=== PATIENT | male | born 1955 | race American Indian/Alaskan Native ===

== ENCOUNTER 2016-10-31 11:22 | Day surgery (SDC) | payer OTHER ==
[2016-10-31] MEDS ORDERED: NACL 0.9% 1000 ML 1,000 ML IV SCH (13:00)
[2016-10-31] MEDS ORDERED: WATER FOR IRRIG STERILE IR ONE (13:13)
[2016-10-31] MEDS ORDERED: DIPRIVAN 10 MG/ML IV ONE ×2 (13:32)
--- NOTE | 2016-10-31 13:47 | Anesthesia Consultation ---
Anesthesia Consult and Med Hx Date of service: 10/31/16 - Airway Anesthetic Teeth Evaluation: Good ROM Head & Neck: Adequate Mental/Hyoid Distance: Adequate Mallampati Class: Class II Intubation Access Assessment: Good - Pulmonary Exam CTA: Yes - Cardiac Exam Cardiac Exam: No Murmur - Pre-Operative Health Status ASA Pre-Surgery Classification: ASA2 Proposed Anesthetic Plan: MAC - Pulmonary Hx Smoking: Yes SOB: Yes Hx Sleep Apnea: No - Cardiovascular System Hx Hypertension: Yes - Central Nervous System Hx Psychiatric Problems: No - Other Systems Hx Cancer: No
[2016-10-31] MEDS ORDERED: GI SPOT IJ ONE (15:15)
--- NOTE | 2016-10-31 15:18 | Post Anesthesia Evaluation ---
- Post Anesthesia Evaluation Patient Participated: Yes Airway Patent: Yes Stable Respiratory Function: Yes Nausea/Vomiting: No Temp > 96.8F: Yes Pain Manageable: Yes Adequeate Hydration: Yes Anesthesia Complications: No
--- NOTE | 2016-10-31 15:40 | History and Physical Report ---
History of Present Illness Date of examination: 10/31/16 Date of admission: 10/31/2016 Chief complaint: Colorectal cancer screening History of present illness: 60 year old male referred for colorectal cancer screening Past History Past Medical History: GERD, hypertension Social history: denies: smoking, alcohol abuse Family history: hypertension Medications and Allergies Allergies Allergy/AdvReac Type Severity Reaction Status Date / Time No Known Allergies Allergy Verified 04/25/15 06:08 Home Medications Medication Instructions Recorded Confirmed Last Taken Type Amlodipine Besylate/Benazepril 1 cap PO DAILY 04/25/15 10/31/16 10/31/16 08:00 History [amLODIPine-Benazepril 10/40 mg] predniSONE [Deltasone] 20 mg PO QDAY 04/25/15 10/31/16 10/30/16 History Losartan [Cozaar] 100 mg PO QDAY 10/31/16 10/31/16 10/31/16 08:00 History Active Meds: Active Medications Sodium Chloride (Nacl 0.9% 1000 Ml) 1,000 mls @ 75 mls/hr IV DIRECT CRISTINA Last Admin: 10/31/16 12:35 Dose: 75 mls/hr Review of Systems All systems: negative Exam - Constitutional Vitals: Temp Pulse Resp BP Pulse Ox 97.2 F L 65 18 158/90 97 10/31/16 12:20 10/31/16 12:20 10/31/16 12:20 10/31/16 12:20 10/31/16 12:20 General appearance: Present: no acute distress, well-nourished - EENT Eyes: Present: PERRL ENT: hearing intact, clear oral mucosa - Neck Neck: Present: supple, normal ROM - Respiratory Respiratory effort: normal Respiratory: bilateral: CTA - Cardiovascular Heart Sounds: Present: S1 & S2. Absent: rub, click - Extremities Extremities: pulses symmetrical, No edema Peripheral Pulses: within normal limits - Abdominal General gastrointestinal: Present: soft, non-tender, non-distended, normal bowel sounds Male genitourinary: Present: normal - Integumentary Integumentary: Present: clear, warm, dry - Musculoskeletal Musculoskeletal: gait normal, strength equal bilaterally - Psychiatric Psychiatric: appropriate mood/affect, intact judgment & insight - Neurologic Neurologic: CNII-XII intact, moves all extremities Assessment and Plan Colorectal cancer screening Plan: Proceed with full colonoscopy
--- NOTE | 2016-10-31 16:04 | Operative Report ---
Operative Report Operative Report: Date of procedure: 10/31/2016 Procedure: Colonoscopy with multiple cold Biopsies of a distal ascending colon mass, also a submucosal injection with tattoo of the proximal and distal margins of the mass. Attending physician: Wagner Munguia MD Stripper Cutter Machine: Wagner Munguia MD Indication: 60 year old male referred for colorectal cancer screening. Consent: Informed consent was obtained after advising the patient and family regarding nature of this procedure, its indications, potential benefits as well as possible complications including but not limited to bleeding perforation and adverse reaction to medication, infection as well as other cardiopulmonary complications. An informed written and verbal consent was then obtained after due opportunity was provided for questions and answers. Monitoring: Patient was monitored continuously with pulse oximetry and electrocardiographic recordings as well as blood pressure recordings. Vital signs remained stable throughout this procedure with no untoward events. Preoperative assessment: Patient was assessed immediately prior to this procedure for capacity to tolerate monitored anesthesia care and moderate sedation as well as general anesthesia. Patient's ASA classification is 2, Mallampati class is 2, Hyomental distance is 3. Instrument: [employer] video colonoscope Medications: Propofol given intravenously in divided doses. For details please refer to anesthesia records. Description of procedure: Patient was placed in the left lateral decubitus position after achieving sedation, a digital rectal examination was performed following which the colonoscope was introduced into the anal verge and advanced to the cecum which was identified by the cecal valve, the appendiceal orifice, as well as by the cecal strap and direct transillumination. The colonoscope was subsequently withdrawn with careful inspection of all mucosal surfaces. Patient tolerated this procedure well and was subsequently taken to the recovery room. The following findings were noted. Findings: The cecum was normal. In the proximal ascending colon patient had a few scattered diverticula. In the distal ascending colon, patient had a semicircumferential polypoid mass. It had a typical endoscopic appearance of a large polyp or colon cancer and was broad-based. The distal and proximal margins of this lesion were injected submucosally with spot for endoscopic tattoo and photo identification. It was ulcerated. Several biopsies were obtained for histopathology. The rest of the colon was normal except for areas of scattered retained stool which was irrigated. On the retroflex view at the anal verge, patient had internal hemorrhoids. Impression: Ulcerated semicircumferential polypoid mass in the distal ascending colon, status post submucosal injection with tattoo of the mass and also multiple cold biopsies. Internal hemorrhoids. Plan: Follow pathology report. High-fiber diet. Patient will need resection of this mass. He is scheduled for outpatient follow -up in one week and a CT scan of the abdomen will be obtained subject to the pathology report . Additional recommendations will be made in follow-up.
[2016-10-31 16:07] VITALS: BP 142/89
--- NOTE | 2016-10-31 16:10 | Discharge Summary ---
Short Stay Discharge Plan Activity: advance as tolerated Weight Bearing Status: Weight Bear as Tolerated Diet: regular Additional Instructions: Post Sedation D/C Instructions When you return home you may resume your regular diet unless otherwise directed. Go directly home from the hospital and rest quietly. You may resume normal activities tomorrow. Do NOT drive, return to work, operate any machinery or make any important personal or business decisions today. - Do NOT drink any alcohol or take nerve or sleeping drugs. They add to the effects of the medicine still present in your body. Follow up with: SABRINA ROWE MD [Primary Care Provider] - 7 Days
== END 2016-10-31 11:23 | disposition home or self-care (01) ==
LOC: GIO 11:22
PROVIDERS: ATTEND Internal Medicine Gastroenterology
DX: Z12.11 Encounter for screening for malignant neoplasm of colon (principal); D12.2 Benign neoplasm of ascending colon; K57.30 Diverticulosis of large intestine without perforation or abscess without bleeding; K63.3 Ulcer of intestine; K21.9 Gastro-esophageal reflux disease without esophagitis; E78.00 Pure hypercholesterolemia, unspecified; I10 Essential (primary) hypertension; M19.90 Unspecified osteoarthritis, unspecified site; Z82.49 Family history of ischemic heart disease and other diseases of the circulatory system; Z87.891 Personal history of nicotine dependence
CPT/HCPCS: 45380; 45381; 88305; J2704; J7030

== ENCOUNTER 2018-11-01 04:55 | Inpatient (IN) | payer OTHER ==
[2018-11-01] MEDS ORDERED: TYLENOL PO ONE ×2 (06:18→06:20)
[2018-11-01] MEDS ORDERED: TYLENOL ONE (06:23)
--- NOTE | 2018-11-01 07:16 | Emergency Department Report ---
Addendum entered and electronically signed by AGUSTO GRIFFITHS MD 11/01/18 13:44: Laboratory Results - last 24 hr 11/01/18 11/01/18 11/01/18 12:22 12:22 12:22 WBC 13.7 H RBC 4.86 Hgb 14.4 Hct 43.9 MCV 90 MCH 30 MCHC 33 RDW 15.4 H Plt Count 192 Lymph % (Auto) 6.2 L Mccormick % (Auto) 8.4 H Eos % (Auto) 0.7 Baso % (Auto) 0.4 Lymph # 0.8 L Mccormick # 1.2 H Eos # 0.1 Baso # 0.1 Seg Neutrophils % 84.3 H Seg Neutrophils # 11.6 H PT 14.5 INR 1.09 APTT 24.8 Sodium 134 L Potassium 4.0 Chloride 96.2 L Carbon Dioxide 23 Anion Gap 19 BUN 9 Creatinine 1.0 Estimated GFR > 60 BUN/Creatinine Ratio 9 Glucose 115 H Lactic Acid Calcium 8.8 Magnesium 2.00 Total Bilirubin 0.80 Direct Bilirubin 0.2 Indirect Bilirubin 0.6 AST 18 ALT 36 Alkaline Phosphatase 62 NT-Pro-B Natriuret Pep 2203 H Total Protein 7.5 Albumin 4.2 Albumin/Globulin Ratio 1.3 Urine Color Urine Turbidity Urine pH Ur Specific Brand[place]ore Urine Protein Urine Glucose (UA) Urine Ketones Urine Blood Urine Nitrite Urine Bilirubin Urine Urobilinogen Ur Leukocyte Esterase Urine WBC (Auto) Urine RBC (Auto) Blood Type 11/01/18 11/01/18 11/01/18 12:22 12:22 12:46 WBC RBC Hgb Hct MCV MCH MCHC RDW Plt Count Lymph % (Auto) Mccormick % (Auto) Eos % (Auto) Baso % (Auto) Lymph # Mccormick # Eos # Baso # Seg Neutrophils % Seg Neutrophils # PT INR APTT Sodium Potassium Chloride Carbon Dioxide Anion Gap BUN Creatinine Estimated GFR BUN/Creatinine Ratio Glucose Lactic Acid 1.90 Calcium Magnesium Total Bilirubin Direct Bilirubin Indirect Bilirubin AST ALT Alkaline Phosphatase NT-Pro-B Natriuret Pep Total Protein Albumin Albumin/Globulin Ratio Urine Color Yellow Urine Turbidity Clear Urine pH 5.0 Ur Specific Brand[place]ore 1.060 H Urine Protein 100 mg/dl Urine Glucose (UA) Neg Urine Ketones Tr Urine Blood Neg Urine Nitrite Neg Urine Bilirubin Neg Urine Urobilinogen < 2.0 Ur Leukocyte Esterase Neg Urine WBC (Auto) < 1.0 Urine RBC (Auto) 3.0 Blood Type O POSITIVE Original Note: <LAXMI ACEVEDO - Last Filed: 11/01/18 12:27> ED ENT HPI - General Chief complaint: Dental/Oral Stated complaint: TOOTHACHE Source: patient Mode of arrival: Ambulatory Limitations: No Limitations - History of Present Illness Initial comments: This is a 62-year-old -Citizen Of [place] male presents with left lower side toothache, left earache, and swollen left lower for 2 days. Patient states he ate some fish during lunch on Friday about 5 hours after returning to work he started having left sided dental pain on lower side with pain radiating to the left ear. Patient states when he woke up yesterday evening he noticed swelling to left anterior cervical region and painful to touch. He reports increasing hoarseness. He is currently reporting pain as 9 out of 10 on pain scale and worse with swallowing. Patient denies prior history of allergy to fish. He denies drooling, fever, rhinorrhea, and myalgia. MD complaint: tooth pain (left lower side), sore throat, ear pain (left), difficulty swallowing Onset/Timin -: days(s) Location: L ear, tooth # (20) Severity: severe Severity scale (0 -10): 9 Quality: other (throbbing) Consistency: constant Improves with: none Worsens with: swallowing Associated Symptoms: pain with swallowing. denies: fever, cough, gum swelling, toothache, sore throat, tinnitus, hearing loss, discharge from ear, rhinorrhea - Related Data Home Medications Medication Instructions Recorded Confirmed Last Taken Amlodipine Besylate/Benazepril 1 cap PO DAILY 04/25/15 10/31/16 10/31/16 08:00 [amLODIPine-Benazepril 10/40 mg] predniSONE [Deltasone] 20 mg PO QDAY 04/25/15 10/31/16 10/30/16 Losartan [Cozaar] 100 mg PO QDAY 10/31/16 10/31/16 10/31/16 08:00 Allergies Allergy/AdvReac Type Severity Reaction Status Date / Time No Known Allergies Allergy Verified 04/25/15 06:08 ED Dental HPI - General Chief complaint: Dental/Oral Stated complaint: TOOTHACHE Source: patient Mode of arrival: Ambulatory Limitations: No Limitations - Related Data Home Medications Medication Instructions Recorded Confirmed Last Taken Amlodipine Besylate/Benazepril 1 cap PO DAILY 04/25/15 10/31/16 10/31/16 08:00 [amLODIPine-Benazepril 10/40 mg] predniSONE [Deltasone] 20 mg PO QDAY 04/25/15 10/31/16 10/30/16 Losartan [Cozaar] 100 mg PO QDAY 10/31/16 10/31/16 10/31/16 08:00 Allergies Allergy/AdvReac Type Severity Reaction Status Date / Time No Known Allergies Allergy Verified 04/25/15 06:08 ED Review of Systems Constitutional: denies: chills, fever ENT: ear pain (left), throat pain, dental pain (left lower side #20). denies: hearing loss, epistaxis, congestion Respiratory: denies: cough, shortness of breath, wheezing Cardiovascular: denies: chest pain, palpitations Gastrointestinal: denies: abdominal pain, nausea, diarrhea Neurological: denies: headache, weakness, paresthesias Psychiatric: denies: anxiety, depression ED Past Medical Hx - Past Medical History Previous Medical History?: Yes Hx Hypertension: Yes Hx Congestive Heart Failure: Yes Hx GERD: Yes Hx Arthritis: No Additional medical history: sleep apnea - Surgical History Past Surgical History?: Yes Additional Surgical History: Small intestines (parial) 2016 - Social History Smoking Status: Former Smoker Substance Use Type: None - Medications Home Medications: Home Medications Medication Instructions Recorded Confirmed Last Taken Type Amlodipine Besylate/Benazepril 1 cap PO DAILY 04/25/15 10/31/16 10/31/16 08:00 History [amLODIPine-Benazepril 10/40 mg] predniSONE [Deltasone] 20 mg PO QDAY 04/25/15 10/31/16 10/30/16 History Losartan [Cozaar] 100 mg PO QDAY 10/31/16 10/31/16 10/31/16 08:00 History ED Physical Exam - General Limitations: No Limitations General appearance: alert, in no apparent distress - ENT ENT exam: Present: normal orophraynx (uvula midline), mucous membranes moist - Neck Neck exam: Present: full ROM, lymphadenopathy (3 cm left anterior cervical lymphadenopathy, tenderness, mobile). Absent: meningismus, thyromegaly - Respiratory Respiratory exam: Present: normal lung sounds bilaterally. Absent: respiratory distress - Cardiovascular Cardiovascular Exam: Present: regular rate, normal rhythm. Absent: systolic murmur, diastolic murmur, rubs, gallop - Neurological Exam Neurological exam: Present: alert, oriented X3 - Psychiatric Psychiatric exam: Present: normal affect, normal mood - Skin Skin exam: Present: warm, dry, intact, normal color. Absent: rash ED Medical Decision Making - Radiology Data Radiology results: report reviewed FINAL REPORT EXAM: US SOFT TISSUE HEAD AND NECK HISTORY: 3 cm mass to left anterior cervical TECHNIQUE: Soft tissue ultrasound. PRIORS: None currently available. FINDINGS: Focus ultrasound the left anterior cervical region demonstrates an enlarged heterogeneous lesion with internal calcification. The lesion measures 5.5 x 3.2 x 5.3 cm. Calcification measures 0.7 x 1 3 x 1.7 cm. IMPRESSION: Large heterogeneous lesion with internal calcification. Differential diagnosis includes pathological lymph node and mass. Further imaging with a CT neck contrast may be helpful for better evaluation if clinically indicated. FINAL REPORT EXAM: CT NECK W CON HISTORY: r/o mass vs lymph node, per radiologist TECHNIQUE: CT of the neck with IV contrast. Coronal and sagittal reconstructed imaging provided. PRIORS: Soft tissue ultrasound November 01, 2018. FINDINGS: Nasopharynx: No nasal cavity lesions. Nasopharyngeal tonsils are not enlarged. Mild swelling of the left nasopharyngeal region noted. Oropharynx: Ayr and lingual tonsils are not enlarged. No distinct lesion. Floor of the mouth is unremarkable. Mild swelling of the left oral pharyngeal region. Pharynx: Epiglottis and aryepiglottic folds are unremarkable. Mild swelling of the left parapharyngeal region and [id number] swelling of the left retropharyngeal region. Mild airway compromise noted. Larynx: True and false cords are symmetrical. Patent vascular structures demonstrate calcifications. No mass lesions identified. Parotid glands demonstrate normal appearance. Enlarged heterogeneous left submandibular gland measures 3.8 x 4.2 cm. Two large stones within the gland measure 9.9 and 10.0 mm. Nearby punctate stone measures 2 mm. Right submandibular gland is less prominent but also prominent and heterogeneous measuring 2.3 x 3.0 cm. Right submandibular stones at the superior aspect of the gland measure 7 and 3 mm and at the inferior aspect of the gland measure 7 x 6 mm. Areas of low attenuation within both gland suggests dilated ducts. Stranding around both glands identified. Subcutaneous soft tissue stranding and swelling noted. Slight thickening of the adjacent platysmas muscle identified. Adjacent upper cervical and submandibular lymph nodes are enlarged. One of the larger left level 2A lymph nodes measure 16 x 7.3 mm. A prominent left submandibular lymph node measures 14 x 5 mm. Right level 2A lymph node measures 18 x 8 mm and a right submandibular lymph node measures 12 x 5 mm. No stone is present within the submandibular ducts. Stranding swelling extends into the submandibular soft tissues and upper cervical spine up to the level of the thyroid cartilage. No subcutaneous abscess identified. The thyroid gland is unremarkable. Opacified right sphenoid sinus with osseous wall thickening. Air-fluid level in the left sphenoid sinus. Large polyp or retention cysts in the left maxillary sinus measures 3.0 cm. Soft tissue density and opacification of nasal cavities and ethmoid air cells identified. Polyp or retention cysts in the right maxillary sinus measure 6, 8, and 5 mm. Partially visualized both frontal sinuses are opacified. No destructive features. No obvious expansile component. Mild mucosal thickening at the alveolar recess of the right maxillary sinus. Partially imaged temporal bones are unremarkable. Cervical degenerative disc and arthropathy. Grade 1 anterior subluxation C5-C6. Partial images of the lungs are unremarkable. IMPRESSION: Suspect bilateral sialoadenitis of both submandibular glands. Worse on the left. Bilateral submandibular stones identified. No distinct stone noted within the submandibular ducts. No distinct abscess identified. Left pharyngeal swelling down to the level of the epiglottis as well as retropharyngeal swelling causes mild narrowing of the airway. Soft tissue swelling around both glands extending into cervical soft tissues down to the thyroid cartilage. Upper cervical and submandibular reactive adenopathy. Significant sinus disease. Suspect polyposis syndrome versus chronic sinusitis. Polyps or other soft tissue lesions within both nasal cavities. - Medical Decision Making Patient was examined by me. Vitals are normal and patient is in slight acute distress. Obtained US of soft tissues of the neck. Radiogragh dictated by radiologist. Large heterogeneous lesion with internal calcification. Differential diagnosis includes pathological lymph node and mass. Further imaging with a CT neck cont rast may be helpful for better evaluation if clinically indicated. Obtained CT of neck. Large heterogeneous lesion with internal calcification. Differential diagnosis includes pathological lymph node and mass. Further imaging with a CT neck contrast may be helpful for better evaluation if clinically indicated. Given Dexamethasone 8 mg IV once while ER. Consulted Dr. Griffiths. Decision to admit. ED Disposition Clinical Impression: Acute sialoadenitis, Cardiomyopathy Difficulty swallowing Qualifiers: Dysphagia type: oropharyngeal phase Qualified Code(s): R13.12 - Dysphagia, oropharyngeal phase Disposition: 09 OP ADMIT IP TO THIS HOSP Is pt being admited?: Yes Condition: Stable Referrals: PRIMARY CARE, [Primary Care Provider] - 3-5 Days <AGUSTO GRIFFITHS - Last Filed: 11/01/18 13:43> ED Review of Systems ROS: Stated complaint: TOOTHACHE Other details as noted in HPI ED Course Vital Signs 11/01/18 11/01/18 11/01/18 04:59 06:11 07:33 Temperature 97.8 F 97.8 F Pulse Rate 91 H 92 H Respiratory 20 20 18 Rate Blood Pressure 166/98 166/98 Blood Pressure [Right] O2 Sat by Pulse 98 98 Oximetry 11/01/18 08:15 Temperature 99.8 F H Pulse Rate 87 Respiratory 18 Rate Blood Pressure Blood Pressure 189/105 [Right] O2 Sat by Pulse 98 Oximetry - Reevaluation(s) Reevaluation #1: Patient seen and examined. He does have a slightly hoarse voice. He does have substantial brawny sialadenitis specifically on the left. He has good mouth opening to almost 2 fingers. He has no signs of airway compromise. I reviewed this CT finding with the radiologist mentions some swelling not far from the epiglottis. The epiglottis itself is normal. There is no significant airway constriction. I believe the patient is appropriate for admission to this facility. He is given antibiotic coverage with ceftriaxone and clindamycin. He is already been given Decadron. He should be observed for any signs of airway compromise which she certainly does not have at this point. He is admitted to the hospitalist service by Dr. Disla. 11/01/18 13:41 ED Medical Decision Making - Lab Data Result diagrams: 11/01/18 12:22 11/01/18 12:22 Critical care attestation.: If time is entered above; I have spent that time in minutes in the direct care of this critically ill patient, excluding procedure time. ED Disposition Is pt being admited?: Yes Does the pt Need Aspirin: Yes Time of Disposition: 13:43
[2018-11-01] MEDS ORDERED: NORCO 5/325 PO ONE (07:20)
--- NOTE | 2018-11-01 09:04 | Ultrasound Report ---
FINAL REPORT EXAM: US SOFT TISSUE HEAD AND NECK HISTORY: 3 cm mass to left anterior cervical TECHNIQUE: Soft tissue ultrasound. PRIORS: None currently available. FINDINGS: Focus ultrasound the left anterior cervical region demonstrates an enlarged heterogeneous lesion with internal calcification. The lesion measures 5.5 x 3.2 x 5.3 cm. Calcification measures 0.7 x 1 3 x 1 .7 cm. IMPRESSION: Large heterogeneous lesion with internal calcification. Differential diagnosis includes pathological lymph node and mass. Further imaging with a CT neck contrast may be helpful for better evaluation if clinically indicated.
--- NOTE | 2018-11-01 11:48 | Cat Scan Report ---
FINAL REPORT EXAM: CT NECK W CON HISTORY: r/o mass vs lymph node, per radiologist TECHNIQUE: CT of the neck with IV contrast. Coronal and sagittal reconstructed imaging provided. PRIORS: Soft tissue ultrasound November 01, 2018. FINDINGS: Nasopharynx: No nasal cavity lesions. Nasopharyngeal tonsils are not enlarged. Mild swelling of the l eft nasopharyngeal region noted. Oropharynx: [place] and lingual tonsils are not enlarged. No distinct lesion. Floor of the mouth is unremarkable. Mild swelling of the left oral pharyngeal region. Pharynx: Epiglottis and aryepiglottic folds are unremarkable. Mild swelling of the left parapharyngea l region and [id number] swelling of the left retropharyngeal region. Mild airway compromise not ed. Larynx: True and false cords are symmetrical. Patent vascular structures demonstrate calcifications. No mass lesions identified. Parotid glands demonstrate normal appearance. Enlarged heterogeneous left submandibular gland measures 3.8 x 4.2 cm. Two large stones within the gl and measure 9.9 and 10.0 mm. Nearby punctate stone measures 2 mm. Right submandibular gland is less p rominent but also prominent and heterogeneous measuring 2.3 x 3.0 cm. Right submandibular stones at t he superior aspect of the gland measure 7 and 3 mm and at the inferior aspect of the gland measure 7 x 6 mm. Areas of low attenuation within both gland suggests dilated ducts. Stranding around both glan ds identified. Subcutaneous soft tissue stranding and swelling noted. Slight thickening of the adjace nt platysmas muscle identified. Adjacent upper cervical and submandibular lymph nodes are enlarged. One of the larger left level 2A l ymph nodes measure 16 x 7.3 mm. A prominent left submandibular lymph node measures 14 x 5 mm. Right l evel 2A lymph node measures 18 x 8 mm and a right submandibular lymph node measures 12 x 5 mm. No sto ne is present within the submandibular ducts. Stranding swelling extends into the submandibular soft tissues and upper cervical spine up to the level of the thyroid cartilage. No subcutaneous abscess id entified. The thyroid gland is unremarkable. Opacified right sphenoid sinus with osseous wall thickening. Air-fluid level in the left sphenoid sin us. Large polyp or retention cysts in the left maxillary sinus measures 3.0 cm. Soft tissue density a nd opacification of nasal cavities and ethmoid air cells identified. Polyp or retention cysts in the right maxillary sinus measure 6, 8, and 5 mm. Partially visualized both frontal sinuses are opacified . No destructive features. No obvious expansile component. Mild mucosal thickening at the alveolar re cess of the right maxillary sinus. Partially imaged temporal bones are unremarkable. Cervical degenerative disc and arthropathy. Grade 1 anterior subluxation C5-C6. Partial images of the lungs are unremarkable. IMPRESSION: Suspect bilateral sialoadenitis of both submandibular glands. Worse on the left. Bilateral submandibu lar stones identified. No distinct stone noted within the submandibular ducts. No distinct abscess id entified. Left pharyngeal swelling down to the level of the epiglottis as well as retropharyngeal swelling caus es mild narrowing of the airway. Soft tissue swelling around both glands extending into cervical soft tissues down to the thyroid cart ilage. Upper cervical and submandibular reactive adenopathy. Significant sinus disease. Suspect polyposis syndrome versus chronic sinusitis. Polyps or other soft tissue lesions within both nasal cavities.
[2018-11-01] MEDS ORDERED: DECADRON IM ONE (12:00)
[2018-11-01] MEDS ORDERED: CLEOCIN 600 MG/50 mL 600 MG/50 ML BAG IV ONE (12:07)
[2018-11-01] MEDS ORDERED: NACL 0.9% 1000 ML 1,000 ML IV ONE (12:09)
[2018-11-01] MEDS ORDERED: DECADRON IV ONE (12:10)
[2018-11-01 12:44] LABS: Basophils # (Auto) 0.1 K/mm3 (0.0-0.1); Basophils % (Auto) 0.4 % (0.0-1.8); Eosinophils # (Auto) 0.1 K/mm3 (0.0-0.4); Eosinophils % (Auto) 0.7 % (0.0-4.3); Hematocrit 43.9 % (35.5-45.6); Hemoglobin 14.4 gm/dl (11.8-15.2); Lymphocytes # (Auto) 0.8 K/mm3 (1.2-5.4); Lymphocytes % (Auto) 6.2 % (13.4-35.0); Mean Corpuscular HGB Conc 33 % (32-34); Mean Corpuscular Volume 90 fl (84-94); Monocytes # (Auto) 1.2 K/mm3 (0.0-0.8); Monocytes % (Auto) 8.4 % (0.0-7.3); Red Blood Count 4.86 M/mm3 (3.65-5.03); Red Cell Distribution Width 15.4 % (13.2-15.2)
[2018-11-01 12:51] LABS: INR 1.09 (0.87-1.13)
[2018-11-01 12:52] LABS: Partial Thromboplastin Time 24.8 Sec. (24.2-36.6)
[2018-11-01] MEDS ORDERED: ROCEPHIN/NS 1 GM/50 ML 1 GM/50 ML BAG IV ONE (13:00)
[2018-11-01 13:01] LABS: Alanine Aminotransferase 36 units/L (7-56); Albumin 4.2 g/dL (3.9-5); BUN/Creatinine Ratio 9; Bilirubin,Direct 0.2 mg/dL (0-0.2); Blood Urea Nitrogen 9 mg/dL (9-20); Calcium 8.8 mg/dL (8.4-10.2); Hemolysis Index 10
[2018-11-01 13:24] LABS: Platelet Count 192 K/mm3 (140-440)
[2018-11-01 13:25] LABS: Bilirubin,Urine NEG (Negative); Blood,Urine NEG (Negative); Color,Urine Yellow (Yellow); Urobilinogen,Urine < 2.0 mg/dL (<2.0); WBC,Urine < 1.0 /HPF (0.0-6.0)
--- NOTE | 2018-11-01 13:48 | XRay Report ---
FINAL REPORT EXAM: XR CHEST 1V AP HISTORY: hypertension TECHNIQUE: Frontal chest x-ray. PRIORS: None currently available. FINDINGS: [id number] cardiomegaly. Prominent bilateral pulmonary markings with subtle patchy airspace opacities. No pneumothorax. No eff usion. Elevated right hemidiaphragm. There are no suspicious osseous lesions. IMPRESSION: Suspect pulmonary vascular congestion with developing edema. Differential diagnosis includes pneumoni tis and pneumonia. Cardiomegaly. Please correlate for possible CHF.
[2018-11-01] MEDS: BABY ASPIRIN PO ONE ×2 (15:22→18:01)
[2018-11-01] MEDS ORDERED: ASPIRIN ONE (15:26)
[2018-11-01] MEDS ORDERED: APRESOLINE IV ONE (15:26)
[2018-11-01] MEDS ORDERED: APRESOLINE ONE (15:31)
[2018-11-01] MEDS ORDERED: TYLENOL PO PRN (17:40)
[2018-11-01] MEDS ORDERED: DILAUDID IM PRN (18:49)
[2018-11-01] MEDS ORDERED: PERCOCET 5/325 PO PRN (18:50)
[2018-11-02] MEDS ORDERED: ZOFRAN IV PRN (00:09)
[2018-11-02] MEDS ORDERED: TYLENOL PO PRN (00:09)
[2018-11-02] MEDS ORDERED: SODIUM CHLORIDE FLUSH SYRINGE 10 ML IV PRN (00:09)
--- NOTE | 2018-11-02 00:16 | History and Physical Report ---
History of Present Illness Date of examination: 11/01/18 Date of admission: 11/01/18 13:45 Chief complaint: L chin swelling History of present illness: 62 year old AAM presents with swelling of L chin for 2 days.Patient feels that it was precipitated by eating fish on Friday (10/30/18).Also developed L lower tooth pain.No fever or chills.Patient has pain while swallowing but no difficulty in swelling. Past Medical History Previous Medical History?: Yes Hx Hypertension: Yes Hx Congestive Heart Failure: Yes Hx GERD: Yes Additional medical history: sleep apnea Surgical History Past Surgical History?: Yes Additional Surgical History: Small intestines (parial) 2017 Social History Smoking Status: Former Smoker Substance Use Type: None Medications Home Medications: Home Medications Medication Instructions Recorded Confirmed Last Taken Type Amlodipine Besylate/Benazepril 1 cap PO DAILY 04/25/15 10/31/16 10/31/16 08:00 History [amLODIPine-Benazepril 10/40 mg] predniSONE [Deltasone] 20 mg PO QDAY 04/25/15 10/31/16 10/30/16 History Losartan [Cozaar] 100 mg PO QDAY 10/31/16 10/31/16 10/31/16 08:00 History Review of Systems Constitutional: denies: chills, fever ENT: ear pain (left), throat pain, dental pain (left lower side #20). denies: hearing loss, epistaxis, congestion Respiratory: denies: cough, shortness of breath, wheezing Cardiovascular: denies: chest pain, palpitations Gastrointestinal: denies: abdominal pain, nausea, diarrhea Neurological: denies: headache, weakness, paresthesias Psychiatric: denies: anxiety, depression Medications and Allergies Allergies Allergy/AdvReac Type Severity Reaction Status Date / Time No Known Allergies Allergy Verified 04/25/15 06:08 Home Medications Medication Instructions Recorded Confirmed Last Taken Type Losartan [Cozaar] 100 mg PO QDAY 10/31/16 11/01/18 10/31/18 09:00 History Furosemide [Lasix] 20 mg PO DAILY 11/01/18 11/01/18 10/31/18 09:00 History Metoprolol [Lopressor TAB] 50 mg PO BID 11/01/18 11/01/18 10/31/18 22:00 History Montelukast [Singulair] 10 units PO QHS 11/01/18 11/01/18 10/31/18 22:00 History Potassium Chloride [K-Dur] 10 meq PO QDAY 11/01/18 11/01/18 10/31/18 09:00 History hydrALAZINE [Apresoline TAB] 100 mg PO BID 11/01/18 11/01/18 10/31/18 22:00 History Active Meds: Active Medications Acetaminophen (Tylenol) 650 mg PO Q6H PRN PRN Reason: Pain, Mild (1-3) Acetaminophen (Tylenol) 650 mg PO Q4H PRN PRN Reason: Pain MILD(1-3)/Fever >100.5/HUMPHREY Famotidine (Pepcid) 20 mg IV BID CRISTINA Hydromorphone HCl (Dilaudid) 0.5 mg IM Q4H PRN PRN Reason: Pain , Severe (7-10) Last Admin: 11/01/18 19:02 Dose: 0.5 mg Documented by: Ceftriaxone Sodium (Rocephin/Ns 2 Gm/100 Ml) 2 gm in 100 mls @ 200 mls/hr IV Q24HR CRISTINA; Protocol Sodium Chloride (Nacl 0.9% 1000 Ml) 1,000 mls @ 75 mls/hr IV DIRECT CRISTINA Losartan Potassium (Cozaar) 100 mg PO QDAY CRISTINA Methylprednisolone Sodium Succinate (Solu-Medrol) 60 mg IV Q8HR CRISTINA Ondansetron HCl (Zofran) 4 mg IV Q8H PRN PRN Reason: Nausea And Vomiting Oxycodone/Acetaminophen (Percocet 5/325) 1 tab PO Q6H PRN PRN Reason: Pain, Moderate (4-6) Sodium Chloride (Sodium Chloride Flush Syringe 10 Ml) 10 ml IV BID [facility] Sodium Chloride (Sodium Chloride Flush Syringe 10 Ml) 10 ml IV PRN PRN PRN Reason: LINE FLUSH Exam - Constitutional Vitals: Temp Pulse Resp BP Pulse Ox 98.0 F 103 H 20 167/107 95 11/01/18 17:10 11/01/18 17:10 11/01/18 17:10 11/01/18 17:10 11/01/18 17:10 General appearance: Present: no acute distress, well-nourished - EENT Eyes: Present: PERRL ENT: hearing intact, clear oral mucosa, other (L submandibular swelling 3cmx 3cmFirm ,in consistency ) - Neck Neck: Present: supple, normal ROM - Respiratory Respiratory effort: normal Respiratory: bilateral: CTA - Cardiovascular Heart rate: 78 Rhythm: regular Heart Sounds: Present: S1 & S2. Absent: rub, click - Extremities Extremities: pulses symmetrical, No edema Peripheral Pulses: within normal limits - Abdominal General gastrointestinal: Present: soft, non-tender, non-distended, normal bowel sounds Male genitourinary: Present: normal - Integumentary Integumentary: Present: clear, warm, dry - Musculoskeletal Musculoskeletal: gait normal, strength equal bilaterally - Psychiatric Psychiatric: appropriate mood/affect, intact judgment & insight - Neurologic Neurologic: CNII-XII intact, moves all extremities - Allied Health Allied health notes reviewed: nursing, case management Results - Labs CBC & Chem 7: 11/01/18 12:22 11/01/18 12:22 Labs: Laboratory Last Values WBC 13.7 K/mm3 (4.5-11.0) H 11/01/18 12:22 RBC 4.86 M/mm3 (3.65-5.03) 11/01/18 12:22 Hgb 14.4 gm/dl (11.8-15.2) 11/01/18 12:22 Hct 43.9 % (35.5-45.6) 11/01/18 12:22 MCV 90 fl (84-94) 11/01/18 12:22 MCH 30 pg (28-32) 11/01/18 12:22 MCHC 33 % (32-34) 11/01/18 12:22 RDW 15.4 % (13.2-15.2) H 11/01/18 12:22 Plt Count 192 K/mm3 (140-440) 11/01/18 12:22 Lymph % (Auto) 6.2 % (13.4-35.0) L 11/01/18 12:22 [place] % (Auto) 8.4 % (0.0-7.3) H 11/01/18 12:22 Eos % (Auto) 0.7 % (0.0-4.3) 11/01/18 12:22 Baso % (Auto) 0.4 % (0.0-1.8) 11/01/18 12:22 Lymph # 0.8 K/mm3 (1.2-5.4) L 11/01/18 12:22 [place] # 1.2 K/mm3 (0.0-0.8) H 11/01/18 12:22 Eos # 0.1 K/mm3 (0.0-0.4) 11/01/18 12:22 Baso # 0.1 K/mm3 (0.0-0.1) 11/01/18 12:22 Seg Neutrophils % 84.3 % (40.0-70.0) H 11/01/18 12:22 Seg Neutrophils # 11.6 K/mm3 (1.8-7.7) H 11/01/18 12:22 PT 14.5 Sec. (12.2-14.9) 11/01/18 12:22 INR 1.09 (0.87-1.13) 11/01/18 12:22 APTT 24.8 Sec. (24.2-36.6) 11/01/18 12:22 Sodium 134 mmol/L (137-145) L 11/01/18 12:22 Potassium 4.0 mmol/L (3.6-5.0) 11/01/18 12:22 Chloride 96.2 mmol/L (98-107) L 11/01/18 12:22 Carbon Dioxide 23 mmol/L (22-30) 11/01/18 12:22 Anion Gap 19 mmol/L 11/01/18 12:22 BUN 9 mg/dL (9-20) 11/01/18 12:22 Creatinine 1.0 mg/dL (0.8-1.5) 11/01/18 12:22 Estimated GFR > 60 ml/min 11/01/18 12:22 BUN/Creatinine Ratio 9 % 11/01/18 12:22 Glucose 115 mg/dL (75-100) H 11/01/18 12:22 Lactic Acid 1.90 mmol/L (0.7-2.0) 11/01/18 12:22 Calcium 8.8 mg/dL (8.4-10.2) 11/01/18 12:22 Magnesium 2.00 mg/dL (1.7-2.3) 11/01/18 12:22 Total Bilirubin 0.80 mg/dL (0.1-1.2) 11/01/18 12:22 Direct Bilirubin 0.2 mg/dL (0-0.2) 11/01/18 12:22 Indirect Bilirubin 0.6 mg/dL 11/01/18 12:22 AST 18 units/L (5-40) 11/01/18 12:22 ALT 36 units/L (7-56) 11/01/18 12:22 Alkaline Phosphatase 62 units/L (35-129) 11/01/18 12:22 NT-Pro-B Natriuret Pep 2203 pg/mL (0-900) H 11/01/18 12:22 Total Protein 7.5 g/dL (6.3-8.2) 11/01/18 12:22 Albumin 4.2 g/dL (3.9-5) 11/01/18 12:22 Albumin/Globulin Ratio 1.3 % 11/01/18 12:22 Urine Color Yellow (Yellow) 11/01/18 12:46 Urine Turbidity Clear (Clear) 11/01/18 12:46 Urine pH 5.0 (5.0-7.0) 11/01/18 12:46 Ur Specific [place] 1.060 (1.003-1.030) H 11/01/18 12:46 Urine Protein 100 mg/dl mg/dL (Negative) 11/01/18 12:46 Urine Glucose (UA) Neg mg/dL (Negative) 11/01/18 12:46 Urine Ketones Tr mg/dL (Negative) 11/01/18 12:46 Urine Blood Neg (Negative) 11/01/18 12:46 Urine Nitrite Neg (Negative) 11/01/18 12:46 Urine Bilirubin Neg (Negative) 11/01/18 12:46 Urine Urobilinogen < 2.0 mg/dL (<2.0) 11/01/18 12:46 Ur Leukocyte Esterase Neg (Negative) 11/01/18 12:46 Urine WBC (Auto) < 1.0 /HPF (0.0-6.0) 11/01/18 12:46 Urine RBC (Auto) 3.0 /HPF (0.0-6.0) 11/01/18 12:46 Blood Type O POSITIVE 11/01/18 12:22 Antibody Screen Negative 11/01/18 12:22 - Imaging and Cardiology Imaging and Cardiology: Neck CT IMPRESSION: Suspect bilateral sialoadenitis of both submandibular glands. Worse on the left. Bilateral submandibular stones identified. No distinct stone noted within the submandibular ducts. No distinct abscess identified. Left pharyngeal swelling down to the level of the epiglottis as well as retropharyngeal swelling causes mild narrowing of the airway. Soft tissue swelling around both glands extending into cervical soft tissues down to the thyroid cartilage. Upper cervical and submandibular reactive adenopathy. Significant sinus disease. Suspect polyposis syndrome versus chronic sinusitis. Polyps or other soft tissue lesions within both nasal cavities. Cervical xray IMPRESSION: Large heterogeneous lesion with internal calcification. Differential diagnosis includes pathological lymph node and mass. Further imaging with a CT neck contrast may be helpful for better evaluation if clinically indicated. CXR IMPRESSION: Suspect pulmonary vascular congestion with developing edema. Differential diagnosis includes pneumonitis and pneumonia. Cardiomegaly. Please correlate for possible CHF. Assessment and Plan Advance Directives: Yes (Full code) VTE prophylaxis?: Chemical - Patient Problems (1) Acute sialoadenitis Current Visit: Yes Status: Acute Plan to address problem: Patient initiated on IV Ceftriaxone and Vancomycin Also IV Steroids ENT consult requested by Dr Fletcher (2) HTN (hypertension) Current Visit: Yes Status: Chronic Qualifiers: Hypertension type: essential hypertension Qualified Code(s): I10 - Essential (primary) hypertension Plan to address problem: COnt antihypertensives (3) CHF (congestive heart failure) Current Visit: Yes Status: Chronic Qualifiers: Heart failure type: combined systolic and diastolic Plan to address problem: Not on any diuretics (4) Hyponatremia Current Visit: Yes Status: Acute Plan to address problem: Mild IV NS for 12 hrs (5) DVT prophylaxis Current Visit: Yes Status: Acute Plan to address problem: On Lovenox and GI prophylaxis
[2018-11-02] MEDS ORDERED: VANCOMYCIN 2,000 MG in NACL 0.9% 500 ML 500 ML IV ONE (01:00)
[2018-11-02] MEDS ORDERED: VANCOMYCIN PHARMACY TO DOSE IV SCH (01:00)
[2018-11-02] MEDS: NACL 0.9% 1000 ML 1,000 ML IV SCH (01:01)
[2018-11-02] MEDS: SOLU-Medrol IV SCH ×3 (01:03→18:38)
[2018-11-02] MEDS: PEPCID IV SCH ×3 (01:07→23:04)
[2018-11-02] MEDS: COZAAR PO SCH (10:40)
[2018-11-02] MEDS: SODIUM CHLORIDE FLUSH SYRINGE 10 ML IV SCH ×2 (10:42→23:04)
[2018-11-02] MEDS: ROCEPHIN/NS 2 GM/100 ML 2 GM/100 ML BAG IV SCH (11:06)
[2018-11-02] MEDS ORDERED: VANCOMYCIN 1,750 MG in NACL 0.9% 500 ML 500 ML IV SCH (13:00)
[2018-11-02] MEDS ORDERED: D50W (25GM) Syringe IV PRN (16:53)
--- NOTE | 2018-11-02 17:01 | Progress Note ---
Assessment and Plan Assessment and plan: 62 year old AAM presents with swelling of Left chin swelling for 2 days. Patient feels that it was precipitated by eating fish on [place] (10/30/18). Also developed L lower tooth pain. No fever or chills. Patient has pain while swallowing but no difficulty in swelling. Acute sialoadenitis - Patient is on IV antibiotics, IV steroids - No respiratory compromise, no problems swallowing - Dr. Disla discussed with Dr Karlo Orr, ENT and said treat with IV antibiotics for 48 hrs and discharge with clinidamycin, O/P f/U with her Hypertension - Continue medications DVT prophylaxis - on heparin Disposition - Continue inpatient care. History Interval history: Patient was seen and evaluated this morning, patient didn't have any problem swallowing, no problems in breathing. Hospitalist Physical - Physical exam Narrative exam: Not in cardiopulmonary distress. The patient is obese. Submandibular swelling, nontender Vital signs as documented. Head exam is unremarkable. No scleral icterus . Neck is without jugular venous distension, thyromegaly, or carotid bruits. Lungs are clear to auscultation. Cardiac exam reveals regular rate and Rhythm. First and second heart sounds normal. No murmurs, rubs or gallops. Abdominal exam reveals normal bowel sounds, no masses, no organomegaly and no aortic enlargement. Extremities are nonedematous and both femoral and pedal pulses are normal. BOBBIN SORTER: Alert and oriented 3. No focal weakness. - Constitutional Vitals: Temp Pulse Resp BP Pulse Ox 97.9 F 85 24 151/103 97 11/02/18 05:16 11/02/18 05:16 11/02/18 05:16 11/02/18 10:40 11/02/18 05:16 General appearance: Present: no acute distress, well-nourished Results - Labs CBC & Chem 7: 11/01/18 12:22 11/01/18 12:22 Labs: Laboratory Last Values WBC 13.7 K/mm3 (4.5-11.0) H 11/01/18 12:22 RBC 4.86 M/mm3 (3.65-5.03) 11/01/18 12:22 Hgb 14.4 gm/dl (11.8-15.2) 11/01/18 12:22 Hct 43.9 % (35.5-45.6) 11/01/18 12:22 MCV 90 fl (84-94) 11/01/18 12:22 MCH 30 pg (28-32) 11/01/18 12:22 MCHC 33 % (32-34) 11/01/18 12:22 RDW 15.4 % (13.2-15.2) H 11/01/18 12:22 Plt Count 192 K/mm3 (140-440) 11/01/18 12:22 Lymph % (Auto) 6.2 % (13.4-35.0) L 11/01/18 12:22 [place] % (Auto) 8.4 % (0.0-7.3) H 11/01/18 12:22 Eos % (Auto) 0.7 % (0.0-4.3) 11/01/18 12:22 Baso % (Auto) 0.4 % (0.0-1.8) 11/01/18 12:22 Lymph # 0.8 K/mm3 (1.2-5.4) L 11/01/18 12:22 [place] # 1.2 K/mm3 (0.0-0.8) H 11/01/18 12:22 Eos # 0.1 K/mm3 (0.0-0.4) 11/01/18 12:22 Baso # 0.1 K/mm3 (0.0-0.1) 11/01/18 12:22 Seg Neutrophils % 84.3 % (40.0-70.0) H 11/01/18 12:22 Seg Neutrophils # 11.6 K/mm3 (1.8-7.7) H 11/01/18 12:22 PT 14.5 Sec. (12.2-14.9) 11/01/18 12:22 INR 1.09 (0.87-1.13) 11/01/18 12:22 APTT 24.8 Sec. (24.2-36.6) 11/01/18 12:22 Sodium 134 mmol/L (137-145) L 11/01/18 12:22 Potassium 4.0 mmol/L (3.6-5.0) 11/01/18 12:22 Chloride 96.2 mmol/L (98-107) L 11/01/18 12:22 Carbon Dioxide 23 mmol/L (22-30) 11/01/18 12:22 Anion Gap 19 mmol/L 11/01/18 12:22 BUN 9 mg/dL (9-20) 11/01/18 12:22 Creatinine 1.0 mg/dL (0.8-1.5) 11/01/18 12:22 Estimated GFR > 60 ml/min 11/01/18 12:22 BUN/Creatinine Ratio 9 % 11/01/18 12:22 Glucose 115 mg/dL (75-100) H 11/01/18 12:22 Hemoglobin A1c 7.4 % (4-6) H 11/02/18 00:38 Lactic Acid 1.90 mmol/L (0.7-2.0) 11/01/18 12:22 Calcium 8.8 mg/dL (8.4-10.2) 11/01/18 12:22 Magnesium 2.00 mg/dL (1.7-2.3) 11/01/18 12:22 Total Bilirubin 0.80 mg/dL (0.1-1.2) 11/01/18 12:22 Direct Bilirubin 0.2 mg/dL (0-0.2) 11/01/18 12:22 Indirect Bilirubin 0.6 mg/dL 11/01/18 12:22 AST 18 units/L (5-40) 11/01/18 12:22 ALT 36 units/L (7-56) 11/01/18 12:22 Alkaline Phosphatase 62 units/L (35-129) 11/01/18 12:22 NT-Pro-B Natriuret Pep 2203 pg/mL (0-900) H 11/01/18 12:22 Total Protein 7.5 g/dL (6.3-8.2) 11/01/18 12:22 Albumin 4.2 g/dL (3.9-5) 11/01/18 12:22 Albumin/Globulin Ratio 1.3 % 11/01/18 12:22 Urine Color Yellow (Yellow) 11/01/18 12:46 Urine Turbidity Clear (Clear) 11/01/18 12:46 Urine pH 5.0 (5.0-7.0) 11/01/18 12:46 Ur Specific [place] 1.060 (1.003-1.030) H 11/01/18 12:46 Urine Protein 100 mg/dl mg/dL (Negative) 11/01/18 12:46 Urine Glucose (UA) Neg mg/dL (Negative) 11/01/18 12:46 Urine Ketones Tr mg/dL (Negative) 11/01/18 12:46 Urine Blood Neg (Negative) 11/01/18 12:46 Urine Nitrite Neg (Negative) 11/01/18 12:46 Urine Bilirubin Neg (Negative) 11/01/18 12:46 Urine Urobilinogen < 2.0 mg/dL (<2.0) 11/01/18 12:46 Ur Leukocyte Esterase Neg (Negative) 11/01/18 12:46 Urine WBC (Auto) < 1.0 /HPF (0.0-6.0) 11/01/18 12:46 Urine RBC (Auto) 3.0 /HPF (0.0-6.0) 11/01/18 12:46 Blood Type O POSITIVE 11/01/18 12:22 Antibody Screen Negative 11/01/18 12:22
[2018-11-02] MEDS: VANCOMYCIN 1,500 MG in NACL 0.9% 500 ML 500 ML IV SCH (18:39)
[2018-11-02] MEDS: HEPARIN SUB-Q SCH (23:03)
[2018-11-02] MEDS: APRESOLINE PO SCH (23:03)
[2018-11-02] MEDS: HumaLOG SUB-Q SCH (23:03)
[2018-11-02] MEDS: SINGULAIR PO SCH (23:04)
[2018-11-02] MEDS: LOPRESSOR PO SCH (23:04)
[2018-11-03] MEDS: SOLU-Medrol IV SCH ×3 (01:29→17:13)
[2018-11-03 05:57] LABS: Hematocrit 38.7 % (35.5-45.6); Hemoglobin 12.6 gm/dl (11.8-15.2); Mean Corpuscular HGB Conc 33 % (32-34); Mean Corpuscular Volume 91 fl (84-94); Platelet Count 219 K/mm3 (140-440); Red Blood Count 4.24 M/mm3 (3.65-5.03); Red Cell Distribution Width 15.5 % (13.2-15.2)
[2018-11-03] MEDS: VANCOMYCIN 1,500 MG in NACL 0.9% 500 ML 500 ML IV SCH ×2 (06:06→17:18)
[2018-11-03] MEDS: LASIX PO SCH (06:07)
[2018-11-03 06:24] LABS: Alanine Aminotransferase 27 units/L (7-56); Albumin 3.6 g/dL (3.9-5); BUN/Creatinine Ratio 20; Blood Urea Nitrogen 18 mg/dL (9-20); Calcium 8.3 mg/dL (8.4-10.2); Hemolysis Index 10
[2018-11-03 07:03] LABS: Creatine Kinase MB 6.6 ng/mL (0.0-4.0)
[2018-11-03] MEDS: HumaLOG SUB-Q SCH ×4 (09:46→21:56)
[2018-11-03] MEDS ORDERED: NON-FORMULARY (Losartan [Cozaar] 100 MG) PO SCH (10:00)
[2018-11-03] MEDS: LOPRESSOR PO SCH ×2 (10:04→21:42)
[2018-11-03] MEDS: COZAAR PO SCH ×2 (10:05→12:44)
[2018-11-03] MEDS: APRESOLINE PO SCH ×2 (10:06→21:42)
[2018-11-03] MEDS: PEPCID IV SCH ×2 (10:06→21:41)
[2018-11-03] MEDS: HEPARIN SUB-Q SCH ×2 (10:06→21:41)
[2018-11-03] MEDS: K-DUR PO SCH (10:06)
[2018-11-03] MEDS: ROCEPHIN/NS 2 GM/100 ML 2 GM/100 ML BAG IV SCH (10:07)
[2018-11-03] MEDS: SODIUM CHLORIDE FLUSH SYRINGE 10 ML IV SCH ×2 (10:08→21:43)
--- NOTE | 2018-11-03 11:23 | Progress Note ---
Assessment and Plan Assessment and plan: Acute sialoadenitis - Patient is on IV antibiotics, IV steroids - No respiratory compromise, no problems swallowing - Dr. Disla discussed with Dr Karlo Orr, ENT and said treat with IV antibiotics for 48 hrs and discharge with clinidamycin, O/P f/U with her NSVT -Cardiology consultation Hypertension - Continue medications DVT prophylaxis - on heparin Disposition - Continue inpatient care. History Interval history: No new issues overnight. Nurse reports 7 beat run of V. tach this morning. Hospitalist Physical - Constitutional Vitals: Temp Pulse Resp BP Pulse Ox 97.6 F 89 20 130/88 96 11/03/18 06:18 11/03/18 06:18 11/03/18 06:18 11/03/18 10:05 11/03/18 06:18 General appearance: Present: no acute distress, well-nourished - EENT Eyes: Present: PERRL, EOM intact ENT: hearing intact, clear oral mucosa, dentition normal - Neck Neck: Present: supple, normal ROM - Respiratory Respiratory effort: normal Respiratory: bilateral: CTA - Cardiovascular Rhythm: regular Heart Sounds: Present: S1 & S2. Absent: gallop, rub - Extremities Extremities: no ischemia, No edema, Full ROM - Abdominal General gastrointestinal: soft, non-tender, non-distended, normal bowel sounds - Integumentary Integumentary: Present: clear, warm, dry - Neurologic Neurologic: CNII-XII intact, moves all extremities Results - Labs CBC & Chem 7: 11/03/18 05:31 11/03/18 05:31 Labs: Laboratory Last Values WBC 17.1 K/mm3 (4.5-11.0) H 11/03/18 05:31 RBC 4.24 M/mm3 (3.65-5.03) 11/03/18 05:31 Hgb 12.6 gm/dl (11.8-15.2) 11/03/18 05:31 Hct 38.7 % (35.5-45.6) 11/03/18 05:31 MCV 91 fl (84-94) 11/03/18 05:31 MCH 30 pg (28-32) 11/03/18 05:31 MCHC 33 % (32-34) 11/03/18 05:31 RDW 15.5 % (13.2-15.2) H 11/03/18 05:31 Plt Count 219 K/mm3 (140-440) 11/03/18 05:31 Lymph % (Auto) 6.2 % (13.4-35.0) L 11/01/18 12:22 [place] % (Auto) 8.4 % (0.0-7.3) H 11/01/18 12:22 Eos % (Auto) 0.7 % (0.0-4.3) 11/01/18 12:22 Baso % (Auto) 0.4 % (0.0-1.8) 11/01/18 12:22 Lymph # 0.8 K/mm3 (1.2-5.4) L 11/01/18 12:22 [place] # 1.2 K/mm3 (0.0-0.8) H 11/01/18 12:22 Eos # 0.1 K/mm3 (0.0-0.4) 11/01/18 12:22 Baso # 0.1 K/mm3 (0.0-0.1) 11/01/18 12:22 Seg Neutrophils % [place] 11/03/18 05:31 Seg Neutrophils # 11.6 K/mm3 (1.8-7.7) H 11/01/18 12:22 PT 14.5 Sec. (12.2-14.9) 11/01/18 12:22 INR 1.09 (0.87-1.13) 11/01/18 12:22 APTT 24.8 Sec. (24.2-36.6) 11/01/18 12:22 Sodium 137 mmol/L (137-145) 11/03/18 05:31 Potassium 4.8 mmol/L (3.6-5.0) 11/03/18 05:31 Chloride 102.5 mmol/L (98-107) 11/03/18 05:31 Carbon Dioxide 23 mmol/L (22-30) 11/03/18 05:31 Anion Gap 16 mmol/L 11/03/18 05:31 BUN 18 mg/dL (9-20) 11/03/18 05:31 Creatinine 0.9 mg/dL (0.8-1.5) 11/03/18 05:31 Estimated GFR > 60 ml/min 11/03/18 05:31 BUN/Creatinine Ratio 20 % 11/03/18 05:31 Glucose 174 mg/dL (75-100) H 11/03/18 05:31 POC Glucose 132 (70-105) H 11/03/18 08:10 Hemoglobin A1c 7.4 % (4-6) H 11/02/18 00:38 Lactic Acid 1.90 mmol/L (0.7-2.0) 11/01/18 12:22 Calcium 8.3 mg/dL (8.4-10.2) L 11/03/18 05:31 Magnesium 2.40 mg/dL (1.7-2.3) H 11/03/18 05:31 Total Bilirubin < 0.20 mg/dL (0.1-1.2) 11/03/18 05:31 Direct Bilirubin 0.2 mg/dL (0-0.2) 11/01/18 12:22 Indirect Bilirubin 0.6 mg/dL 11/01/18 12:22 AST 16 units/L (5-40) 11/03/18 05:31 ALT 27 units/L (7-56) 11/03/18 05:31 Alkaline Phosphatase 63 units/L (35-129) 11/03/18 05:31 Total Creatine Kinase 468 units/L (55-170) H 11/03/18 05:31 CK-MB (CK-2) 6.6 ng/mL (0.0-4.0) H 11/03/18 05:31 CK-MB (CK-2) Rel Index 1.4 (0-4) 11/03/18 05:31 Troponin T < 0.010 ng/mL (0.00-0.029) 11/03/18 05:31 NT-Pro-B Natriuret Pep 2203 pg/mL (0-900) H 11/01/18 12:22 Total Protein 6.0 g/dL (6.3-8.2) L 11/03/18 05:31 Albumin 3.6 g/dL (3.9-5) L 11/03/18 05:31 Albumin/Globulin Ratio 1.5 % 11/03/18 05:31 Urine Color Yellow (Yellow) 11/01/18 12:46 Urine Turbidity Clear (Clear) 11/01/18 12:46 Urine pH 5.0 (5.0-7.0) 11/01/18 12:46 Ur Specific [place] 1.060 (1.003-1.030) H 11/01/18 12:46 Urine Protein 100 mg/dl mg/dL (Negative) 11/01/18 12:46 Urine Glucose (UA) Neg mg/dL (Negative) 11/01/18 12:46 Urine Ketones Tr mg/dL (Negative) 11/01/18 12:46 Urine Blood Neg (Negative) 11/01/18 12:46 Urine Nitrite Neg (Negative) 11/01/18 12:46 Urine Bilirubin Neg (Negative) 11/01/18 12:46 Urine Urobilinogen < 2.0 mg/dL (<2.0) 11/01/18 12:46 Ur Leukocyte Esterase Neg (Negative) 11/01/18 12:46 Urine WBC (Auto) < 1.0 /HPF (0.0-6.0) 11/01/18 12:46 Urine RBC (Auto) 3.0 /HPF (0.0-6.0) 11/01/18 12:46 Blood Type O POSITIVE 11/01/18 12:22 Antibody Screen Negative 11/01/18 12:22
[2018-11-03 11:38] LABS: Total Cells Counted 100
[2018-11-03 11:39] LABS: Basophils % (Manual) 0 % (0.0-1.8); Eosinophils % (Manual) 0 % (0.0-4.3); Platelet Estimate Consistent w Auto; RBC Morphology Normal
--- NOTE | 2018-11-03 12:35 | Query-Infection ---
"Milady Garrett___Robin Date:__11/03/2018 Labor And Employment Paralegal/CDS:___Ute Phone#:__[phone] Exercise your independent professional judgment when responding to this query. Questions asked do not imply a particular answer is desired or expected. We greatly appreciate your clarification on this issue. Clinical Documentation States: 62 year old AAM presents with swelling of Left chin swelling for 2 days. Patient feels that it was precipitated by eating fish on Friday (10/30/18). Also developed L lower tooth pain. Acute sialoadenitis - Patient is on IV antibiotics, IV steroids Clinical findings show: (please check applicable parameters) AK (11/01): 107 RR (11/01): 24 WBC (11/01): 13.7 Infection, known /suspected, with some of the following indicators; Specify the infection: General parameters [ ] Fever (core temp >38.30C or 100.40F) [ ] Hypothermia (core temp <36C) [X ] Heart rate >90 bpm [X ] Tachypnea: >20 bpm or pCO2 < 32 mmHg [ ] Altered mental status [ ] Significant edema / +ve fluid balance (>20 ml/kg 24 h) [ ] Hyperglycemia (Bl. glucose >110 mg/dl) w/o diabetes Inflammatory parameters [X ] Leukocytosis (white blood cell count >12,000/l) [ ] Leukopenia (white blood cell count <4,000/l) [ ] Bandemia (immature WBC > 10%) [ ] Leucocyte Left Shift [ ] Plasma procalcitonin>2 SD above the normal value Hemodynamic and tissue perfusion parameters [ ] Arterial hypotension(SBP <90 mmHg, MAP <70 mmHg,or a SBP drop >40 mmHg in adults) [ ] Hyperlactatemia (>3 mmol/l) [ ] Anion Gap (> 11mEG/l) [ ] Decreased capillary refill or mottling Organ dysfunction parameters [ ] Arterial hypoxemia (PaO2/FIO2 <300) [ ] Creatinine increase =0.5 mg/dl [ ] Acute oliguria (urine output <0.5 ml | kg |h or 45 mM/l for at least 2 hrs) [ ] Coagulation abnormalities (INR >1.5 or activated partial thromboplastin time >60 s) [ ] Ileus (absent unruly wel sounds) [ ] Thrombocytopenia (platelet count <100,000/l) [ ] Hyperbilirubinemia (plasma total bilirubin >4 mg/dl) According to the clinical indications above, can Bacteremia be further specified? If so, please indicate below and in your Progress Notes and/ or Discharge Summary. Indicate if the condition was present on admission. PHYSICIAN RESPONSE: [x ] Sepsis [ ] Severe Sepsis [ ] Septic Shock [ ] Septicemia [ ] Sepsis now resolved [ ] SIRS due to non-infectious cause with organ dysfunction [ ] SIRS due to non-infectious cause without organ dysfunction [ ] Other: [ ] Comment/Explanation: Present on Admission: [x ] Yes (Y) [ ] Clinically undeterminable (W) [ ] No (N) [ ] Ruled Out Please also document response in your Progress Notes and/or Discharge Summary and indicate if the condition was present on admission Notes: SIRS/ SIRS WITH ORGAN DYSFUNCTION Systemic inflammatory response syndrome (SIRS) generally refers to the systemic response to trauma/drake or other insult such as Acute Myocardial Infarction, Acute Pancreatitis, and Major Surgery with symptoms including fever, tachycardia, tachypnea, and leukocytosis (1). BACTEREMIA Presence of viable bacteria in the circulating blood (2). This term is reserved for patients that do not manifest above SIRS response. SEPTICEMIA Generally refers to a systemic disease associated with the presence of pathological microorganisms or toxins in the blood, which can include bacteria, viruses, fungi or other organisms (1). SEPSIS Generally refers to SIRS due infection (1). SEVERE SEPSIS Generally refers to sepsis associated with acute organ dysfunction (1). SEPTIC SHOCK Generally refers to circulatory failure associated with severe sepsis (2), and defined as hypotension or hypoperfusion despite adequate fluid resuscitation (1 hour) (3). REFERENCES: 1. [place] [employer]/Society of Critical Care Medicine Consensus Conference. Definitions for sepsis and organ failure and guidelines for the use of innovative therapies in sepsis. Critical Care Med 1992;20:864 - 74. 2. Antelmo bonilla MM, Candido MP, Zac AGUILAR, Fernando E, Antwan D, Bartolome D, Aguilar J, Juliana SM, Robbin JL, Glenn G; International Sepsis Definitions Conference. 2001 SCCM/ESICM/ACCP/ATS/SIS International Sepsis Definitions Conference. Intensive Care Med. 2002;29(4):530-8. Epub 2002Jan 21. Review. PubMed PMID:[id number] 3. ICD-9-CM Official Guidelines for Coding and Reporting 4. Medscape Drugs, Diseases and Procedures references 5. [employer] Textbook of Internal Medicine. 18th Edition MTDD"
--- NOTE | 2018-11-03 13:17 | Consultation ---
History of Present Illness Consult date: 11/03/18 Requesting physician: DIXIE CHOPRA Consult reason: other (nsvt) History of present illness: The pt is a 62 YO male with a past medical history of nonobstructive CAD, HTN, HLP, mild LV dysfunction, PATRICE (newly diagnosed). He is followed in our office by Dr. Stuart. He presented with c/o swelling of left chin and tooth pain since Friday. He has been subsequently diagnosed with acute sialoadenitis. He was noted to have a 7 beat run NSVT on telemetry this AM and thus cardiology has been consulted. Pt denies any cardiac complaints. Echo done 11/2017 showed mod LVH, EF 45-50%, grade 2 diastolic dysfunction, LA se verely enlarged, RVSP 32mmHg. LHC done 03/2015 showed mild diffuse nonobstructive luminal irregularities, EF 40-45%. Lexiscan MPI stress test done 11/2017 was negative for scar or ischemia, EF 43%. Past History Past Medical History: CAD (nonobstructive ), hypertension, hyperlipidemia, other (PATRICE) Medications and Allergies Allergies Allergy/AdvReac Type Severity Reaction Status Date / Time No Known Allergies Allergy Verified 04/25/15 06:08 Home Medications Medication Instructions Recorded Confirmed Last Taken Type Losartan [Cozaar] 100 mg PO QDAY 10/31/16 11/01/18 10/31/18 09:00 History Furosemide [Lasix] 20 mg PO DAILY 11/01/18 11/01/18 10/31/18 09:00 History Metoprolol [Lopressor TAB] 50 mg PO BID 11/01/18 11/01/18 10/31/18 22:00 History Montelukast [Singulair] 10 units PO QHS 11/01/18 11/01/18 10/31/18 22:00 History Potassium Chloride [K-Dur] 10 meq PO QDAY 11/01/18 11/01/18 10/31/18 09:00 History hydrALAZINE [Apresoline TAB] 100 mg PO BID 11/01/18 11/01/18 10/31/18 22:00 History Active Meds: Active Medications Acetaminophen (Tylenol) 650 mg PO Q4H PRN PRN Reason: Pain MILD(1-3)/Fever >100.5/HUMPHREY Dextrose (D50w (25gm) Syringe) 50 ml IV PRN PRN PRN Reason: Hypoglycemia Famotidine (Pepcid) 20 mg IV BID [facility] Last Admin: 11/03/18 10:06 Dose: 20 mg Documented by: Furosemide (Lasix) 20 mg PO DAILY@0600 [facility] Last Admin: 11/03/18 06:07 Dose: 20 mg Documented by: Heparin Sodium (Porcine) (Heparin) 5,000 unit SUB-Q Q12HR [facility] Last Admin: 11/03/18 10:06 Dose: 5,000 unit Documented by: Hydralazine HCl (Apresoline) 100 mg PO BID [facility] Last Admin: 11/03/18 10:06 Dose: 100 mg Documented by: Hydromorphone HCl (Dilaudid) 0.5 mg IM Q4H PRN PRN Reason: Pain , Severe (7-10) Last Admin: 11/01/18 19:02 Dose: 0.5 mg Documented by: Ceftriaxone Sodium (Rocephin/Ns 2 Gm/100 Ml) 2 gm in 100 mls @ 200 mls/hr IV Q24HR [facility]; Protocol Last Admin: 11/03/18 10:07 Dose: 200 mls/hr Documented by: Sodium Chloride (Nacl 0.9% 1000 Ml) 1,000 mls @ 75 mls/hr IV DIRECT [facility] Last Admin: 11/02/18 01:01 Dose: 75 mls/hr Documented by: Vancomycin HCl 1,500 mg/ (Sodium Chloride) 530 mls @ 333.333 mls/hr IV Q12H [facility] Last Admin: 11/03/18 06:06 Dose: 333.333 mls/hr Documented by: Insulin Human Lispro (Humalog) 0 unit SUB-Q ACHS [facility]; Protocol Last Admin: 11/03/18 12:43 Dose: Not Given Documented by: Losartan Potassium (Cozaar) 100 mg PO QDAY [facility] Last Admin: 11/03/18 12:44 Dose: Not Given Documented by: Methylprednisolone Sodium Succinate (Solu-Medrol) 60 mg IV Q8H [facility] Last Admin: 11/03/18 10:20 Dose: 60 mg Documented by: Metoprolol Tartrate (Lopressor) 50 mg PO BID [facility] Last Admin: 11/03/18 10:04 Dose: 50 mg Documented by: Montelukast Sodium (Singulair) 10 mg PO QHS [facility] Last Admin: 11/02/18 23:04 Dose: 10 mg Documented by: Ondansetron HCl (Zofran) 4 mg IV Q8H PRN PRN Reason: Nausea And Vomiting Oxycodone/Acetaminophen (Percocet 5/325) 1 tab PO Q6H PRN PRN Reason: Pain, Moderate (4-6) Potassium Chloride (K-Dur) 10 meq PO QDAY [facility] Last Admin: 11/03/18 10:06 Dose: 10 meq Documented by: Sodium Chloride (Sodium Chloride Flush Syringe 10 Ml) 10 ml IV BID [facility] Last Admin: 11/03/18 10:08 Dose: 10 ml Documented by: Sodium Chloride (Sodium Chloride Flush Syringe 10 Ml) 10 ml IV PRN PRN PRN Reason: LINE FLUSH Review of Systems Constitutional: no weight loss, no weight gain, no fever, no chills, no sweats Ears, nose, mouth and throat: dental pain, swelling in mouth, pain front of ne ck, neck lump, no ear pain, no nose pain, no sinus pressure, no sinus pain Cardiovascular: high blood pressure, no chest pain, no orthopnea, no palpitations, no rapid/irregular heart beat, no edema, no syncope, no lightheadedness, no shortness of breath, no paroxysmal nocturnal dyspnea, no leg edema, no decreased exercise tolerance Respiratory: no cough, no shortness of breath, no congestion, no wheezing, no pain on inspiration Gastrointestinal: no abdominal pain, no nausea, no vomiting, no diarrhea, no constipation, no change in bowel habits Genitourinary Male: no dysuria, no hematuria, no flank pain, no discharge, no urinary frequency, no urinary hesitancy Musculoskeletal: neck pain (left chin swelling), no shooting arm pain, no arm numbness/tingling, no low back pain, no shooting leg pain, no leg numbness/tingling Integumentary: no rash, no pruritis, no redness, no sores, no wounds Neurological: no head injury, no paralysis, no weakness, no parathesias, no numbness, no tingling, no seizures, no syncope Psychiatric: no anxiety Endocrine: no cold intolerance, no heat intolerance Hematologic/Lymphatic: no easy bruising, no easy bleeding Allergic/Immunologic: no urticaria, no wheezing Physical Examination Vital Signs Temp Pulse Resp BP Pulse Ox 97.8 F 91 H 20 166/98 98 11/01/18 04:59 11/01/18 04:59 11/01/18 04:59 11/01/18 04:59 11/01/18 04:59 General appearance: no acute distress HEENT: Positive: PERRL, Normocephaly, Mucus Membranes Moist, Other (left neck swelling) Neck: Positive: neck supple, trachea midline Cardiac: Positive: Reg Rate and Rhythm, S1/S2 Lungs: Positive: clear to auscultation Neuro: Positive: Grossly Intact Abdomen: Positive: Soft. Negative: Tender Skin: Negative: Rash, Wound Musculoskeletal: No Pain Extremities: Absent: edema Results 11/03/18 05:31 11/03/18 05:31 Cardiac Enzymes 11/03/18 11/03/18 Range/Units 05:31 05:31 AST 16 (5-40) units/L CK-MB (CK-2) 6.6 H (0.0-4.0) ng/mL CBC 11/03/18 Range/Units 05:31 WBC 17.1 H (4.5-11.0) K/mm3 RBC 4.24 (3.65-5.03) M/mm3 Hgb 12.6 (11.8-15.2) gm/dl Hct 38.7 (35.5-45.6) % Plt Count 219 (140-440) K/mm3 Comprehensive Metabolic Panel 11/03/18 Range/Units 05:31 Sodium 137 (137-145) mmol/L Potassium 4.8 (3.6-5.0) mmol/L Chloride 102.5 (98-107) mmol/L Carbon Dioxide 23 (22-30) mmol/L BUN 18 (9-20) mg/dL Creatinine 0.9 (0.8-1.5) mg/dL Glucose 174 H (75-100) mg/dL Calcium 8.3 L (8.4-10.2) mg/dL AST 16 (5-40) units/L ALT 27 (7-56) units/L Alkaline Phosphatase 63 (35-129) units/L Total Protein 6.0 L (6.3-8.2) g/dL Albumin 3.6 L (3.9-5) g/dL - Imaging and Cardiology Echo: report reviewed (11/2017 showed mod LVH, EF 45-50%, grade 2 diastolic dysfunction, LA severely enlarged, RVSP 32mmHg. ) Cardiac cath: report reviewed (03/2015 showed mild diffuse nonobstructive luminal irregularities, EF 40-45%. ) EKG: report reviewed, image reviewed EKG interpretations - Telemetry EKG Rhythm: Sinus Rhythm - EKG Sinus rhythms and dysrhythmias: sinus rhythm Chamber hypertrophy or enlargement: left ventricular hypertro Assessment and Plan Pt noted to have 7 beat run NSVT this AM, pt asymptomatic. Serum K+ and Mg WNL. Currently stable cardiac status. No plans for additional cardiac w/u at this time. Cont home cardiac regimen. Pt may discharge home from cardiology standpoint. Recommend pt follow up in our office with Dr. Stuart within 1-2 weeks of hospital discharge ([phone]). The patient has been seen in conjunction with Dr. Paredes who agrees with the assessment and plan of care. - Patient Problems (1) Acute sialoadenitis Current Visit: Yes Status: Acute (2) NSVT (nonsustained ventricular tachycardia) Current Visit: Yes Status: Acute (3) LV dysfunction Current Visit: Yes Status: Chronic (4) Nonobstructive atherosclerosis of coronary artery Current Visit: Yes Status: Chronic (5) HTN (hypertension) Current Visit: Yes Status: Chronic Qualifiers: Hypertension type: essential hypertension Qualified Code(s): I10 - Essential (primary) hypertension (6) Hyperlipidemia Current Visit: Yes Status: Chronic
[2018-11-03] MEDS: NACL 0.9% 1000 ML 1,000 ML IV SCH (17:10)
[2018-11-03] MEDS: SINGULAIR PO SCH (21:42)
[2018-11-04] MEDS: SOLU-Medrol IV SCH ×2 (01:24→09:00)
[2018-11-04 06:10] VITALS: BP 136/95
[2018-11-04] MEDS: VANCOMYCIN 1,500 MG in NACL 0.9% 500 ML 500 ML IV SCH (06:53)
[2018-11-04] MEDS: LASIX PO SCH (06:53)
[2018-11-04] MEDS: NACL 0.9% 1000 ML 1,000 ML IV SCH (07:01)
[2018-11-04] MEDS: HumaLOG SUB-Q SCH ×2 (07:30→11:30)
--- NOTE | 2018-11-04 07:46 | Discharge Summary ---
Providers - Providers Date of Admission: 11/01/18 13:45 Date of discharge: 11/04/18 Attending physician: DIXIE CHOPRA 11/03/18 11:23 Consult to Physician [CONS] Routine Comment: Consulting Provider: MARTINA ROSS Physician Instructions: Reason For Exam: NSVT Primary care physician: INFRASTRUCTURE MANAGER Hospitalization Reason for admission: tooth pain Condition: Stable Hospital course: The pt is a 62 YO male with a past medical history of nonobstructive CAD, HTN, HLP, mild LV dysfunction, PATRICE (newly diagnosed) who presented with c/o swelling of left chin and tooth pain since Friday. He was subsequently diagnosed with acute sialoadenitis. Patient was treated with IV antibiotics and IV steroids. ENT saw the patient in consultation and recommended 48 hours IV antibiotics and discharge with clinidamycin, O/P f/U with EN. He was noted to have a 7 beat run NSVT on telemetry the AM of 11/03/18 and thus cardiology has been consulted. Pt denied any cardiac complaints. Echo done 11/2017 showed mod LVH, EF 45-50%, grade 2 diastolic dysfunction, LA severely enlarged, RVSP 32mmHg. LHC done 03/2015 showed mild diffuse nonobstructive luminal irregularities, EF 40-45%. Lexiscan MPI stress test done 11/2017 was negative for scar or ischemia, EF 43%. Cardiology recommended no further workup or follow-up as an outpatient. Dedicated discharge time 34 minutes. Disposition: - TO HOME OR SELFCARE Time spent for discharge: 34 - Discharge Diagnoses (1) Acute sialoadenitis Status: Acute (2) Cardiomyopathy Status: Acute (3) NSVT (nonsustained ventricular tachycardia) Status: Acute (4) HTN (hypertension) Status: Chronic Qualifiers: Hypertension type: essential hypertension Qualified Code(s): I10 - Essential (primary) hypertension (5) Hyperlipidemia Status: Chronic (6) Nonobstructive atherosclerosis of coronary artery Status: Chronic Core Measure Documentation - Palliative Care Palliative Care/ Comfort Measures: Not Applicable - Core Measures Any of the following diagnoses?: none Exam - Constitutional Vitals: Temp Pulse Resp BP Pulse Ox 97.6 F 80 18 136/95 94 11/04/18 05:05 11/04/18 05:05 11/04/18 05:05 11/04/18 05:05 11/04/18 05:05 General appearance: Present: no acute distress, well-nourished - EENT Eyes: Present: PERRL ENT: hearing intact, clear oral mucosa - Neck Neck: Present: supple, normal ROM - Respiratory Respiratory effort: normal Respiratory: bilateral: CTA - Cardiovascular Heart Sounds: Present: S1 & S2. Absent: rub, click - Extremities Extremities: pulses symmetrical, No edema Peripheral Pulses: within normal limits - Abdominal General gastrointestinal: Present: soft, non-tender, non-distended, normal bowel sounds Male genitourinary: Present: normal - Integumentary Integumentary: Present: clear, warm, dry - Musculoskeletal Musculoskeletal: gait normal, strength equal bilaterally - Psychiatric Psychiatric: appropriate mood/affect, intact judgment & insight - Neurologic Neurologic: CNII-XII intact, moves all extremities Plan Activity: no restrictions Weight Bearing Status: Full Weight Bearing Diet: low fat, low cholesterol, low salt Follow up with: PRIMARY CARE, [Primary Care Provider] - 3-5 Days JADE ROJAS MD [Staff Physician] - 7 Days SAL RED MD [Staff Physician] - 7 Days Prescriptions: Clindamycin [Clindamycin CAP] 600 mg PO Q8H #42 capsule hydrALAZINE [Apresoline TAB] 100 mg PO BID #60 tab Losartan [Cozaar] 100 mg PO QDAY #30 tablet Metoprolol [Lopressor TAB] 50 mg PO BID #60 tablet Montelukast [Singulair] 10 units PO QHS #30 tablet oxyCODONE /ACETAMINOPHEN [Percocet 5/325 mg] 1 tab PO Q6H PRN #12 tablet PRN Reason: Pain, Moderate (4-6)
[2018-11-04] MEDS: SODIUM CHLORIDE FLUSH SYRINGE 10 ML IV SCH (10:00)
[2018-11-04] MEDS: HEPARIN SUB-Q SCH (10:00)
[2018-11-04] MEDS: LOPRESSOR PO SCH (10:00)
[2018-11-04] MEDS: COZAAR PO SCH (10:00)
[2018-11-04] MEDS: ROCEPHIN/NS 2 GM/100 ML 2 GM/100 ML BAG IV SCH (10:00)
[2018-11-04] MEDS: PEPCID IV SCH (10:00)
[2018-11-04] MEDS: APRESOLINE PO SCH (10:00)
[2018-11-04] MEDS: K-DUR PO SCH (10:00)
--- NOTE | 2018-11-11 15:25 | Query- Heart Failure ---
Milady Garrett_Blanche Date:__11/11/2018 Heel Sprayer/CDS:___Ute/Víctor Phone#:__[phone] Exercise your independent professional judgment when responding to query. Questions asked do not imply a particular answer is desired or expected. We greatly appreciate your clarification on this issue. Clinical Documentation States: The pt is a 62 YO male with a past medical history of nonobstructive CAD, HTN, HLP, mild LV dysfunction, PATRICE (newly diagnosed) who presented with c/o swelling of left chin and tooth pain since Friday. Echo done 11/2017 showed mod LVH, EF 45-50%, grade 2 diastolic dysfunction, LA severely enlarged. The H&P note stated "(3) CHF (congestive heart failure) Current Visit: Yes Status: Chronic Qualifiers: Heart failure type: combined systolic and diastolic Plan to address problem: Not on any diuretics." Clinical Findings Show: BNP:__2203 , Treatment (Medications):____PO Lasix If possible, Please Clarify if you mean: Acuity: [ ] Acute [ x] Acute on Chronic [ ] Chronic Type: [ ] Systolic Heart Failure [ ] Diastolic Heart Failure [ x] Combined Heart Failure [ ] Other: Present on Admission: [x ] Yes (Y) [ ] Clinically undeterminable (W) [ ] No (N) Please also document response in your Progress Notes and/or Discharge Summary and indicate if the condition was present on admission. ETHAN
== END 2018-11-04 11:15 | disposition home or self-care (01) | DRG 871 ==
LOC: ED 04:55 → 3A 13:45
PROVIDERS: ADMIT Internal Medicine; ATTEND Hospitalist
DX: A41.9 Sepsis, unspecified organism (principal); I50.43 Acute on chronic combined systolic (congestive) and diastolic (congestive) heart failure; I42.9 Cardiomyopathy, unspecified; I47.1 Supraventricular tachycardia; E87.1 Hypo-osmolality and hyponatremia; I50.42 Chronic combined systolic (congestive) and diastolic (congestive) heart failure; K11.21 Acute sialoadenitis; I25.10 Atherosclerotic heart disease of native coronary artery without angina pectoris; G47.33 Obstructive sleep apnea (adult) (pediatric); E78.5 Hyperlipidemia, unspecified; I11.0 Hypertensive heart disease with heart failure; K21.9 Gastro-esophageal reflux disease without esophagitis; R13.12 Dysphagia, oropharyngeal phase; Z79.899 Other long term (current) drug therapy; I50.9 Heart failure, unspecified
CPT/HCPCS: 36415; 70491; 71045; 76536; 80048; 80053; 80076; 81001; 82140; 82550; 82553; 82962; 83036; 83735; 83880; 84484; 85007; 85025; 85610; 85730; 86850; 86900; 86901; 87040; 93005; 93010; 96365; 96367; 96372; G0378; J0360; J0696; J1100; J1170; J1644; J1815; J2930; J3370; J7030; J7040; Q9967

== ENCOUNTER 2018-12-15 04:14 | Inpatient (IN) | payer OTHER ==
--- NOTE | 2018-12-15 05:05 | XRay Report ---
FINAL REPORT EXAM: XR CHEST ROUTINE 2V HISTORY: Coughing/spitting up blood/SOB TECHNIQUE: PA and lateral views the chest were submitted. Comparison is made to the study of . FINDINGS: The heart size is at the upper limits normal. There is patchy airspace disease in the anterior segmen t of the right upper lobe compatible with pneumonia. The lungs are not overtly congested. Pleural flu id is not seen. The skeletal structures appear well maintained. IMPRESSION: Patchy airspace disease in the anterior segment of the right upper lobe compatible with pneumonia in the appropriate clinical setting.
[2018-12-15 05:30] LABS: Hematocrit 41.9 % (35.5-45.6); Hemoglobin 13.7 gm/dl (11.8-15.2); Mean Corpuscular HGB Conc 33 % (32-34); Mean Corpuscular Volume 90 fl (84-94); Platelet Count 142 K/mm3 (140-440); Red Blood Count 4.65 M/mm3 (3.65-5.03); Red Cell Distribution Width 14.6 % (13.2-15.2)
[2018-12-15 05:48] LABS: Calcium 8.9 mg/dL (8.4-10.2)
[2018-12-15 06:21] LABS: INR 1.13 (0.87-1.13)
[2018-12-15 06:22] LABS: Partial Thromboplastin Time 20.8 Sec. (24.2-36.6)
[2018-12-15] MEDS ORDERED: LEVAQUIN 750MG/150ML 750 MG/150 ML BAG IV ONE ×2 (09:10→10:21)
[2018-12-15] MEDS ORDERED: ROCEPHIN/NS 1 GM/50 ML 1 GM/50 ML BAG IV ONE ×2 (09:10→10:20)
--- NOTE | 2018-12-15 09:17 | Emergency Department Report ---
ED General Adult HPI - General Chief complaint: Dyspnea/Respdistress Stated complaint: DIZZINESS/HUMPHREY/DIARREAH/LEG HIP PAIN Time Seen by Provider: 12/15/18 08:41 Source: patient Mode of arrival: Ambulatory Limitations: No Limitations - History of Present Illness Initial comments: 63-year-old male has been sick since Friday. His complains that has been weak and dizzy since then. By Friday he developed a cough and hemoptysis. He has felt like he's had fever and chills. He is also complaining of a variety of joint and muscle aches. He has long-standing right hip pain which is not not acute. 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 He denies sick contacts. He denies ever having a TB skin test. He denies recent weight loss. -: Gradual, days(s) Severity scale (0 -10): 5 Quality: aching (diffuse aching and right hip pain which is chronic) Consistency: intermittent Improves with: none Worsens with: none Associated Symptoms: cough, fever/chills Treatments Prior to Arrival: none - Related Data Home Medications Medication Instructions Recorded Confirmed Last Taken Furosemide [Lasix] 20 mg PO DAILY 11/01/18 11/01/18 10/31/18 09:00 Potassium Chloride [K-Dur] 10 meq PO QDAY 11/01/18 11/01/18 10/31/18 09:00 Previous Rx's Medication Instructions Recorded Last Taken Type Clindamycin [Clindamycin CAP] 600 mg PO Q8H #42 capsule 11/04/18 Unknown Rx Losartan [Cozaar] 100 mg PO QDAY #30 tablet 11/04/18 Unknown Rx Metoprolol [Lopressor TAB] 50 mg PO BID #60 tablet 11/04/18 Unknown Rx Montelukast [Singulair] 10 units PO QHS #30 tablet 11/04/18 Unknown Rx hydrALAZINE [Apresoline TAB] 100 mg PO BID #60 tab 11/04/18 Unknown Rx oxyCODONE /ACETAMINOPHEN [Percocet 1 tab PO Q6H PRN #12 tablet 11/04/18 Unknown Rx 5/325 mg] Allergies Allergy/AdvReac Type Severity Reaction Status Date / Time No Known Allergies Allergy Verified 12/15/18 08:14 ED Review of Systems ROS: Stated complaint: DIZZINESS/HUMPHREY/DIARREAH/LEG HIP PAIN Other details as noted in HPI Constitutional: denies: chills, fever Eyes: denies: eye pain, eye discharge, vision change ENT: denies: ear pain, throat pain Respiratory: cough. denies: shortness of breath, wheezing Cardiovascular: denies: chest pain, palpitations Endocrine: no symptoms reported Gastrointestinal: denies: abdominal pain, nausea, diarrhea Genitourinary: denies: urgency, dysuria Musculoskeletal: denies: back pain, joint swelling, arthralgia Skin: denies: rash, lesions Neurological: denies: headache, weakness, paresthesias Psychiatric: denies: anxiety, depression Hematological/Lymphatic: denies: easy bleeding, easy bruising ED Past Medical Hx - Past Medical History Previous Medical History?: Yes Hx Hypertension: Yes Hx Congestive Heart Failure: Yes Hx GERD: Yes Hx Arthritis: No Hx COPD: Yes Additional medical history: sleep apnea - Surgical History Additional Surgical History: Small intestines (parial) 2016 - Social History Smoking Status: Former Smoker Substance Use Type: None - Medications Home Medications: Home Medications Medication Instructions Recorded Confirmed Last Taken Type Furosemide [Lasix] 20 mg PO DAILY 11/01/18 11/01/18 10/31/18 09:00 History Potassium Chloride [K-Dur] 10 meq PO QDAY 11/01/18 11/01/18 10/31/18 09:00 History Clindamycin [Clindamycin CAP] 600 mg PO Q8H #42 capsule 11/04/18 Unknown Rx Losartan [Cozaar] 100 mg PO QDAY #30 tablet 11/04/18 Unknown Rx Metoprolol [Lopressor TAB] 50 mg PO BID #60 tablet 11/04/18 Unknown Rx Montelukast [Singulair] 10 units PO QHS #30 tablet 11/04/18 Unknown Rx hydrALAZINE [Apresoline TAB] 100 mg PO BID #60 tab 11/04/18 Unknown Rx oxyCODONE /ACETAMINOPHEN [Percocet 1 tab PO Q6H PRN #12 tablet 11/04/18 Unknown Rx 5/325 mg] ED Physical Exam - General Limitations: No Limitations General appearance: alert, in no apparent distress - Head Head exam: Present: atraumatic, normocephalic - Eye Eye exam: Present: normal appearance. Absent: scleral icterus - ENT ENT exam: Present: mucous membranes moist, other (largely edentulous) - Neck Neck exam: Present: normal inspection. Absent: tenderness, meningismus - Respiratory Respiratory exam: Present: normal lung sounds bilaterally. Absent: respiratory distress - Cardiovascular Cardiovascular Exam: Present: regular rate, normal rhythm. Absent: systolic murmur, diastolic murmur, rubs, gallop - GI/Abdominal GI/Abdominal exam: Present: soft, normal bowel sounds. Absent: distended, tend erness, guarding, rebound, rigid - Rectal Rectal exam: Present: deferred - Extremities Exam Extremities exam: Present: normal inspection, normal capillary refill. Absent: pedal edema, joint swelling, calf tenderness - Back Exam Back exam: Present: normal inspection. Absent: CVA tenderness (R), CVA tenderness (L) - Neurological Exam Neurological exam: Present: alert, oriented X3, CN II-XII intact. Absent: motor sensory deficit - Psychiatric Psychiatric exam: Present: normal affect, normal mood - Skin Skin exam: Present: warm, dry, intact, normal color. Absent: rash ED Course Vital Signs 12/15/18 04:43 Temperature 99.7 F H Pulse Rate 83 Respiratory 18 Rate Blood Pressure 135/78 [Right] O2 Sat by Pulse 94 Oximetry - Reevaluation(s) Reevaluation #1: Patient has a right upper lobe pneumonia. TB cannot be excluded. There is reasonable pretest probability. The patient is placed in respiratory isolation. A TB workup is ordered. Discussed with hospitalist. Patient is admitted further care and evaluation. In addition patient has a very firm and abnormal left submandibular node. Further workup is indicated for that. I additionally ordered a x-ray of his right hip for chronic right hip pain. 12/15/18 09:19 ED Medical Decision Making - Lab Data Result diagrams: 12/15/18 05:19 12/15/18 05:19 Laboratory Results - last 24 hr 12/15/18 12/15/18 12/15/18 05:19 05:19 05:19 WBC 5.7 RBC 4.65 Hgb 13.7 Hct 41.9 MCV 90 MCH 30 MCHC 33 RDW 14.6 Plt Count 142 PT 15.2 H INR 1.13 APTT 20.8 L Sodium 138 Potassium 4.3 Chloride 99.8 Carbon Dioxide 26 Anion Gap 17 BUN 15 Creatinine 1.5 Estimated GFR 57 BUN/Creatinine Ratio 10 Glucose 108 H Calcium 8.9 NT-Pro-B Natriuret Pep 5788 H Critical care attestation.: If time is entered above; I have spent that time in minutes in the direct care of this critically ill patient, excluding procedure time. ED Disposition Clinical Impression: Hemoptysis, Lymphadenopathy of head and neck, Right hip pain Right upper lobe pneumonia Qualifiers: Pneumonia type: due to unspecified organism Qualified Code(s): J18.1 - Lobar pn eumonia, unspecified organism Disposition: OP ADMIT IP TO THIS HOSP Is pt being admited?: Yes Does the pt Need Aspirin: Yes Condition: Stable Instructions: Bacterial Pneumonia (ED) Referrals: TRINIDAD YATES MD [Primary Care Provider] - 3-5 Days Time of Disposition: 09:25
[2018-12-15] MEDS ORDERED: BABY ASPIRIN PO ONE (09:26)
[2018-12-15 09:39] LABS: INR 1.1 (0.87-1.13); Partial Thromboplastin Time 34.3 Sec. (24.2-36.6)
[2018-12-15 09:52] LABS: Alanine Aminotransferase 29 units/L (7-56)
[2018-12-15 09:53] LABS: Bilirubin,Direct < 0.2 mg/dL (0-0.2)
--- NOTE | 2018-12-15 10:01 | XRay Report ---
RIGHT HIP, 2 views: History: Right hip pain. Findings: Mild osteoarthritic changes are identified. No evidence for fracture, dislocation or osteonecrosis. The pelvic bones are intact. Normal soft tissues. IMPRESSION: Early osteoarthritic changes.
[2018-12-15 10:03] LABS: LDL Cholesterol,Direct 123 mg/dL (50-130)
[2018-12-15 10:18] LABS: Chol/HDL Ratio 3.14 %; HDL Cholesterol 63 mg/dL (40-59)
[2018-12-15] MEDS ORDERED: BABY ASPIRIN ONE (10:24)
[2018-12-15 10:54] LABS: Bacteria,Urine 1+ /HPF (Negative); Bilirubin,Urine NEG (Negative); Blood,Urine NEG (Negative); Color,Urine Amber (Yellow); Mucus,Urine FEW /HPF; RBC,Urine < 1.0 /HPF (0.0-6.0); Urobilinogen,Urine < 2.0 mg/dL (<2.0)
[2018-12-15 10:55] LABS: Protein,Urine >2000 mg dL mg/dL (Negative)
--- NOTE | 2018-12-15 17:42 | History and Physical Report ---
History of Present Illness Date of examination: 12/15/18 Date of admission: 12/15/18 09:26 Chief complaint: Coughing off blood History of present illness: Patient is a 63 year old -[place] male with history of COPD and CHF who presented to the ED on account of 2 days history of hemoptysis. He has associated chills without fever and lightheadedness. He denies chest pain, shortness of breath, palpitation, leg swelling, orthopnea or PND. No headaches, nausea, vomiting, syncope or loss of consciousness. He denies weight loss. No history of ill-contact or recent travel. Past History Past Medical History: COPD, hypertension, other (PATRICE, CHF) Past Surgical History: Other (colon resection) Social history: smoking (ex-smoker. Quit smoking cigarrette 8 months ago, but smoked for more than 40 years.), other (he denies alcohol or illicit drug use) Family history: other (reviewed and noncontributory) Medications and Allergies Allergies Allergy/AdvReac Type Severity Reaction Status Date / Time No Known Allergies Allergy Verified 12/15/18 08:14 Home Medications Medication Instructions Recorded Confirmed Last Taken Type Furosemide [Lasix] 20 mg PO DAILY 11/01/18 12/15/18 10/31/18 09:00 History Losartan [Cozaar] 100 mg PO QDAY #30 tablet 11/04/18 12/15/18 Unknown Rx hydrALAZINE [Apresoline TAB] 100 mg PO BID #60 tab 11/04/18 12/15/18 Unknown Rx Cetirizine HCl [Allergy] 10 mg PO DAILY 12/15/18 12/15/18 Unknown History Fluticasone [Flonase] 1 spray NS QDAY 12/15/18 12/15/18 Unknown History Metoprolol [Lopressor TAB] 50 mg PO BIDWM 12/15/18 12/15/18 Unknown History Potassium Chloride [K-Tab ER] 10 meq PO QDAY 12/15/18 12/15/18 Unknown History Simvastatin [Zocor] 40 mg PO QPM 12/15/18 12/15/18 Unknown History Active Meds: Active Medications Albuterol/Ipratropium (Duoneb *Not For Prn Use*) 1 ampul IH Q4HRT [facility] Fluticasone Propionate (Flonase) 50 mcg NS QDAY [facility] Guaifenesin (Mucinex Er) 600 mg PO BID [facility] Hydralazine HCl (Apresoline) 100 mg PO BID [facility] Levofloxacin/Dextrose (Levaquin 750mg/150ml) 750 mg in 150 mls @ 100 mls/hr IV Q24HR [facility]; Protocol Loratadine (Claritin) 10 mg PO DAILY [facility] Losartan Potassium (Cozaar) 100 mg PO QDAY [facility] Metoprolol Tartrate (Lopressor) 50 mg PO BIDDIAB [facility] Pneumococcal Polyvalent Vaccine (Pneumovax 23) 0.5 ml IM .ONCE ONE Stop: 12/16/18 12:01 Potassium Chloride (K-Dur) 10 meq PO QDAY [facility] Pravastatin Sodium (Pravachol) 80 mg PO QHS [facility] Review of Systems All systems: negative (except as documented in the HPI, all other systems were reviewed and negative) Exam - Constitutional Vitals: Temp Pulse Resp BP Pulse Ox 98.4 F 70 20 132/85 100 12/15/18 11:17 12/15/18 10:40 12/15/18 11:17 12/15/18 11:17 12/15/18 10:40 General appearance: Present: no acute distress, obese - EENT Eyes: Present: PERRL, EOM intact ENT: hearing intact, clear oral mucosa - Neck Neck: Present: supple, normal ROM - Respiratory Respiratory effort: normal Respiratory: bilateral: CTA - Cardiovascular Rhythm: regular Heart Sounds: Present: S1 & S2 - Extremities Extremities: No edema Peripheral Pulses: within normal limits - Abdominal General gastrointestinal: Present: soft, non-tender, non-distended, normal bowel sounds Male genitourinary: Present: deferred - Rectal Rectal Exam: deferred - Integumentary Integumentary: Present: clear, warm - Musculoskeletal Musculoskeletal: strength equal bilaterally - Psychiatric Psychiatric: appropriate mood/affect - Neurologic Neurologic: CNII-XII intact Results - Labs CBC & Chem 7: 12/15/18 05:19 12/15/18 05:19 Labs: Laboratory Last Values WBC 5.7 K/mm3 (4.5-11.0) 12/15/18 05:19 RBC 4.65 M/mm3 (3.65-5.03) 12/15/18 05:19 Hgb 13.7 gm/dl (11.8-15.2) 12/15/18 05:19 Hct 41.9 % (35.5-45.6) 12/15/18 05:19 MCV 90 fl (84-94) 12/15/18 05:19 MCH 30 pg (28-32) 12/15/18 05:19 MCHC 33 % (32-34) 12/15/18 05:19 RDW 14.6 % (13.2-15.2) 12/15/18 05:19 Plt Count 142 K/mm3 (140-440) 12/15/18 05:19 PT 14.9 Sec. (12.2-14.9) 12/15/18 09:11 INR 1.10 (0.87-1.13) 12/15/18 09:11 APTT 34.3 Sec. (24.2-36.6) 12/15/18 09:11 Sodium 138 mmol/L (137-145) 12/15/18 05:19 Potassium 4.3 mmol/L (3.6-5.0) 12/15/18 05:19 Chloride 99.8 mmol/L (98-107) 12/15/18 05:19 Carbon Dioxide 26 mmol/L (22-30) 12/15/18 05:19 Anion Gap 17 mmol/L 12/15/18 05:19 BUN 15 mg/dL (9-20) 12/15/18 05:19 Creatinine 1.5 mg/dL (0.8-1.5) 12/15/18 05:19 Estimated GFR 57 ml/min 12/15/18 05:19 BUN/Creatinine Ratio 10 % 12/15/18 05:19 Glucose 108 mg/dL (75-100) H 12/15/18 05:19 Lactic Acid 1.50 mmol/L (0.7-2.0) 12/15/18 09:11 Calcium 8.9 mg/dL (8.4-10.2) 12/15/18 05:19 Magnesium 2.00 mg/dL (1.7-2.3) 12/15/18 09:11 Total Bilirubin 0.40 mg/dL (0.1-1.2) 12/15/18 09:11 Direct Bilirubin < 0.2 mg/dL (0-0.2) 12/15/18 09:11 Indirect Bilirubin 0.2 mg/dL 12/15/18 09:11 AST 35 units/L (5-40) 12/15/18 09:11 ALT 29 units/L (7-56) 12/15/18 09:11 Alkaline Phosphatase 47 units/L (35-129) 12/15/18 09:11 Troponin T 0.032 ng/mL (0.00-0.029) H 12/15/18 09:11 NT-Pro-B Natriuret Pep 4473 pg/mL (0-900) H 12/15/18 09:11 Total Protein 7.2 g/dL (6.3-8.2) 12/15/18 09:11 Albumin 4.0 g/dL (3.9-5) 12/15/18 09:11 Albumin/Globulin Ratio 1.3 % 12/15/18 09:11 Triglycerides 99 mg/dL (2-149) 12/15/18 09:11 Cholesterol 198 mg/dL (50-199) 12/15/18 09:11 LDL Cholesterol Direct 123 mg/dL (50-130) 12/15/18 09:11 HDL Cholesterol 63 mg/dL (40-59) H 12/15/18 09:11 Cholesterol/HDL Ratio 3.14 % 12/15/18 09:11 Urine Color Alla (Yellow) 12/15/18 10:36 Urine Turbidity Clear (Clear) 12/15/18 10:36 Urine pH 5.0 (5.0-7.0) 12/15/18 10:36 Ur Specific [place] 1.028 (1.003-1.030) 12/15/18 10:36 Urine Protein >2000 mg dl mg/dL (Negative) 12/15/18 10:36 Urine Glucose (UA) Neg mg/dL (Negative) 12/15/18 10:36 Urine Ketones Tr mg/dL (Negative) 12/15/18 10:36 Urine Blood Neg (Negative) 12/15/18 10:36 Urine Nitrite Neg (Negative) 12/15/18 10:36 Urine Bilirubin Neg (Negative) 12/15/18 10:36 Urine Urobilinogen < 2.0 mg/dL (<2.0) 12/15/18 10:36 Ur Leukocyte Esterase Neg (Negative) 12/15/18 10:36 Urine WBC (Auto) 1.0 /HPF (0.0-6.0) 12/15/18 10:36 Urine RBC (Auto) < 1.0 /HPF (0.0-6.0) 12/15/18 10:36 U Epithel Cells (Auto) < 1.0 /HPF (0-13.0) 12/15/18 10:36 Urine Bacteria (Auto) 1+ /HPF (Negative) 12/15/18 10:36 Urine Mucus Few /HPF 12/15/18 10:36 - Imaging and Cardiology Chest x-ray: image reviewed Assessment and Plan Assessment and plan: Pneumonia (CAP) -Continue IV antibiotic. -Chest x-ray positive for right upper lobe infiltrate -Blood and sputum cultures pending. Hemoptysis -On airborne precautions -sputum for AFB pending -ID consulted Elevated troponin -Probably secondary to demand ischemia due to the infection -We'll continue serial troponin level monitoring -We'll order echocardiogram History of CHF -EF unknown -We'll place patient on IV Lasix due to the elevated BNP -We will do echocardiogram RT hip pain -x-ray right hip showed osteoarthritic changes Hypertension -Controlled -We'll resume home meds Hyperlipidemia -On statin Obstructive sleep apnea -On CPAP at night COPD -No acute exacerbation -on PRN DuoNeb DVT prophylaxis with Lovenox Disposition: Pt admitted on inpatient status, discharge will depend on clinical course Time spent: 38 minutes
[2018-12-15] MEDS ORDERED: NON-FORMULARY (Simvastatin [Zocor] 40 MG) PO SCH (18:00)
[2018-12-15] MEDS: LOPRESSOR PO SCH (19:11)
[2018-12-15] MEDS: LASIX IV SCH (19:11)
[2018-12-15] MEDS ORDERED: DUONEB *Not for PRN Use IH SCH (20:00)
[2018-12-15] MEDS: PRAVACHOL PO SCH (21:53)
[2018-12-15] MEDS: APRESOLINE PO SCH (21:53)
[2018-12-15] MEDS: MUCINEX ER PO SCH (21:53)
[2018-12-15] MEDS ORDERED: PERCOCET 5/325 PO PRN (22:52)
[2018-12-16 01:26] LABS: BUN/Creatinine Ratio 15; Blood Urea Nitrogen 19 mg/dL (9-20); Calcium 8.4 mg/dL (8.4-10.2); Hemolysis Index 36
[2018-12-16 06:28] LABS: Basophils % (Auto) 0.5 % (0.0-1.8); Eosinophils % (Auto) 0.1 % (0.0-4.3); Hematocrit 42.2 % (35.5-45.6); Hemoglobin 13.9 gm/dl (11.8-15.2); Lymphocytes # (Auto) 0.7 K/mm3 (1.2-5.4); Lymphocytes % (Auto) 17.2 % (13.4-35.0); Mean Corpuscular HGB Conc 33 % (32-34); Mean Corpuscular Volume 89 fl (84-94); Monocytes # (Auto) 0.4 K/mm3 (0.0-0.8); Monocytes % (Auto) 11.1 % (0.0-7.3); Platelet Count 140 K/mm3 (140-440); Red Blood Count 4.72 M/mm3 (3.65-5.03); Red Cell Distribution Width 14.4 % (13.2-15.2)
[2018-12-16] MEDS: LOPRESSOR PO SCH ×2 (08:00→17:14)
[2018-12-16] MEDS: DUONEB *Not for PRN Use IH SCH ×3 (09:19→20:38)
[2018-12-16] MEDS: FLONASE NS SCH (09:42)
[2018-12-16] MEDS: LASIX IV SCH (09:43)
[2018-12-16] MEDS: K-DUR PO SCH (09:44)
[2018-12-16] MEDS: MUCINEX ER PO SCH ×2 (09:44→23:02)
[2018-12-16] MEDS: CLARITIN PO SCH (09:44)
[2018-12-16] MEDS: APRESOLINE PO SCH (09:49)
[2018-12-16] MEDS ORDERED: [UNRECOGNIZED DRUG - REMARK] PO SCH (10:00)
[2018-12-16] MEDS ORDERED: NON-FORMULARY (Potassium Chloride [K-Tab Er] 10 MEQ) PO SCH (10:00)
[2018-12-16] MEDS ORDERED: NON-FORMULARY (Losartan [Cozaar] 100 MG) PO SCH (10:00)
[2018-12-16] MEDS ORDERED: COZAAR PO SCH (10:00)
[2018-12-16] MEDS ORDERED: LEVAQUIN 750MG/150ML 750 MG/150 ML BAG IV SCH (10:00)
[2018-12-16] MEDS ORDERED: LOPRESSOR PO SCH (10:11)
[2018-12-16] MEDS ORDERED: ZOFRAN IV PRN (11:10)
--- NOTE | 2018-12-16 11:22 | Progress Note ---
Assessment and Plan Assessment and plan: Pneumonia (CAP) -Continue IV antibiotic. -Chest x-ray positive for right upper lobe infiltrate -Blood cultures pending. -Sputum culture contaminated, will repeat Hemoptysis -On airborne precautions -sputum for AFB and HIV tests pending -ID consulted Elevated troponin -Probably secondary to demand ischemia due to the infection -serial troponin levels stable and no acute chest pain -echocardiogram pending History of CHF, EF unknown -Asymptomatic -on IV Lasix due to the elevated BNP -echocardiogram pending RT hip pain -x-ray right hip showed osteoarthritic changes, no fracture Hypertension -Controlled Hyperlipidemia -On statin Obstructive sleep apnea -On CPAP at night COPD -No acute exacerbation -on PRN DuoNeb Obesity with BMI of 33.2 -Lifestyle modification recommended DVT prophylaxis with SCD due to hemoptysis Disposition: For discharge when clinically stable History Interval history: Patient vomited this a.m x1, he continues to have hemoptysis Hospitalist Physical - Constitutional Vitals: Temp Pulse Resp BP Pulse Ox 97.6 F 88 20 117/77 95 12/16/18 05:12 12/16/18 09:50 12/16/18 05:12 12/16/18 09:50 12/16/18 05:12 General appearance: Present: no acute distress, obese - EENT Eyes: Present: PERRL, EOM intact ENT: hearing intact, clear oral mucosa - Neck Neck: Present: supple - Respiratory Respiratory effort: normal Respiratory: bilateral: CTA - Cardiovascular Rhythm: regular Heart Sounds: Present: S1 & S2 - Extremities Extremities: No edema - Abdominal General gastrointestinal: soft, non-tender, non-distended, normal bowel sounds - Neurologic Neurologic: CNII-XII intact Results - Labs CBC & Chem 7: 12/16/18 06:05 12/16/18 00:25 Labs: Laboratory Last Values WBC 3.9 K/mm3 (4.5-11.0) L 12/16/18 06:05 RBC 4.72 M/mm3 (3.65-5.03) 12/16/18 06:05 Hgb 13.9 gm/dl (11.8-15.2) 12/16/18 06:05 Hct 42.2 % (35.5-45.6) 12/16/18 06:05 MCV 89 fl (84-94) 12/16/18 06:05 MCH 29 pg (28-32) 12/16/18 06:05 MCHC 33 % (32-34) 12/16/18 06:05 RDW 14.4 % (13.2-15.2) 12/16/18 06:05 Plt Count 140 K/mm3 (140-440) 12/16/18 06:05 Lymph % (Auto) 17.2 % (13.4-35.0) 12/16/18 06:05 [place] % (Auto) 11.1 % (0.0-7.3) H 12/16/18 06:05 Eos % (Auto) 0.1 % (0.0-4.3) 12/16/18 06:05 Baso % (Auto) 0.5 % (0.0-1.8) 12/16/18 06:05 Lymph # 0.7 K/mm3 (1.2-5.4) L 12/16/18 06:05 [place] # 0.4 K/mm3 (0.0-0.8) 12/16/18 06:05 Eos # 0.0 K/mm3 (0.0-0.4) 12/16/18 06:05 Baso # 0.0 K/mm3 (0.0-0.1) 12/16/18 06:05 Seg Neutrophils % 71.1 % (40.0-70.0) H 12/16/18 06:05 Seg Neutrophils # 2.8 K/mm3 (1.8-7.7) 12/16/18 06:05 PT 14.9 Sec. (12.2-14.9) 12/15/18 09:11 INR 1.10 (0.87-1.13) 12/15/18 09:11 APTT 34.3 Sec. (24.2-36.6) 12/15/18 09:11 Sodium 136 mmol/L (137-145) L 12/16/18 00:25 Potassium 3.8 mmol/L (3.6-5.0) 12/16/18 00:25 Chloride 97.5 mmol/L (98-107) L 12/16/18 00:25 Carbon Dioxide 27 mmol/L (22-30) 12/16/18 00:25 Anion Gap 15 mmol/L 12/16/18 00:25 BUN 19 mg/dL (9-20) 12/16/18 00:25 Creatinine 1.3 mg/dL (0.8-1.5) 12/16/18 00:25 Estimated GFR > 60 ml/min 12/16/18 00:25 BUN/Creatinine Ratio 15 % 12/16/18 00:25 Glucose 102 mg/dL (75-100) H 12/16/18 00:25 Lactic Acid 1.50 mmol/L (0.7-2.0) 12/15/18 09:11 Calcium 8.4 mg/dL (8.4-10.2) 12/16/18 00:25 Magnesium 2.00 mg/dL (1.7-2.3) 12/15/18 09:11 Total Bilirubin 0.40 mg/dL (0.1-1.2) 12/15/18 09:11 Direct Bilirubin < 0.2 mg/dL (0-0.2) 12/15/18 09:11 Indirect Bilirubin 0.2 mg/dL 12/15/18 09:11 AST 35 units/L (5-40) 12/15/18 09:11 ALT 29 units/L (7-56) 12/15/18 09:11 Alkaline Phosphatase 47 units/L (35-129) 12/15/18 09:11 Troponin T 0.046 ng/mL (0.00-0.029) H D 12/15/18 21:24 NT-Pro-B Natriuret Pep 4473 pg/mL (0-900) H 12/15/18 09:11 Total Protein 7.2 g/dL (6.3-8.2) 12/15/18 09:11 Albumin 4.0 g/dL (3.9-5) 12/15/18 09:11 Albumin/Globulin Ratio 1.3 % 12/15/18 09:11 Triglycerides 99 mg/dL (2-149) 12/15/18 09:11 Cholesterol 198 mg/dL (50-199) 12/15/18 09:11 LDL Cholesterol Direct 123 mg/dL (50-130) 12/15/18 09:11 HDL Cholesterol 63 mg/dL (40-59) H 12/15/18 09:11 Cholesterol/HDL Ratio 3.14 % 12/15/18 09:11 Urine Color Alla (Yellow) 12/15/18 10:36 Urine Turbidity Clear (Clear) 12/15/18 10:36 Urine pH 5.0 (5.0-7.0) 12/15/18 10:36 Ur Specific [place] 1.028 (1.003-1.030) 12/15/18 10:36 Urine Protein >2000 mg dl mg/dL (Negative) 12/15/18 10:36 Urine Glucose (UA) Neg mg/dL (Negative) 12/15/18 10:36 Urine Ketones Tr mg/dL (Negative) 12/15/18 10:36 Urine Blood Neg (Negative) 12/15/18 10:36 Urine Nitrite Neg (Negative) 12/15/18 10:36 Urine Bilirubin Neg (Negative) 12/15/18 10:36 Urine Urobilinogen < 2.0 mg/dL (<2.0) 12/15/18 10:36 Ur Leukocyte Esterase Neg (Negative) 12/15/18 10:36 Urine WBC (Auto) 1.0 /HPF (0.0-6.0) 12/15/18 10:36 Urine RBC (Auto) < 1.0 /HPF (0.0-6.0) 12/15/18 10:36 U Epithel Cells (Auto) < 1.0 /HPF (0-13.0) 12/15/18 10:36 Urine Bacteria (Auto) 1+ /HPF (Negative) 12/15/18 10:36 Urine Mucus Few /HPF 12/15/18 10:36
[2018-12-16] MEDS ORDERED: AFLURIA QUAD 2018-2019 SYRINGE IM ONE (12:00)
[2018-12-16] MEDS ORDERED: PNEUMOVAX 23 IM ONE (12:00)
--- NOTE | 2018-12-16 14:25 | Consultation ---
History of Present Illness - Reason for Consult Consult date: 12/16/18 Hemoptysis, ?TB Requesting physician: TALI REIS - History of Present Illness The patient is a 63-year-old male with history of COPD, hypertension, extensive smoking in the past, quit 8 months ago, prior colon resection presented to the emergency room yesterday with complaints of cough, shortness of breath and hemoptysis. This was only going on for 2 days prior. He also reports some fevers and chills associated with this. He denies any weight loss as such. He states his [id number] was recently hospitalized with an upper respiratory infection. Infectious diseases was consulted for additional recommendations. Patient reports having some diarrhea prior to admission which is now resolved. He is still coughing and bringing up bloody sputum. He was born and brought up in the [place]. Denies any international travel. Denies homelessness or incarceration. He does admit to smoking marijuana in the past and snorting cocaine in his youth. Quit smoking 8 months ago but was an extensive smoker prior to that. Denies any animal or poor exposure. Denies any known exposure to anyone with tuberculosis. Has never been tested for TB in the past. 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 Review of Systems: General: fever fevers, chills no rigors HEENT: no new visual disturbance Respiratory: + for cough, sputum, hemoptysis and shortness of breath Cardiovascular: No chest pain, syncope Gastrointestinal: No nausea, vomiting or diarrhea at present Genitourinary: No dysuria or hematuria Musculoskeletal: No new or worsening neck pain or back pain Neurologic: No headaches, seizures Hematologic: No easy bruising or bleeding Endocrine: No night sweats or acute weight loss Skin: negative for rash, jaundice Psychiatric: No suicidal or homicidal ideation Past History Past Medical History: COPD, hypertension, other (PATRICE, CHF) Past Surgical History: Other (colon resection) Social history: smoking (ex-smoker. Quit smoking cigarrette 8 months ago, but smoked for more than 40 years.), other (he denies alcohol or illicit drug use) Family history: other (reviewed and noncontributory) Medications and Allergies Allergies Allergy/AdvReac Type Severity Reaction Status Date / Time No Known Allergies Allergy Verified 12/15/18 08:14 Home Medications Medication Instructions Recorded Confirmed Last Taken Type Furosemide [Lasix] 20 mg PO DAILY 11/01/18 12/15/18 10/31/18 09:00 History Losartan [Cozaar] 100 mg PO QDAY #30 tablet 11/04/18 12/15/18 Unknown Rx hydrALAZINE [Apresoline TAB] 100 mg PO BID #60 tab 11/04/18 12/15/18 Unknown Rx Cetirizine HCl [Allergy] 10 mg PO DAILY 12/15/18 12/15/18 Unknown History Fluticasone [Flonase] 1 spray NS QDAY 12/15/18 12/15/18 Unknown History Metoprolol [Lopressor TAB] 50 mg PO BIDWM 12/15/18 12/15/18 Unknown History Potassium Chloride [K-Tab ER] 10 meq PO QDAY 12/15/18 12/15/18 Unknown History Simvastatin [Zocor] 40 mg PO QPM 12/15/18 12/15/18 Unknown History Active Meds: Active Medications Albuterol/Ipratropium (Duoneb *Not For Prn Use*) 1 ampul IH TIDRT [facility] Last Admin: 12/16/18 09:19 Dose: 1 ampul Documented by: Fluticasone Propionate (Flonase) 50 mcg NS QDAY [facility] Last Admin: 12/16/18 09:42 Dose: 50 mcg Documented by: Furosemide (Lasix) 40 mg IV QDAY [facility] Last Admin: 12/16/18 09:43 Dose: 40 mg Documented by: Guaifenesin (Mucinex Er) 600 mg PO BID [facility] Last Admin: 12/16/18 09:44 Dose: 600 mg Documented by: Azithromycin 500 mg/ Sodium (Chloride) 250 mls @ 250 mls/hr IV Q24HR [facility] Ceftriaxone Sodium (Rocephin/Ns 2 Gm/100 Ml) 2 gm in 100 mls @ 200 mls/hr IV Q24HR [facility]; Protocol Loratadine (Claritin) 10 mg PO DAILY [facility] Last Admin: 12/16/18 09:44 Dose: 10 mg Documented by: Metoprolol Tartrate (Lopressor) 25 mg PO BIDDIAB [facility] Ondansetron HCl (Zofran) 4 mg IV Q6H PRN PRN Reason: Nausea And Vomiting Last Admin: 12/16/18 11:26 Dose: 4 mg Documented by: Oxycodone/Acetaminophen (Percocet 5/325) 1 tab PO Q4H PRN PRN Reason: Pain, Moderate (4-6) Potassium Chloride (K-Dur) 10 meq PO QDAY [facility] Last Admin: 12/16/18 09:44 Dose: 10 meq Documented by: Pravastatin Sodium (Pravachol) 80 mg PO QHS [facility] Last Admin: 12/15/18 21:53 Dose: 80 mg Documented by: Physical Examination - Physical Exam Narrative exam: Physical Exam: Constitutional: Alert, cooperative. No acute distress Head, Ears, Nose: Normocephalic, atraumatic. External ears, nose normal Eyes: Conjunctivae/corneas clear. No icterus. No ptosis. Neck: Supple, no meningeal signs Oral: dentition several missing teeth, no thrush Cardiovascular: S1, S2 normal. Respiratory: Good air entry, clear to auscultation bilaterally GI: Soft, non-tender; bowel sounds normal. No peritoneal signs Musculoskeletal: No pedal edema, no cyanosis. Skin: No rash or abscess Hem/Lymphatic: No palpable cervical or supraclavicular nodes. No lymphangitis Psych: Mood ok. Affect normal Neurological: Awake, alert, oriented. No gross abnormality - Constitutional Vitals: Vital Signs Temp Pulse Resp BP Pulse Ox 98.2 F 70 22 94/70 94 12/16/18 12:35 12/16/18 12:35 12/16/18 12:35 12/16/18 12:35 12/16/18 12:35 Temperature -Last 24 Hours Temperature 98.2 F Temperature 97.6 F Temperature 98.3 F Temperature 97.9 F Results - Labs CBC & Chem 7: 12/16/18 06:05 12/16/18 00:25 Labs: Abnormal lab results 12/15/18 12/16/18 12/16/18 Range/Units 21:24 00:25 06:05 WBC 3.9 L (4.5-11.0) K/mm3 [place] % (Auto) 11.1 H (0.0-7.3) % Lymph # 0.7 L (1.2-5.4) K/mm3 Seg Neutrophils % 71.1 H (40.0-70.0) % Sodium 136 L (137-145) mmol/L Chloride 97.5 L (98-107) mmol/L Glucose 102 H (75-100) mg/dL Troponin T 0.046 H D (0.00-0.029) ng/mL - Imaging and Cardiology Chest x-ray: report reviewed, image reviewed (right sided pneumonia) Assessment and Plan Cultures: 12/15/2018 blood cultures: No growth at 24 hours 12/15/2018 MRSA culture in process 12/15/2018 sputum culture: Contaminated with saliva A/P: 63/M with COPD, hypertension, extensive smoking in the past, quit 8 months ago, prior colon resection: 1) Community acquired pneumonia with hemoptysis: Possibly related to community- acquired pneumonia given acute onset, however chest x-ray does show a right- sided infiltrate especially involving the upper lobe and hence tuberculosis is a part of the differential. For now, will treat with ceftriaxone and azithromycin. Avoid levofloxacin in patients with suspected TB. Continue him on airborne precautions, AFB and HIV tests are pending. TB Quantiferon Gold also ordered. Given his smoking history, malignancy is also possible. Recs: treat with ceftriaxone and azithromycin Avoid levofloxacin in patients with suspected TB Continue him on airborne precautions, AFB and HIV tests are pending TB Quantiferon Gold also ordered f/u sputum and blood cultures Will follow along. Kb Patel MD [facility] C: [phone] O: [phone] F: [phone]
[2018-12-16] MEDS: ZITHROMAX 500 MG in NACL 0.9% 250ML 250 ML IV SCH (15:00)
[2018-12-16] MEDS: PRAVACHOL PO SCH (23:02)
[2018-12-17] MEDS: DUONEB *Not for PRN Use IH SCH ×3 (07:23→20:37)
[2018-12-17] MEDS: K-DUR PO SCH (09:35)
[2018-12-17] MEDS: MUCINEX ER PO SCH ×2 (09:35→22:29)
[2018-12-17] MEDS: ZITHROMAX 500 MG in NACL 0.9% 250ML 250 ML IV SCH (09:35)
[2018-12-17] MEDS: LASIX IV SCH (09:35)
[2018-12-17] MEDS: CLARITIN PO SCH (09:35)
[2018-12-17] MEDS: FLONASE NS SCH (09:36)
--- NOTE | 2018-12-17 09:41 | Progress Note ---
Assessment and Plan Cultures: 12/15/2018 blood cultures: No growth at 24 hours 12/15/2018 MRSA culture in process 12/15/2018 sputum culture: Contaminated with saliva A/P: 63/M with COPD, hypertension, extensive smoking in the past, quit 8 months ago, prior colon resection: 1) Community acquired pneumonia with hemoptysis: Possibly related to community- acquired pneumonia given acute onset, however chest x-ray does show a right-si ded infiltrate especially involving the upper lobe and hence tuberculosis is a part of the differential. For now, will treat with ceftriaxone and azithromycin. Avoid levofloxacin in patients with suspected TB. Continue him on airborne precautions, AFB and HIV tests are pending. TB Quantiferon Gold also ordered. Given his smoking history, malignancy is also possible. -HIV negative Recs: continue ceftriaxone 2 gms IV every 24 hours GI upset from IV azithromycin, switch to Azithromycin 500mg PO Q6 H, Monitor closely, D3 Avoid levofloxacin in patients with suspected TB Continue him on airborne precautions, AFB cultures pending f/u TB Quantiferon Gold f/u blood cultures [facility] M: [phone] O:[phone] Subjective Date of service: 12/17/18 Interval history: Patient was seen and examined. Observed siting up in the chair. No fevers, denies cough or sputum production. Objective - Exam Narrative Exam: Constitutional: Alert, cooperative. No acute distress Head, Ears, Nose: Normocephalic, atraumatic. External ears, nose normal Eyes: Conjunctivae/corneas clear. No icterus. No ptosis. Neck: Supple, no meningeal signs Oral: dentition several missing teeth, no thrush Cardiovascular: S1, S2 tachycardia . Respiratory: Good air entry, clear to auscultation bilaterally GI: Soft, non-tender; bowel sounds normal. No peritoneal signs Musculoskeletal: No pedal edema, no cyanosis. Skin: No rash or abscess Hem/Lymphatic: No palpable cervical or supraclavicular nodes. No lymphangitis Psych: Mood ok. Affect normal Neurological: Awake, alert, oriented. No gross abnormality - Constitutional Vitals: Vital Signs Temp Pulse Resp BP Pulse Ox 98.1 F 87 18 101/75 95 12/16/18 22:34 12/17/18 07:36 12/17/18 08:42 12/16/18 22:34 12/17/18 00:14 Temperature -Last 24 Hours Temperature 98.1 F Temperature 98.3 F Temperature 98.2 F - Labs CBC & Chem 7: 12/16/18 06:05 12/16/18 00:25
[2018-12-17] MEDS: LOPRESSOR PO SCH ×2 (09:43→16:56)
[2018-12-17] MEDS: ROCEPHIN/NS 2 GM/100 ML 2 GM/100 ML BAG IV SCH (10:25)
--- NOTE | 2018-12-17 15:02 | Progress Note ---
Assessment and Plan Assessment and plan: Pneumonia (CAP) -Continue IV antibiotics -Chest x-ray positive for right upper lobe infiltrate -Blood cultures neg so far -Sputum unsatisfactory for culture Hemoptysis -cont airborne precautions -sputum for AFB, quantiferon and HIV tests pending -ID following Elevated troponin -Probably secondary to demand ischemia due to the infection -serial troponin levels stable and no acute chest pain -echocardiogram showed EF of 40-45% with diastolic dysfunction and hypokinesis -will consult cardiology History of CHF with EF of 40-45% -Asymptomatic -cont IV Lasix will change to oral in am RT hip pain -x-ray right hip showed osteoarthritic changes, no fracture Hypertension -Controlled Hyperlipidemia -On statin Obstructive sleep apnea -On CPAP at night COPD -No acute exacerbation -on PRN DuoNeb Obesity with BMI of 33.2 -Lifestyle modification recommended DVT prophylaxis with SCD due to hemoptysis Disposition: For discharge when clinically stable History Interval history: Pt has no new complaints. Hospitalist Physical - Constitutional Vitals: Temp Pulse Resp BP Pulse Ox 98.2 F 115 H 22 95/59 95 12/17/18 12:03 12/17/18 12:03 12/17/18 12:03 12/17/18 12:03 12/17/18 12:03 General appearance: Present: no acute distress, obese - EENT Eyes: Present: PERRL, EOM intact ENT: hearing intact, clear oral mucosa - Neck Neck: Present: supple - Respiratory Respiratory effort: normal Respiratory: right: rales - Cardiovascular Rhythm: regular Heart Sounds: Present: S1 & S2 - Extremities Extremities: No edema - Abdominal General gastrointestinal: soft, non-tender, normal bowel sounds - Neurologic Neurologic: CNII-XII intact Results - Labs CBC & Chem 7: 12/16/18 06:05 12/16/18 00:25 Labs: Laboratory Last Values WBC 3.9 K/mm3 (4.5-11.0) L 12/16/18 06:05 RBC 4.72 M/mm3 (3.65-5.03) 12/16/18 06:05 Hgb 13.9 gm/dl (11.8-15.2) 12/16/18 06:05 Hct 42.2 % (35.5-45.6) 12/16/18 06:05 MCV 89 fl (84-94) 12/16/18 06:05 MCH 29 pg (28-32) 12/16/18 06:05 MCHC 33 % (32-34) 12/16/18 06:05 RDW 14.4 % (13.2-15.2) 12/16/18 06:05 Plt Count 140 K/mm3 (140-440) 12/16/18 06:05 Lymph % (Auto) 17.2 % (13.4-35.0) 12/16/18 06:05 [place] % (Auto) 11.1 % (0.0-7.3) H 12/16/18 06:05 Eos % (Auto) 0.1 % (0.0-4.3) 12/16/18 06:05 Baso % (Auto) 0.5 % (0.0-1.8) 12/16/18 06:05 Lymph # 0.7 K/mm3 (1.2-5.4) L 12/16/18 06:05 [place] # 0.4 K/mm3 (0.0-0.8) 12/16/18 06:05 Eos # 0.0 K/mm3 (0.0-0.4) 12/16/18 06:05 Baso # 0.0 K/mm3 (0.0-0.1) 12/16/18 06:05 Seg Neutrophils % 71.1 % (40.0-70.0) H 12/16/18 06:05 Seg Neutrophils # 2.8 K/mm3 (1.8-7.7) 12/16/18 06:05 PT 14.9 Sec. (12.2-14.9) 12/15/18 09:11 INR 1.10 (0.87-1.13) 12/15/18 09:11 APTT 34.3 Sec. (24.2-36.6) 12/15/18 09:11 Sodium 136 mmol/L (137-145) L 12/16/18 00:25 Potassium 3.8 mmol/L (3.6-5.0) 12/16/18 00:25 Chloride 97.5 mmol/L (98-107) L 12/16/18 00:25 Carbon Dioxide 27 mmol/L (22-30) 12/16/18 00:25 Anion Gap 15 mmol/L 12/16/18 00:25 BUN 19 mg/dL (9-20) 12/16/18 00:25 Creatinine 1.3 mg/dL (0.8-1.5) 12/16/18 00:25 Estimated GFR > 60 ml/min 12/16/18 00:25 BUN/Creatinine Ratio 15 % 12/16/18 00:25 Glucose 102 mg/dL (75-100) H 12/16/18 00:25 Lactic Acid 1.50 mmol/L (0.7-2.0) 12/15/18 09:11 Calcium 8.4 mg/dL (8.4-10.2) 12/16/18 00:25 Magnesium 2.00 mg/dL (1.7-2.3) 12/15/18 09:11 Total Bilirubin 0.40 mg/dL (0.1-1.2) 12/15/18 09:11 Direct Bilirubin < 0.2 mg/dL (0-0.2) 12/15/18 09:11 Indirect Bilirubin 0.2 mg/dL 12/15/18 09:11 AST 35 units/L (5-40) 12/15/18 09:11 ALT 29 units/L (7-56) 12/15/18 09:11 Alkaline Phosphatase 47 units/L (35-129) 12/15/18 09:11 Troponin T 0.046 ng/mL (0.00-0.029) H D 12/15/18 21:24 NT-Pro-B Natriuret Pep 4473 pg/mL (0-900) H 12/15/18 09:11 Total Protein 7.2 g/dL (6.3-8.2) 12/15/18 09:11 Albumin 4.0 g/dL (3.9-5) 12/15/18 09:11 Albumin/Globulin Ratio 1.3 % 12/15/18 09:11 Triglycerides 99 mg/dL (2-149) 12/15/18 09:11 Cholesterol 198 mg/dL (50-199) 12/15/18 09:11 LDL Cholesterol Direct 123 mg/dL (50-130) 12/15/18 09:11 HDL Cholesterol 63 mg/dL (40-59) H 12/15/18 09:11 Cholesterol/HDL Ratio 3.14 % 12/15/18 09:11 Urine Color [place] (Yellow) 12/15/18 10:36 Urine Turbidity Clear (Clear) 12/15/18 10:36 Urine pH 5.0 (5.0-7.0) 12/15/18 10:36 Ur Specific [place] 1.028 (1.003-1.030) 12/15/18 10:36 Urine Protein >2000 mg dl mg/dL (Negative) 12/15/18 10:36 Urine Glucose (UA) Neg mg/dL (Negative) 12/15/18 10:36 Urine Ketones Tr mg/dL (Negative) 12/15/18 10:36 Urine Blood Neg (Negative) 12/15/18 10:36 Urine Nitrite Neg (Negative) 12/15/18 10:36 Urine Bilirubin Neg (Negative) 12/15/18 10:36 Urine Urobilinogen < 2.0 mg/dL (<2.0) 12/15/18 10:36 Ur Leukocyte Esterase Neg (Negative) 12/15/18 10:36 Urine WBC (Auto) 1.0 /HPF (0.0-6.0) 12/15/18 10:36 Urine RBC (Auto) < 1.0 /HPF (0.0-6.0) 12/15/18 10:36 U Epithel Cells (Auto) < 1.0 /HPF (0-13.0) 12/15/18 10:36 Urine Bacteria (Auto) 1+ /HPF (Negative) 12/15/18 10:36 Urine Mucus Few /HPF 12/15/18 10:36 HIV 1&2 Antibody Rapid Non react (Non React) 12/17/18 04:30 HIV P24 Antigen Non react (Non React) 12/17/18 04:30
[2018-12-17] MEDS: PRAVACHOL PO SCH (22:29)
[2018-12-18 06:34] LABS: Hematocrit 40.3 % (35.5-45.6); Hemoglobin 13.6 gm/dl (11.8-15.2); Mean Corpuscular HGB Conc 34 % (32-34); Mean Corpuscular Volume 88 fl (84-94); Platelet Count 153 K/mm3 (140-440); Red Blood Count 4.56 M/mm3 (3.65-5.03); Red Cell Distribution Width 14.5 % (13.2-15.2)
[2018-12-18 06:53] LABS: Calcium 8.5 mg/dL (8.4-10.2)
[2018-12-18] MEDS: LOPRESSOR PO SCH ×2 (08:26→19:17)
[2018-12-18 08:34] LABS: Basophils % (Manual) 0 % (0.0-1.8); Eosinophils % (Manual) 0 % (0.0-4.3); Total Cells Counted 100
[2018-12-18 08:35] LABS: Ovalocytes Few; Platelet Estimate Consistent w Auto
[2018-12-18] MEDS: DUONEB *Not for PRN Use IH SCH ×3 (08:59→19:59)
[2018-12-18] MEDS: MUCINEX ER PO SCH ×2 (09:57→21:07)
[2018-12-18] MEDS: ZITHROMAX PO SCH (09:57)
[2018-12-18] MEDS: K-DUR PO SCH (09:57)
[2018-12-18] MEDS: CLARITIN PO SCH (09:57)
[2018-12-18] MEDS: LASIX IV SCH (09:57)
[2018-12-18] MEDS: ROCEPHIN/NS 2 GM/100 ML 2 GM/100 ML BAG IV SCH (09:58)
--- NOTE | 2018-12-18 10:05 | Progress Note ---
Assessment and Plan Cultures: 12/15/2018 blood cultures: No growth at 24 hours 12/15/2018 MRSA culture in process 12/15/2018 sputum culture: Contaminated with saliva -019 AFB smear: negative A/P: 63/M with COPD, hypertension, extensive smoking in the past, quit 8 months ago, prior colon resection: 1) Community acquired pneumonia with hemoptysis: Possibly related to community- acquired pneumonia given acute onset, however chest x-ray does show a right- sided infiltrate especially involving the upper lobe and hence tuberculosis is a part of the differential. For now, will treat with ceftriaxone and azithromycin. Avoid levofloxacin in patients with suspected TB. Continue him on airborne precautions, AFB and HIV tests are pending. TB Quantiferon Gold also ordered. HIV negative CT Chest: There is no evidence for consolidation or mass. Bilateral patchy infiltrates consistent with pneumonia. This could represent atypical pneumonia. Recs: continue ceftriaxone 2 gms IV every 24 hours continue Azithromycin 500mg PO Q 24 Monitor closely, D4 Avoid levofloxacin in patients with suspected TB Continue him on airborne precautions, AFB cultures pending f/u TB Quantiferon Gold f/u blood cultures Dr. Bartlett will be reconditioning associate this weekend, . Please call for questions. Reena Angel NP [facility] M: [phone] O:[phone] Subjective Date of service: 12/18/18 Interval history: Patient was seen and examined. Observed siting up in the chair. No fevers,rash or SOB . Denies cough or sputum production. Objective - Exam Narrative Exam: Constitutional: Alert, cooperative. No acute distress Head, Ears, Nose: Normocephalic, atraumatic. External ears, nose normal Eyes: Conjunctivae/corneas clear. No icterus. No ptosis. Neck: Supple, no meningeal signs Oral: dentition several missing teeth, no thrush Cardiovascular: RRR Respiratory: Good air entry, clear to auscultation bilaterally GI: Soft, non-tender; bowel sounds normal. No peritoneal signs Musculoskeletal: No pedal edema, no cyanosis. Skin: No rash or abscess Hem/Lymphatic: No palpable cervical or supraclavicular nodes. No lymphangitis Psych: Mood ok. Affect normal Neurological: Awake, alert, oriented. No gross abnormality - Constitutional Vitals: Vital Signs Temp Pulse Resp BP Pulse Ox 97.2 F L 80 20 96/77 91 12/18/18 06:05 12/18/18 09:12 12/18/18 09:12 12/18/18 06:05 12/18/18 06:05 Temperature -Last 24 Hours Temperature 97.2 F Temperature 98.1 F Temperature 98.1 F Temperature 98.2 F - Labs CBC & Chem 7: 12/18/18 06:12 12/18/18 06:12 Labs: Abnormal lab results 12/18/18 12/18/18 Range/Units 06:12 06:12 WBC 3.2 L (4.5-11.0) K/mm3 Monocytes % (Manual) 20.0 H (0.0-7.3) % Seg Neutrophils # Man 1.7 L (1.8-7.7) K/mm3 Lymphocytes # (Manual) 0.9 L (1.2-5.4) K/mm3 Glucose 112 H (75-100) mg/dL
[2018-12-18] MEDS: FLONASE NS SCH (11:51)
--- NOTE | 2018-12-18 12:56 | Consultation ---
History of Present Illness Consult date: 12/18/18 Requesting physician: TALI REIS Consult reason: elevated troponin History of present illness: The pt is a 63 YO male with a past medical history of nonobstructive CAD, HTN, HLP, mild LV dysfunction, PATRICE, tobacco use. He is followed in our office by Dr. Stuart. He presented with cough and hemoptysis x 2 days. He has been diagnosed with PNA. Infectious disease team is ruling out TB and malignancy. Pt denies any cardiac complaints. He was noted to have minimally elevated trop and thus cardiology has been consulted. Echo done 12/15/2018 showed mod LVH, EF 40-45%, impaired relaxation, mid anteroseptal and apical anterior wall hypokinesis, mild MR, RVSP 25mmHg. LHC done 03/2015 showed mild diffuse nonobstructive luminal irregularities, EF 40-45%. Lexiscan MPI stress test done 11/2017 was negative for scar or ischemia, EF 43%. Past History Past Medical History: COPD, hypertension, other (PATRICE, CHF) Past Surgical History: Other (colon resection) Social history: smoking (ex-smoker. Quit smoking cigarrette 8 months ago, but smoked for more than 40 years.), other (he denies alcohol or illicit drug use) Family history: other (reviewed and noncontributory) Medications and Allergies Allergies Allergy/AdvReac Type Severity Reaction Status Date / Time No Known Allergies Allergy Verified 12/15/18 08:14 Home Medications Medication Instructions Recorded Confirmed Last Taken Type Furosemide [Lasix] 20 mg PO DAILY 11/01/18 12/15/18 10/31/18 09:00 History Losartan [Cozaar] 100 mg PO QDAY #30 tablet 11/04/18 12/15/18 Unknown Rx hydrALAZINE [Apresoline TAB] 100 mg PO BID #60 tab 11/04/18 12/15/18 Unknown Rx Cetirizine HCl [Allergy] 10 mg PO DAILY 12/15/18 12/15/18 Unknown History Fluticasone [Flonase] 1 spray NS QDAY 12/15/18 12/15/18 Unknown History Metoprolol [Lopressor TAB] 50 mg PO BIDWM 12/15/18 12/15/18 Unknown History Potassium Chloride [K-Tab ER] 10 meq PO QDAY 12/15/18 12/15/18 Unknown History Simvastatin [Zocor] 40 mg PO QPM 12/15/18 12/15/18 Unknown History Active Meds: Active Medications Albuterol/Ipratropium (Duoneb *Not For Prn Use*) 1 ampul IH TIDRT [facility] Last Admin: 12/18/18 08:59 Dose: 1 ampul Documented by: Azithromycin (Zithromax) 500 mg PO QDAY [facility] Stop: 12/20/18 11:59 Last Admin: 12/18/18 09:57 Dose: 500 mg Documented by: Fluticasone Propionate (Flonase) 50 mcg NS QDAY [facility] Last Admin: 12/18/18 11:51 Dose: 50 mcg Documented by: Furosemide (Lasix) 20 mg PO QDAY [facility] Guaifenesin (Mucinex Er) 600 mg PO BID [facility] Last Admin: 12/18/18 09:57 Dose: 600 mg Documented by: Ceftriaxone Sodium (Rocephin/Ns 2 Gm/100 Ml) 2 gm in 100 mls @ 200 mls/hr IV Q24HR [facility]; Protocol Last Admin: 12/18/18 09:58 Dose: 200 mls/hr Documented by: Loratadine (Claritin) 10 mg PO DAILY [facility] Last Admin: 12/18/18 09:57 Dose: 10 mg Documented by: Metoprolol Tartrate (Lopressor) 25 mg PO BIDDIAB [facility] Last Admin: 12/18/18 08:26 Dose: Not Given Documented by: Ondansetron HCl (Zofran) 4 mg IV Q6H PRN PRN Reason: Nausea And Vomiting Last Admin: 12/16/18 11:26 Dose: 4 mg Documented by: Oxycodone/Acetaminophen (Percocet 5/325) 1 tab PO Q4H PRN PRN Reason: Pain, Moderate (4-6) Potassium Chloride (K-Dur) 10 meq PO QDAY [facility] Last Admin: 12/18/18 09:57 Dose: 10 meq Documented by: Pravastatin Sodium (Pravachol) 80 mg PO QHS [facility] Last Admin: 12/17/18 22:29 Dose: 80 mg Documented by: Review of Systems Constitutional: no weight loss, no weight gain, no fever, no chills, no sweats Ears, nose, mouth and throat: no ear pain, no nose pain, no sinus pressure, no sinus pain Cardiovascular: no chest pain, no orthopnea, no palpitations, no rapid/irregular heart beat, no edema, no syncope, no lightheadedness, no shortness of breath, no dyspnea on exertion, no paroxysmal nocturnal dyspnea, no leg edema Respiratory: cough, hemoptysis, sleep apnea, no shortness of breath, no dyspnea on exertion, no congestion, no wheezing, no pain on inspiration Gastrointestinal: no abdominal pain, no nausea, no vomiting, no diarrhea, no constipation, no change in bowel habits Genitourinary Male: no dysuria, no hematuria, no flank pain, no discharge, no ur inary frequency, no urinary hesitancy Musculoskeletal: no neck stiffness, no neck pain, no shooting arm pain, no arm numbness/tingling, no low back pain, no shooting leg pain Integumentary: no rash, no pruritis, no redness, no sores, no wounds Neurological: no head injury, no paralysis, no weakness, no parathesias, no numbness, no tingling, no seizures, no syncope Psychiatric: no anxiety Endocrine: no cold intolerance, no heat intolerance Hematologic/Lymphatic: no easy bruising, no easy bleeding, no lymphadenopathy Allergic/Immunologic: no urticaria, no wheezing, no persistent infections Physical Examination Vital Signs Temp Pulse Resp BP Pulse Ox 99.7 F H 83 18 135/78 94 12/15/18 04:43 12/15/18 04:43 12/15/18 04:43 12/15/18 04:43 12/15/18 04:43 General appearance: no acute distress HEENT: Positive: PERRL, Normocephaly, Mucus Membranes Moist Neck: Positive: neck supple, trachea midline Cardiac: Positive: Reg Rate and Rhythm, S1/S2 Lungs: Positive: Decreased Breath Sounds Neuro: Positive: Grossly Intact Abdomen: Positive: Soft. Negative: Tender Skin: Negative: Rash, Wound Results 12/18/18 06:12 12/18/18 06:12 CBC 12/18/18 Range/Units 06:12 WBC 3.2 L (4.5-11.0) K/mm3 RBC 4.56 (3.65-5.03) M/mm3 Hgb 13.6 (11.8-15.2) gm/dl Hct 40.3 (35.5-45.6) % Plt Count 153 (140-440) K/mm3 Comprehensive Metabolic Panel 12/18/18 Range/Units 06:12 Sodium 140 (137-145) mmol/L Potassium 4.1 (3.6-5.0) mmol/L Chloride 98.9 (98-107) mmol/L Carbon Dioxide 27 (22-30) mmol/L BUN 18 (9-20) mg/dL Creatinine 1.5 (0.8-1.5) mg/dL Glucose 112 H (75-100) mg/dL Calcium 8.5 (8.4-10.2) mg/dL - Imaging and Cardiology Echo: report reviewed (12/15/2018 showed mod LVH, EF 40-45%, impaired relaxation, mid anteroseptal and apical anterior wall hypokinesis, mild MR, RVSP 25mmHg. ) Cardiac cath: report reviewed (03/2015 showed mild diffuse nonobstructive luminal irregularities, EF 40-45%. ) EKG: report reviewed, image reviewed EKG interpretations - Telemetry EKG Rhythm: Sinus Rhythm - EKG Sinus rhythms and dysrhythmias: sinus rhythm Repolarization changes or abnormalities: nonspecific abnormality, ST segment, and/or T wave Assessment and Plan Pt noted to have minimally elevated troponins. No current cardiac complaints. AMI ruled out. Suspect minimal trop elevation secondary to acute infection. Currently stable cardiac status. No plans for additional cardiac w/u at this time. Cont home cardiac regimen. Will follow on as needed basis. Recommend pt follow up in our office with Dr. Stuart within 1-2 weeks of hospital discharge ([phone]). The patient has been seen in conjunction with Dr. Paredes who agrees with the assessment and plan of care. - Patient Problems (1) Pneumonia Current Visit: Yes Status: Acute (2) Hemoptysis Current Visit: Yes Status: Acute (3) Elevated troponin Current Visit: Yes Status: Acute (4) HTN (hypertension) Current Visit: Yes Status: Chronic Qualifiers: Hypertension type: essential hypertension Qualified Code(s): I10 - Essential (primary) hypertension (5) Hyperlipidemia Current Visit: Yes Status: Chronic (6) LV dysfunction Current Visit: Yes Status: Chronic (7) Nonobstructive atherosclerosis of coronary artery Current Visit: Yes Status: Chronic (8) Sleep apnea Current Visit: Yes Status: Chronic (9) Former tobacco use Current Visit: Yes Status: Chronic
--- NOTE | 2018-12-18 13:55 | Progress Note ---
Assessment and Plan Assessment and plan: Pneumonia (CAP) -Continue antibiotics -Chest x-ray positive for right upper lobe infiltrate -Blood cultures neg so far -Sputum unsatisfactory for culture Hemoptysis -cont airborne precautions -sputum for AFB and quantiferon gold pending -HIV neg -will do chest CT to assess for other causes -ID following Elevated troponin -Probably secondary to demand ischemia due to the infection -serial troponin levels stable and no acute chest pain -echocardiogram showed EF of 40-45% with diastolic dysfunction and hypokinesis -cardiology consulted Chronic diastolic HF with EF of 40-45% -No acute exacerbation -IV Lasix changed to oral RT hip pain -x-ray right hip showed osteoarthritic changes, no fracture Hypertension -Controlled Hyperlipidemia -On statin Obstructive sleep apnea -On CPAP at night COPD -No acute exacerbation -on PRN DuoNeb Obesity with BMI of 33.2 -Lifestyle modification recommended DVT prophylaxis with SCD due to hemoptysis Disposition: For discharge when pending tests are available History Interval history: Pt has no new complaints. Hospitalist Physical - Constitutional Vitals: Temp Pulse Resp BP Pulse Ox 97.7 F 98 H 20 125/86 93 12/18/18 12:56 12/18/18 12:56 12/18/18 12:56 12/18/18 12:56 12/18/18 12:56 General appearance: Present: no acute distress - EENT Eyes: Present: PERRL, EOM intact ENT: hearing intact, clear oral mucosa - Neck Neck: Present: supple - Respiratory Respiratory effort: normal Respiratory: bilateral: CTA - Cardiovascular Rhythm: regular Heart Sounds: Present: S1 & S2 - Extremities Extremities: No edema - Abdominal General gastrointestinal: soft, non-tender, non-distended, normal bowel sounds - Neurologic Neurologic: CNII-XII intact Results - Labs CBC & Chem 7: 12/18/18 06:12 12/18/18 06:12 Labs: Laboratory Last Values WBC 3.2 K/mm3 (4.5-11.0) L 12/18/18 06:12 RBC 4.56 M/mm3 (3.65-5.03) 12/18/18 06:12 Hgb 13.6 gm/dl (11.8-15.2) 12/18/18 06:12 Hct 40.3 % (35.5-45.6) 12/18/18 06:12 MCV 88 fl (84-94) 12/18/18 06:12 MCH 30 pg (28-32) 12/18/18 06:12 MCHC 34 % (32-34) 12/18/18 06:12 RDW 14.5 % (13.2-15.2) 12/18/18 06:12 Plt Count 153 K/mm3 (140-440) 12/18/18 06:12 Lymph % (Auto) 17.2 % (13.4-35.0) 12/16/18 06:05 [place] % (Auto) Contracts Director 12/18/18 06:12 Eos % (Auto) 0.1 % (0.0-4.3) 12/16/18 06:05 Baso % (Auto) 0.5 % (0.0-1.8) 12/16/18 06:05 Lymph # 0.7 K/mm3 (1.2-5.4) L 12/16/18 06:05 [place] # 0.4 K/mm3 (0.0-0.8) 12/16/18 06:05 Eos # 0.0 K/mm3 (0.0-0.4) 12/16/18 06:05 Baso # 0.0 K/mm3 (0.0-0.1) 12/16/18 06:05 Add Manual Diff Complete 12/18/18 06:12 Total Counted 100 12/18/18 06:12 Seg Neutrophils % 71.1 % (40.0-70.0) H 12/16/18 06:05 Seg Neuts % (Manual) 53.0 % (40.0-70.0) 12/18/18 06:12 Band Neutrophils % 0 % 12/18/18 06:12 Lymphocytes % (Manual) 27.0 % (13.4-35.0) 12/18/18 06:12 Reactive Lymphs % (Man) 0 % 12/18/18 06:12 Monocytes % (Manual) 20.0 % (0.0-7.3) H 12/18/18 06:12 Eosinophils % (Manual) 0 % (0.0-4.3) 12/18/18 06:12 Basophils % (Manual) 0 % (0.0-1.8) 12/18/18 06:12 Metamyelocytes % 0 % 12/18/18 06:12 Myelocytes % 0 % 12/18/18 06:12 Promyelocytes % 0 % 12/18/18 06:12 Blast Cells % 0 % 12/18/18 06:12 Nucleated RBC % Not Reportable 12/18/18 06:12 Seg Neutrophils # 2.8 K/mm3 (1.8-7.7) 12/16/18 06:05 Seg Neutrophils # Man 1.7 K/mm3 (1.8-7.7) L 12/18/18 06:12 Band Neutrophils # 0.0 K/mm3 12/18/18 06:12 Lymphocytes # (Manual) 0.9 K/mm3 (1.2-5.4) L 12/18/18 06:12 Abs React Lymphs (Man) 0.0 K/mm3 12/18/18 06:12 Monocytes # (Manual) 0.6 K/mm3 (0.0-0.8) 12/18/18 06:12 Eosinophils # (Manual) 0.0 K/mm3 (0.0-0.4) 12/18/18 06:12 Basophils # (Manual) 0.0 K/mm3 (0.0-0.1) 12/18/18 06:12 Metamyelocytes # 0.0 K/mm3 12/18/18 06:12 Myelocytes # 0.0 K/mm3 12/18/18 06:12 Promyelocytes # 0.0 K/mm3 12/18/18 06:12 Blast Cells # 0.0 K/mm3 12/18/18 06:12 WBC Morphology Not Reportable 12/18/18 06:12 Hypersegmented Neuts Not Reportable 12/18/18 06:12 Hyposegmented Neuts Not Reportable 12/18/18 06:12 Hypogranular Neuts Not Reportable 12/18/18 06:12 Smudge Cells Not Reportable 12/18/18 06:12 Toxic Granulation Not Reportable 12/18/18 06:12 Toxic Vacuolation Not Reportable 12/18/18 06:12 Dohle Bodies Not Reportable 12/18/18 06:12 Pelger-Huet Anomaly Not Reportable 12/18/18 06:12 Torrie Rods Not Reportable 12/18/18 06:12 Platelet Estimate Consistent w auto 12/18/18 06:12 Clumped Platelets Not Reportable 12/18/18 06:12 Plt Clumps, EDTA Not Reportable 12/18/18 06:12 Large Platelets Not Reportable 12/18/18 06:12 Giant Platelets Not Reportable 12/18/18 06:12 Platelet Satelliting Not Reportable 12/18/18 06:12 Plt Morphology Comment Not Reportable 12/18/18 06:12 RBC Morphology Not Reportable 12/18/18 06:12 Dimorphic RBCs Not Reportable 12/18/18 06:12 Polychromasia Not Reportable 12/18/18 06:12 Hypochromasia Not Reportable 12/18/18 06:12 Poikilocytosis Not Reportable 12/18/18 06:12 Anisocytosis Not Reportable 12/18/18 06:12 Microcytosis Not Reportable 12/18/18 06:12 Macrocytosis Not Reportable 12/18/18 06:12 Spherocytes Not Reportable 12/18/18 06:12 Pappenheimer Bodies Not Reportable 12/18/18 06:12 Sickle Cells Not Reportable 12/18/18 06:12 Target Cells Not Reportable 12/18/18 06:12 Tear Drop Cells Not Reportable 12/18/18 06:12 Ovalocytes Few 12/18/18 06:12 Helmet Cells Not Reportable 12/18/18 06:12 [place] Bodies Not Reportable 12/18/18 06:12 [place] Rings Not Reportable 12/18/18 06:12 [place] Cells Not Reportable 12/18/18 06:12 Bite Cells Not Reportable 12/18/18 06:12 Crenated Cell Not Reportable 12/18/18 06:12 Elliptocytes Not Reportable 12/18/18 06:12 Acanthocytes (Spur) Not Reportable 12/18/18 06:12 Rouleaux Not Reportable 12/18/18 06:12 Hemoglobin C Crystals Not Reportable 12/18/18 06:12 Schistocytes Not Reportable 12/18/18 06:12 Malaria parasites Not Reportable 12/18/18 06:12 Ga Bodies Not Reportable 12/18/18 06:12 Hem Pathologist Commnt No 12/18/18 06:12 PT 14.9 Sec. (12.2-14.9) 12/15/18 09:11 INR 1.10 (0.87-1.13) 12/15/18 09:11 APTT 34.3 Sec. (24.2-36.6) 12/15/18 09:11 Sodium 140 mmol/L (137-145) 12/18/18 06:12 Potassium 4.1 mmol/L (3.6-5.0) 12/18/18 06:12 Chloride 98.9 mmol/L (98-107) 12/18/18 06:12 Carbon Dioxide 27 mmol/L (22-30) 12/18/18 06:12 Anion Gap 18 mmol/L 12/18/18 06:12 BUN 18 mg/dL (9-20) 12/18/18 06:12 Creatinine 1.5 mg/dL (0.8-1.5) 12/18/18 06:12 Estimated GFR 57 ml/min 12/18/18 06:12 BUN/Creatinine Ratio 12 % 12/18/18 06:12 Glucose 112 mg/dL (75-100) H 12/18/18 06:12 Lactic Acid 1.50 mmol/L (0.7-2.0) 12/15/18 09:11 Calcium 8.5 mg/dL (8.4-10.2) 12/18/18 06:12 Magnesium 2.00 mg/dL (1.7-2.3) 12/15/18 09:11 Total Bilirubin 0.40 mg/dL (0.1-1.2) 12/15/18 09:11 Direct Bilirubin < 0.2 mg/dL (0-0.2) 12/15/18 09:11 Indirect Bilirubin 0.2 mg/dL 12/15/18 09:11 AST 35 units/L (5-40) 12/15/18 09:11 ALT 29 units/L (7-56) 12/15/18 09:11 Alkaline Phosphatase 47 units/L (35-129) 12/15/18 09:11 Troponin T 0.046 ng/mL (0.00-0.029) H D 12/15/18 21:24 NT-Pro-B Natriuret Pep 815.9 pg/mL (0-900) 12/18/18 06:12 Total Protein 7.2 g/dL (6.3-8.2) 12/15/18 09:11 Albumin 4.0 g/dL (3.9-5) 12/15/18 09:11 Albumin/Globulin Ratio 1.3 % 12/15/18 09:11 Triglycerides 99 mg/dL (2-149) 12/15/18 09:11 Cholesterol 198 mg/dL (50-199) 12/15/18 09:11 LDL Cholesterol Direct 123 mg/dL (50-130) 12/15/18 09:11 HDL Cholesterol 63 mg/dL (40-59) H 12/15/18 09:11 Cholesterol/HDL Ratio 3.14 % 12/15/18 09:11 Urine Color Alla (Yellow) 12/15/18 10:36 Urine Turbidity Clear (Clear) 12/15/18 10:36 Urine pH 5.0 (5.0-7.0) 12/15/18 10:36 Ur Specific [place] 1.028 (1.003-1.030) 12/15/18 10:36 Urine Protein >2000 mg dl mg/dL (Negative) 12/15/18 10:36 Urine Glucose (UA) Neg mg/dL (Negative) 12/15/18 10:36 Urine Ketones Tr mg/dL (Negative) 12/15/18 10:36 Urine Blood Neg (Negative) 12/15/18 10:36 Urine Nitrite Neg (Negative) 12/15/18 10:36 Urine Bilirubin Neg (Negative) 12/15/18 10:36 Urine Urobilinogen < 2.0 mg/dL (<2.0) 12/15/18 10:36 Ur Leukocyte Esterase Neg (Negative) 12/15/18 10:36 Urine WBC (Auto) 1.0 /HPF (0.0-6.0) 12/15/18 10:36 Urine RBC (Auto) < 1.0 /HPF (0.0-6.0) 12/15/18 10:36 U Epithel Cells (Auto) < 1.0 /HPF (0-13.0) 12/15/18 10:36 Urine Bacteria (Auto) 1+ /HPF (Negative) 12/15/18 10:36 Urine Mucus Few /HPF 12/15/18 10:36 HIV 1&2 Antibody Rapid Non react (Non React) 12/17/18 04:30 HIV P24 Antigen Non react (Non React) 12/17/18 04:30
--- NOTE | 2018-12-18 15:29 | Cat Scan Report ---
CT CHEST WITHOUT CONTRAST: HISTORY: Hemoptysis. COMPARISON: none. TECHNIQUE: Helical CT in 1.25mm intervals without IV contrast. Sagittal and coronal reformatted images. FINDINGS: Thyroid gland: Normal. Tracheobronchial tree: Normal. Esophagus: Normal. Heart: Heart size is borderline. Pericardium: Normal. Mediastinum: Normal. Lung Diaz: There is patchy peribronchial infiltrate in the right upper lobe, right middle lobe and to a lesser extent the left upper lobe and lingula. These have the appearance of an infectious infiltrates. There is no evidence for consolidation or mass. Pleural Spaces: Normal. Musculoskeletal: Normal. IMPRESSION: Bilateral patchy infiltrates consistent with pneumonia. This could represent atypical pneumonia.
[2018-12-18] MEDS: PRAVACHOL PO SCH (21:07)
[2018-12-19] MEDS: DUONEB *Not for PRN Use IH SCH ×3 (08:33→20:15)
[2018-12-19] MEDS: LOPRESSOR PO SCH ×2 (08:58→16:34)
[2018-12-19] MEDS: ROCEPHIN/NS 2 GM/100 ML 2 GM/100 ML BAG IV SCH (09:51)
[2018-12-19] MEDS: MUCINEX ER PO SCH ×2 (09:51→22:32)
[2018-12-19] MEDS: ZITHROMAX PO SCH (09:52)
[2018-12-19] MEDS: LASIX PO SCH (09:52)
[2018-12-19] MEDS: CLARITIN PO SCH (09:52)
[2018-12-19] MEDS: K-DUR PO SCH (09:52)
[2018-12-19] MEDS: FLONASE NS SCH (09:58)
--- NOTE | 2018-12-19 14:31 | Progress Note ---
Assessment and Plan Assessment and plan: Bilateral Pneumonia (CAP) -Continue antibiotics with Rocephin and Azithromycin -Chest x-ray positive for right upper lobe infiltrate -Chest CT showed bilateral PNA -Blood cultures neg so far -Sputum unsatisfactory for culture Hemoptysis -cont airborne precautions -sputum for AFB and quantiferon gold pending -HIV neg -chest CT showed bilateral PNA -ID following Elevated troponin -Probably secondary to demand ischemia due to the infection -serial troponin levels stable and no acute chest pain -echocardiogram on 12/15/18 showed EF of 40-45% with diastolic dysfunction and mid anteroseptal and apical anterior wall hypokinesis, mild MR, RVSP 25mmHg. -LHC done 03/2015 showed mild diffuse nonobstructive luminal irregularities, EF 40-45%. -Lexiscan MPI stress test done 11/2017 was negative for scar or ischemia, EF 43%. -cardiology following Chronic diastolic HF with EF of 40-45% -No acute exacerbation RT hip pain -x-ray right hip showed osteoarthritic changes, no fracture Hypertension -Controlled Hyperlipidemia -On statin Obstructive sleep apnea -On CPAP at night COPD -No acute exacerbation -on PRN DuoNeb Obesity with BMI of 33.2 -Lifestyle modification recommended DVT prophylaxis with SCD due to hemoptysis Disposition: For discharge when pending tests are available History Interval history: Patient reports feeling better. He stated that his hemoptysis has resolved. Hospitalist Physical - Constitutional Vitals: Temp Pulse Resp BP Pulse Ox 98.1 F 72 18 122/78 97 12/19/18 11:39 12/19/18 11:39 12/19/18 11:39 12/19/18 11:39 12/19/18 11:39 General appearance: Present: no acute distress - EENT Eyes: Present: PERRL, EOM intact ENT: hearing intact, clear oral mucosa - Neck Neck: Present: supple - Respiratory Respiratory effort: normal Respiratory: bilateral: CTA - Cardiovascular Rhythm: regular Heart Sounds: Present: S1 & S2 - Extremities Extremities: No edema - Abdominal General gastrointestinal: soft, non-tender, non-distended, normal bowel sounds - Neurologic Neurologic: CNII-XII intact Results - Labs CBC & Chem 7: 12/18/18 06:12 12/18/18 06:12 Labs: Laboratory Last Values WBC 3.2 K/mm3 (4.5-11.0) L 12/18/18 06:12 RBC 4.56 M/mm3 (3.65-5.03) 12/18/18 06:12 Hgb 13.6 gm/dl (11.8-15.2) 12/18/18 06:12 Hct 40.3 % (35.5-45.6) 12/18/18 06:12 MCV 88 fl (84-94) 12/18/18 06:12 MCH 30 pg (28-32) 12/18/18 06:12 MCHC 34 % (32-34) 12/18/18 06:12 RDW 14.5 % (13.2-15.2) 12/18/18 06:12 Plt Count 153 K/mm3 (140-440) 12/18/18 06:12 Lymph % (Auto) 17.2 % (13.4-35.0) 12/16/18 06:05 [place] % (Auto) Coil Inspector 12/18/18 06:12 Eos % (Auto) 0.1 % (0.0-4.3) 12/16/18 06:05 Baso % (Auto) 0.5 % (0.0-1.8) 12/16/18 06:05 Lymph # 0.7 K/mm3 (1.2-5.4) L 12/16/18 06:05 [place] # 0.4 K/mm3 (0.0-0.8) 12/16/18 06:05 Eos # 0.0 K/mm3 (0.0-0.4) 12/16/18 06:05 Baso # 0.0 K/mm3 (0.0-0.1) 12/16/18 06:05 Add Manual Diff Complete 12/18/18 06:12 Total Counted 100 12/18/18 06:12 Seg Neutrophils % 71.1 % (40.0-70.0) H 12/16/18 06:05 Seg Neuts % (Manual) 53.0 % (40.0-70.0) 12/18/18 06:12 Band Neutrophils % 0 % 12/18/18 06:12 Lymphocytes % (Manual) 27.0 % (13.4-35.0) 12/18/18 06:12 Reactive Lymphs % (Man) 0 % 12/18/18 06:12 Monocytes % (Manual) 20.0 % (0.0-7.3) H 12/18/18 06:12 Eosinophils % (Manual) 0 % (0.0-4.3) 12/18/18 06:12 Basophils % (Manual) 0 % (0.0-1.8) 12/18/18 06:12 Metamyelocytes % 0 % 12/18/18 06:12 Myelocytes % 0 % 12/18/18 06:12 Promyelocytes % 0 % 12/18/18 06:12 Blast Cells % 0 % 12/18/18 06:12 Nucleated RBC % Not Reportable 12/18/18 06:12 Seg Neutrophils # 2.8 K/mm3 (1.8-7.7) 12/16/18 06:05 Seg Neutrophils # Man 1.7 K/mm3 (1.8-7.7) L 12/18/18 06:12 Band Neutrophils # 0.0 K/mm3 12/18/18 06:12 Lymphocytes # (Manual) 0.9 K/mm3 (1.2-5.4) L 12/18/18 06:12 Abs React Lymphs (Man) 0.0 K/mm3 12/18/18 06:12 Monocytes # (Manual) 0.6 K/mm3 (0.0-0.8) 12/18/18 06:12 Eosinophils # (Manual) 0.0 K/mm3 (0.0-0.4) 12/18/18 06:12 Basophils # (Manual) 0.0 K/mm3 (0.0-0.1) 12/18/18 06:12 Metamyelocytes # 0.0 K/mm3 12/18/18 06:12 Myelocytes # 0.0 K/mm3 12/18/18 06:12 Promyelocytes # 0.0 K/mm3 12/18/18 06:12 Blast Cells # 0.0 K/mm3 12/18/18 06:12 WBC Morphology Not Reportable 12/18/18 06:12 Hypersegmented Neuts Not Reportable 12/18/18 06:12 Hyposegmented Neuts Not Reportable 12/18/18 06:12 Hypogranular Neuts Not Reportable 12/18/18 06:12 Smudge Cells Not Reportable 12/18/18 06:12 Toxic Granulation Not Reportable 12/18/18 06:12 Toxic Vacuolation Not Reportable 12/18/18 06:12 Dohle Bodies Not Reportable 12/18/18 06:12 Pelger-Huet Anomaly Not Reportable 12/18/18 06:12 Torrie Rods Not Reportable 12/18/18 06:12 Platelet Estimate Consistent w auto 12/18/18 06:12 Clumped Platelets Not Reportable 12/18/18 06:12 Plt Clumps, EDTA Not Reportable 12/18/18 06:12 Large Platelets Not Reportable 12/18/18 06:12 Giant Platelets Not Reportable 12/18/18 06:12 Platelet Satelliting Not Reportable 12/18/18 06:12 Plt Morphology Comment Not Reportable 12/18/18 06:12 RBC Morphology Not Reportable 12/18/18 06:12 Dimorphic RBCs Not Reportable 12/18/18 06:12 Polychromasia Not Reportable 12/18/18 06:12 Hypochromasia Not Reportable 12/18/18 06:12 Poikilocytosis Not Reportable 12/18/18 06:12 Anisocytosis Not Reportable 12/18/18 06:12 Microcytosis Not Reportable 12/18/18 06:12 Macrocytosis Not Reportable 12/18/18 06:12 Spherocytes Not Reportable 12/18/18 06:12 Pappenheimer Bodies Not Reportable 12/18/18 06:12 Sickle Cells Not Reportable 12/18/18 06:12 Target Cells Not Reportable 12/18/18 06:12 Tear Drop Cells Not Reportable 12/18/18 06:12 Ovalocytes Few 12/18/18 06:12 Helmet Cells Not Reportable 12/18/18 06:12 Velas[place] Bodies Not Reportable 12/18/18 06:12 [place] Rings Not Reportable 12/18/18 06:12 [place] Cells Not Reportable 12/18/18 06:12 Bite Cells Not Reportable 12/18/18 06:12 Crenated Cell Not Reportable 12/18/18 06:12 Elliptocytes Not Reportable 12/18/18 06:12 Acanthocytes (Spur) Not Reportable 12/18/18 06:12 Rouleaux Not Reportable 12/18/18 06:12 Hemoglobin C Crystals Not Reportable 12/18/18 06:12 Schistocytes Not Reportable 12/18/18 06:12 Malaria parasites Not Reportable 12/18/18 06:12 Ga Bodies Not Reportable 12/18/18 06:12 Hem Pathologist Commnt No 12/18/18 06:12 PT 14.9 Sec. (12.2-14.9) 12/15/18 09:11 INR 1.10 (0.87-1.13) 12/15/18 09:11 APTT 34.3 Sec. (24.2-36.6) 12/15/18 09:11 Sodium 140 mmol/L (137-145) 12/18/18 06:12 Potassium 4.1 mmol/L (3.6-5.0) 12/18/18 06:12 Chloride 98.9 mmol/L (98-107) 12/18/18 06:12 Carbon Dioxide 27 mmol/L (22-30) 12/18/18 06:12 Anion Gap 18 mmol/L 12/18/18 06:12 BUN 18 mg/dL (9-20) 12/18/18 06:12 Creatinine 1.5 mg/dL (0.8-1.5) 12/18/18 06:12 Estimated GFR 57 ml/min 12/18/18 06:12 BUN/Creatinine Ratio 12 % 12/18/18 06:12 Glucose 112 mg/dL (75-100) H 12/18/18 06:12 Lactic Acid 1.50 mmol/L (0.7-2.0) 12/15/18 09:11 Calcium 8.5 mg/dL (8.4-10.2) 12/18/18 06:12 Magnesium 2.00 mg/dL (1.7-2.3) 12/15/18 09:11 Total Bilirubin 0.40 mg/dL (0.1-1.2) 12/15/18 09:11 Direct Bilirubin < 0.2 mg/dL (0-0.2) 12/15/18 09:11 Indirect Bilirubin 0.2 mg/dL 12/15/18 09:11 AST 35 units/L (5-40) 12/15/18 09:11 ALT 29 units/L (7-56) 12/15/18 09:11 Alkaline Phosphatase 47 units/L (35-129) 12/15/18 09:11 Troponin T 0.046 ng/mL (0.00-0.029) H D 12/15/18 21:24 NT-Pro-B Natriuret Pep 815.9 pg/mL (0-900) 12/18/18 06:12 Total Protein 7.2 g/dL (6.3-8.2) 12/15/18 09:11 Albumin 4.0 g/dL (3.9-5) 12/15/18 09:11 Albumin/Globulin Ratio 1.3 % 12/15/18 09:11 Triglycerides 99 mg/dL (2-149) 12/15/18 09:11 Cholesterol 198 mg/dL (50-199) 12/15/18 09:11 LDL Cholesterol Direct 123 mg/dL (50-130) 12/15/18 09:11 HDL Cholesterol 63 mg/dL (40-59) H 12/15/18 09:11 Cholesterol/HDL Ratio 3.14 % 12/15/18 09:11 Urine Color Alla (Yellow) 12/15/18 10:36 Urine Turbidity Clear (Clear) 12/15/18 10:36 Urine pH 5.0 (5.0-7.0) 12/15/18 10:36 Ur Specific [place] 1.028 (1.003-1.030) 12/15/18 10:36 Urine Protein >2000 mg dl mg/dL (Negative) 12/15/18 10:36 Urine Glucose (UA) Neg mg/dL (Negative) 12/15/18 10:36 Urine Ketones Tr mg/dL (Negative) 12/15/18 10:36 Urine Blood Neg (Negative) 12/15/18 10:36 Urine Nitrite Neg (Negative) 12/15/18 10:36 Urine Bilirubin Neg (Negative) 12/15/18 10:36 Urine Urobilinogen < 2.0 mg/dL (<2.0) 12/15/18 10:36 Ur Leukocyte Esterase Neg (Negative) 12/15/18 10:36 Urine WBC (Auto) 1.0 /HPF (0.0-6.0) 12/15/18 10:36 Urine RBC (Auto) < 1.0 /HPF (0.0-6.0) 12/15/18 10:36 U Epithel Cells (Auto) < 1.0 /HPF (0-13.0) 12/15/18 10:36 Urine Bacteria (Auto) 1+ /HPF (Negative) 12/15/18 10:36 Urine Mucus Few /HPF 12/15/18 10:36 HIV 1&2 Antibody Rapid Non react (Non React) 12/17/18 04:30 HIV P24 Antigen Non react (Non React) 12/17/18 04:30
[2018-12-19] MEDS: PRAVACHOL PO SCH (22:32)
[2018-12-20] MEDS: DUONEB *Not for PRN Use IH SCH ×3 (07:51→19:58)
[2018-12-20] MEDS: MUCINEX ER PO SCH ×2 (10:24→23:04)
[2018-12-20] MEDS: LASIX PO SCH (10:24)
[2018-12-20] MEDS: CLARITIN PO SCH (10:25)
[2018-12-20] MEDS: LOPRESSOR PO SCH ×2 (10:26→17:00)
[2018-12-20] MEDS: ROCEPHIN/NS 2 GM/100 ML 2 GM/100 ML BAG IV SCH (10:30)
--- NOTE | 2018-12-20 10:31 | Progress Note ---
Assessment and Plan Cultures: 12/15/2018 blood cultures: No growth at 24 hours 12/15/2018 MRSA culture in process 12/15/2018 sputum culture: Contaminated with saliva -019 AFB smear: negative A/P: 63/M with COPD, hypertension, extensive smoking in the past, quit 8 months ago, prior colon resection: 1) Community acquired pneumonia with hemoptysis: Possibly related to community- acquired pneumonia given acute onset, however chest x-ray does show a right- sided infiltrate especially involving the upper lobe and hence tuberculosis is a part of the differential. For now, will treat with ceftriaxone and azithromycin. Avoid levofloxacin in patients with suspected TB. Continue him on airborne precautions, AFB and HIV tests are pending. TB Quantiferon Gold also ordered. HIV negative CT Chest: There is no evidence for consolidation or mass. Bilateral patchy infiltrates consistent with pneumonia. This could represent atypical pneumonia. Recs: continue ceftriaxone 2 gms IV every 24 hours Discontinued Azithromycin 500mg PO Q 24 , D7 Avoid levofloxacin in patients with suspected TB Continue him on airborne precautions, AFB cultures pending f/u TB Quantiferon Gold [facility] M: [id number] O:[phone] Subjective Date of service: 12/20/18 Interval history: Patient was seen and examined. Observed siting up in the chair. No fevers,rash or SOB . Denies cough or sputum production. Objective - Exam Narrative Exam: Constitutional: Alert, cooperative. No acute distress Head, Ears, Nose: Normocephalic, atraumatic. External ears, nose normal Eyes: Conjunctivae/corneas clear. No icterus. No ptosis. Neck: Supple, no meningeal signs Oral: dentition several missing teeth, no thrush Cardiovascular: RRR Respiratory: Good air entry, clear to auscultation bilaterally GI: Soft, non-tender; bowel sounds normal. No peritoneal signs Musculoskeletal: No pedal edema, no cyanosis. Skin: No rash or abscess Hem/Lymphatic: No palpable cervical or supraclavicular nodes. No lymphangitis Psych: Mood ok. Affect normal Neurological: Awake, alert, oriented. No gross abnormality - Constitutional Vitals: Vital Signs Temp Pulse Resp BP Pulse Ox 97.9 F 77 20 129/80 97 12/20/18 10:04 12/20/18 10:04 12/20/18 10:04 12/20/18 10:04 12/20/18 10:04 Temperature -Last 24 Hours Temperature 97.9 F Temperature 97.7 F Temperature 97.8 F Temperature 97.9 F Temperature 98.1 F - Labs CBC & Chem 7: 12/18/18 06:12 12/18/18 06:12
[2018-12-20] MEDS: K-DUR PO SCH (10:32)
[2018-12-20] MEDS: ZITHROMAX PO SCH (12:37)
--- NOTE | 2018-12-20 13:09 | Progress Note ---
Assessment and Plan Assessment and plan: Bilateral Pneumonia (CAP) -Continue antibiotics with Rocephin and Azithromycin -Chest x-ray positive for right upper lobe infiltrate -Chest CT showed bilateral PNA -Blood cultures neg so far -Sputum unsatisfactory for culture Hemoptysis -cont airborne precautions -sputum for AFB and quantiferon gold pending -HIV neg -chest CT showed bilateral PNA -ID following Elevated troponin -Probably secondary to demand ischemia due to the infection -serial troponin levels stable and no acute chest pain -echocardiogram on 12/15/18 showed EF of 40-45% with diastolic dysfunction and mid anteroseptal and apical anterior wall hypokinesis, mild MR, RVSP 25mmHg. -LHC done 03/2015 showed mild diffuse nonobstructive luminal irregularities, EF 40-45%. -Lexiscan MPI stress test done 11/2017 was negative for scar or ischemia, EF 43%. -cardiology following Chronic diastolic HF with EF of 40-45% -No acute exacerbation RT hip pain -x-ray right hip showed osteoarthritic changes, no fracture Hypertension -Controlled Hyperlipidemia -On statin Obstructive sleep apnea -On CPAP at night COPD -No acute exacerbation -on PRN DuoNeb Obesity with BMI of 33.2 -Lifestyle modification recommended DVT prophylaxis with SCD due to hemoptysis Disposition: For discharge when pending tests are available History Interval history: Patient has no new complaints. Hospitalist Physical - Constitutional Vitals: Temp Pulse Resp BP Pulse Ox 97.6 F 72 18 120/83 96 12/20/18 11:54 12/20/18 11:54 12/20/18 11:54 12/20/18 11:54 12/20/18 11:54 General appearance: Present: no acute distress - EENT Eyes: Present: PERRL, EOM intact ENT: hearing intact, clear oral mucosa - Neck Neck: Present: supple - Respiratory Respiratory effort: normal Respiratory: bilateral: CTA - Cardiovascular Rhythm: regular Heart Sounds: Present: S1 & S2 - Extremities Extremities: No edema - Abdominal General gastrointestinal: soft, non-tender, non-distended, normal bowel sounds - Neurologic Neurologic: CNII-XII intact Results - Labs CBC & Chem 7: 12/18/18 06:12 12/18/18 06:12 Labs: Laboratory Last Values WBC 3.2 K/mm3 (4.5-11.0) L 12/18/18 06:12 RBC 4.56 M/mm3 (3.65-5.03) 12/18/18 06:12 Hgb 13.6 gm/dl (11.8-15.2) 12/18/18 06:12 Hct 40.3 % (35.5-45.6) 12/18/18 06:12 MCV 88 fl (84-94) 12/18/18 06:12 MCH 30 pg (28-32) 12/18/18 06:12 MCHC 34 % (32-34) 12/18/18 06:12 RDW 14.5 % (13.2-15.2) 12/18/18 06:12 Plt Count 153 K/mm3 (140-440) 12/18/18 06:12 Lymph % (Auto) 17.2 % (13.4-35.0) 12/16/18 06:05 [place] % (Auto) District Associate Judge 12/18/18 06:12 Eos % (Auto) 0.1 % (0.0-4.3) 12/16/18 06:05 Baso % (Auto) 0.5 % (0.0-1.8) 12/16/18 06:05 Lymph # 0.7 K/mm3 (1.2-5.4) L 12/16/18 06:05 [place] # 0.4 K/mm3 (0.0-0.8) 12/16/18 06:05 Eos # 0.0 K/mm3 (0.0-0.4) 12/16/18 06:05 Baso # 0.0 K/mm3 (0.0-0.1) 12/16/18 06:05 Add Manual Diff Complete 12/18/18 06:12 Total Counted 100 12/18/18 06:12 Seg Neutrophils % 71.1 % (40.0-70.0) H 12/16/18 06:05 Seg Neuts % (Manual) 53.0 % (40.0-70.0) 12/18/18 06:12 Band Neutrophils % 0 % 12/18/18 06:12 Lymphocytes % (Manual) 27.0 % (13.4-35.0) 12/18/18 06:12 Reactive Lymphs % (Man) 0 % 12/18/18 06:12 Monocytes % (Manual) 20.0 % (0.0-7.3) H 12/18/18 06:12 Eosinophils % (Manual) 0 % (0.0-4.3) 12/18/18 06:12 Basophils % (Manual) 0 % (0.0-1.8) 12/18/18 06:12 Metamyelocytes % 0 % 12/18/18 06:12 Myelocytes % 0 % 12/18/18 06:12 Promyelocytes % 0 % 12/18/18 06:12 Blast Cells % 0 % 12/18/18 06:12 Nucleated RBC % Not Reportable 12/18/18 06:12 Seg Neutrophils # 2.8 K/mm3 (1.8-7.7) 12/16/18 06:05 Seg Neutrophils # Man 1.7 K/mm3 (1.8-7.7) L 12/18/18 06:12 Band Neutrophils # 0.0 K/mm3 12/18/18 06:12 Lymphocytes # (Manual) 0.9 K/mm3 (1.2-5.4) L 12/18/18 06:12 Abs React Lymphs (Man) 0.0 K/mm3 12/18/18 06:12 Monocytes # (Manual) 0.6 K/mm3 (0.0-0.8) 12/18/18 06:12 Eosinophils # (Manual) 0.0 K/mm3 (0.0-0.4) 12/18/18 06:12 Basophils # (Manual) 0.0 K/mm3 (0.0-0.1) 12/18/18 06:12 Metamyelocytes # 0.0 K/mm3 12/18/18 06:12 Myelocytes # 0.0 K/mm3 12/18/18 06:12 Promyelocytes # 0.0 K/mm3 12/18/18 06:12 Blast Cells # 0.0 K/mm3 12/18/18 06:12 WBC Morphology Not Reportable 12/18/18 06:12 Hypersegmented Neuts Not Reportable 12/18/18 06:12 Hyposegmented Neuts Not Reportable 12/18/18 06:12 Hypogranular Neuts Not Reportable 12/18/18 06:12 Smudge Cells Not Reportable 12/18/18 06:12 Toxic Granulation Not Reportable 12/18/18 06:12 Toxic Vacuolation Not Reportable 12/18/18 06:12 Dohle Bodies Not Reportable 12/18/18 06:12 Pelger-Huet Anomaly Not Reportable 12/18/18 06:12 Torrie Rods Not Reportable 12/18/18 06:12 Platelet Estimate Consistent w auto 12/18/18 06:12 Clumped Platelets Not Reportable 12/18/18 06:12 Plt Clumps, EDTA Not Reportable 12/18/18 06:12 Large Platelets Not Reportable 12/18/18 06:12 Giant Platelets Not Reportable 12/18/18 06:12 Platelet Satelliting Not Reportable 12/18/18 06:12 Plt Morphology Comment Not Reportable 12/18/18 06:12 RBC Morphology Not Reportable 12/18/18 06:12 Dimorphic RBCs Not Reportable 12/18/18 06:12 Polychromasia Not Reportable 12/18/18 06:12 Hypochromasia Not Reportable 12/18/18 06:12 Poikilocytosis Not Reportable 12/18/18 06:12 Anisocytosis Not Reportable 12/18/18 06:12 Microcytosis Not Reportable 12/18/18 06:12 Macrocytosis Not Reportable 12/18/18 06:12 Spherocytes Not Reportable 12/18/18 06:12 Pappenheimer Bodies Not Reportable 12/18/18 06:12 Sickle Cells Not Reportable 12/18/18 06:12 Target Cells Not Reportable 12/18/18 06:12 Tear Drop Cells Not Reportable 12/18/18 06:12 Ovalocytes Few 12/18/18 06:12 Helmet Cells Not Reportable 12/18/18 06:12 Velas[place] Bodies Not Reportable 12/18/18 06:12 [place] Rings Not Reportable 12/18/18 06:12 [place] Cells Not Reportable 12/18/18 06:12 Bite Cells Not Reportable 12/18/18 06:12 Crenated Cell Not Reportable 12/18/18 06:12 Elliptocytes Not Reportable 12/18/18 06:12 Acanthocytes (Spur) Not Reportable 12/18/18 06:12 Rouleaux Not Reportable 12/18/18 06:12 Hemoglobin C Crystals Not Reportable 12/18/18 06:12 Schistocytes Not Reportable 12/18/18 06:12 Malaria parasites Not Reportable 12/18/18 06:12 Ga Bodies Not Reportable 12/18/18 06:12 Hem Pathologist Commnt No 12/18/18 06:12 PT 14.9 Sec. (12.2-14.9) 12/15/18 09:11 INR 1.10 (0.87-1.13) 12/15/18 09:11 APTT 34.3 Sec. (24.2-36.6) 12/15/18 09:11 Sodium 140 mmol/L (137-145) 12/18/18 06:12 Potassium 4.1 mmol/L (3.6-5.0) 12/18/18 06:12 Chloride 98.9 mmol/L (98-107) 12/18/18 06:12 Carbon Dioxide 27 mmol/L (22-30) 12/18/18 06:12 Anion Gap 18 mmol/L 12/18/18 06:12 BUN 18 mg/dL (9-20) 12/18/18 06:12 Creatinine 1.5 mg/dL (0.8-1.5) 12/18/18 06:12 Estimated GFR 57 ml/min 12/18/18 06:12 BUN/Creatinine Ratio 12 % 12/18/18 06:12 Glucose 112 mg/dL (75-100) H 12/18/18 06:12 Lactic Acid 1.50 mmol/L (0.7-2.0) 12/15/18 09:11 Calcium 8.5 mg/dL (8.4-10.2) 12/18/18 06:12 Magnesium 2.00 mg/dL (1.7-2.3) 12/15/18 09:11 Total Bilirubin 0.40 mg/dL (0.1-1.2) 12/15/18 09:11 Direct Bilirubin < 0.2 mg/dL (0-0.2) 12/15/18 09:11 Indirect Bilirubin 0.2 mg/dL 12/15/18 09:11 AST 35 units/L (5-40) 12/15/18 09:11 ALT 29 units/L (7-56) 12/15/18 09:11 Alkaline Phosphatase 47 units/L (35-129) 12/15/18 09:11 Troponin T 0.046 ng/mL (0.00-0.029) H D 12/15/18 21:24 NT-Pro-B Natriuret Pep 815.9 pg/mL (0-900) 12/18/18 06:12 Total Protein 7.2 g/dL (6.3-8.2) 12/15/18 09:11 Albumin 4.0 g/dL (3.9-5) 12/15/18 09:11 Albumin/Globulin Ratio 1.3 % 12/15/18 09:11 Triglycerides 99 mg/dL (2-149) 12/15/18 09:11 Cholesterol 198 mg/dL (50-199) 12/15/18 09:11 LDL Cholesterol Direct 123 mg/dL (50-130) 12/15/18 09:11 HDL Cholesterol 63 mg/dL (40-59) H 12/15/18 09:11 Cholesterol/HDL Ratio 3.14 % 12/15/18 09:11 Urine Color Alla (Yellow) 12/15/18 10:36 Urine Turbidity Clear (Clear) 12/15/18 10:36 Urine pH 5.0 (5.0-7.0) 12/15/18 10:36 Ur Specific [place] 1.028 (1.003-1.030) 12/15/18 10:36 Urine Protein >2000 mg dl mg/dL (Negative) 12/15/18 10:36 Urine Glucose (UA) Neg mg/dL (Negative) 12/15/18 10:36 Urine Ketones Tr mg/dL (Negative) 12/15/18 10:36 Urine Blood Neg (Negative) 12/15/18 10:36 Urine Nitrite Neg (Negative) 12/15/18 10:36 Urine Bilirubin Neg (Negative) 12/15/18 10:36 Urine Urobilinogen < 2.0 mg/dL (<2.0) 12/15/18 10:36 Ur Leukocyte Esterase Neg (Negative) 12/15/18 10:36 Urine WBC (Auto) 1.0 /HPF (0.0-6.0) 12/15/18 10:36 Urine RBC (Auto) < 1.0 /HPF (0.0-6.0) 12/15/18 10:36 U Epithel Cells (Auto) < 1.0 /HPF (0-13.0) 12/15/18 10:36 Urine Bacteria (Auto) 1+ /HPF (Negative) 12/15/18 10:36 Urine Mucus Few /HPF 12/15/18 10:36 HIV 1&2 Antibody Rapid Non react (Non React) 12/17/18 04:30 HIV P24 Antigen Non react (Non React) 12/17/18 04:30
[2018-12-20] MEDS: FLONASE NS SCH (13:13)
[2018-12-20] MEDS: PRAVACHOL PO SCH (23:04)
[2018-12-21 06:07] LABS: Hematocrit 38.8 % (35.5-45.6); Hemoglobin 13.2 gm/dl (11.8-15.2); Mean Corpuscular HGB Conc 34 % (32-34); Mean Corpuscular Volume 89 fl (84-94); Platelet Count 155 K/mm3 (140-440); Red Blood Count 4.39 M/mm3 (3.65-5.03); Red Cell Distribution Width 14.4 % (13.2-15.2)
[2018-12-21 06:50] LABS: BUN/Creatinine Ratio 9; Blood Urea Nitrogen 9 mg/dL (9-20); Calcium 8.3 mg/dL (8.4-10.2); Hemolysis Index 5
[2018-12-21] MEDS: LOPRESSOR PO SCH ×2 (07:59→16:34)
[2018-12-21] MEDS: DUONEB *Not for PRN Use IH SCH ×3 (09:09→19:19)
--- NOTE | 2018-12-21 09:21 | Progress Note ---
Assessment and Plan Cultures: 12/15/2018 blood cultures: No growth at 24 hours 12/15/2018 MRSA culture in process 12/15/2018 sputum culture: Contaminated with saliva -019 AFB smear: negative time 2 A/P: 63/M with COPD, hypertension, extensive smoking in the past, quit 8 months ago, prior colon resection: 1) Community acquired pneumonia with hemoptysis: Possibly related to community- acquired pneumonia given acute onset, however chest x-ray does show a right- sided infiltrate especially involving the upper lobe and hence tuberculosis is a part of the differential. For now, will treat with ceftriaxone and azithromycin. Avoid levofloxacin in patients with suspected TB. Continue him on airborne precautions, AFB and HIV tests are pending. TB Quantiferon Gold also ordered. HIV negative CT Chest: There is no evidence for consolidation or mass. Bilateral patchy infiltrates consistent with pneumonia. This could represent atypical pneumonia. Recs: Discontinue ceftriaxone 2 gms IV every 24 hours, completed 5 days Discontinued Azithromycin 500mg PO Q 24 , D7, completed 7 days no need for systemic antibiotics Discontinue airborne precautions, Discussed with Dr. Bartlett, can be discharged, from ID standpoint. Low probability for TB, AFB cultures times 2 negative. Original Quantiferon gold not sent, Will repeat and resend before discharge. -f/u ID clinic 01-07-19 for results. d/w Dr. Dhruv Angel, [facility] M: [id number] O:[phone] Subjective Date of service: 12/21/18 Interval history: Patient was seen and examined. Observed siting up in the chair. Fevers, rashes, SOB or cough. Discharge plan discussed, will follow up with ID clinic 01-07-19 for test results, verbalized understanding. Objective - Exam Narrative Exam: Constitutional: Alert, cooperative. No acute distress Head, Ears, Nose: Normocephalic, atraumatic. External ears, nose normal Eyes: Conjunctivae/corneas clear. No icterus. No ptosis. Neck: Supple, no meningeal signs Oral: dentition several missing teeth, no thrush Cardiovascular: RRR Respiratory: Good air entry, clear to auscultation bilaterally GI: Soft, non-tender; bowel sounds normal. No peritoneal signs Musculoskeletal: No pedal edema, no cyanosis. Skin: No rash or abscess Hem/Lymphatic: No palpable cervical or supraclavicular nodes. No lymphangitis Psych: Mood ok. Affect normal Neurological: Awake, alert, oriented. No gross abnormality - Constitutional Vitals: Vital Signs Temp Pulse Resp BP Pulse Ox 97.6 F 70 17 141/102 98 12/21/18 05:54 12/21/18 09:17 12/21/18 09:17 12/21/18 07:59 12/21/18 05:54 Temperature -Last 24 Hours Temperature 97.6 F Temperature 98.4 F Temperature 97.7 F Temperature 98.2 F Temperature 99.6 F Temperature 97.6 F Temperature 97.9 F - Labs CBC & Chem 7: 12/21/18 05:09 12/21/18 05:09 Labs: Abnormal lab results 12/21/18 12/21/18 Range/Units 05:09 05:09 WBC 3.3 L (4.5-11.0) K/mm3 Calcium 8.3 L (8.4-10.2) mg/dL
[2018-12-21 09:39] LABS: Basophils % (Manual) 0 % (0.0-1.8); Total Cells Counted 100
[2018-12-21 09:40] LABS: Ovalocytes Few; Platelet Estimate Consistent w Auto; Poikilocytosis 1+
[2018-12-21] MEDS: ROCEPHIN/NS 2 GM/100 ML 2 GM/100 ML BAG IV SCH (10:27)
[2018-12-21] MEDS: K-DUR PO SCH (10:28)
[2018-12-21] MEDS: LASIX PO SCH (10:28)
[2018-12-21] MEDS: MUCINEX ER PO SCH ×2 (10:28→23:38)
[2018-12-21] MEDS: CLARITIN PO SCH (10:28)
[2018-12-21] MEDS: FLONASE NS SCH (10:29)
--- NOTE | 2018-12-21 13:07 | Progress Note ---
Subjective Date of service: 12/21/18 Interval history: Patient is resting in the bed offers no specific complaints denies any chest pain or shortness of breath Denies fever or chills Bilateral Pneumonia (CAP) -Completed course of Rocephin and Azithromycin -Chest x-ray positive for right upper lobe infiltrate -Chest CT showed bilateral PNA -Blood cultures neg so far -Sputum unsatisfactory for culture Hemoptysis -cont airborne precautions -sputum for AFB negative and quantiferon gold pending -HIV neg -chest CT showed bilateral PNA -ID following -Patient will be discharged when cleared by ID Elevated troponin -Probably secondary to demand ischemia due to the infection -serial troponin levels stable and no acute chest pain -echocardiogram on 12/15/18 showed EF of 40-45% with diastolic dysfunction and mid anteroseptal and apical anterior wall hypokinesis, mild MR, RVSP 25mmHg. -LHC done 03/2015 showed mild diffuse nonobstructive luminal irregularities, EF 40-45%. -Lexiscan MPI stress test done 11/2017 was negative for scar or ischemia, EF 43%. Chronic diastolic HF with EF of 40-45% -No acute exacerbation RT hip pain -x-ray right hip showed osteoarthritic changes, no fracture Hypertension -Controlled Hyperlipidemia -On statin Obstructive sleep apnea -On CPAP at night COPD -No acute exacerbation -on PRN DuoNeb Obesity with BMI of 33.2 -Lifestyle modification recommended DVT prophylaxis with SCD due to hemoptysis Disposition: For discharge when pending tests are available Objective: HEENT: Normocephalic pupils are round reacting to light throat is clear Neck: Supple no significant adenopathy no thyromegaly Lungs: Clear to auscultation but diminished Abdomen: Soft nontender no hepatosplenomegaly Extremities: No leg edema [employer]: Alert and oriented 3 there is no focal deficit Psychiatry: Appropriate mood and affect Objective - Constitutional Vitals: Vital Signs - 12hr 12/21/18 12/21/18 12/21/18 05:54 07:59 09:09 Temperature 97.6 F Pulse Rate 76 73 Pulse Rate [ 73 Bilateral Throughout] Respiratory 18 Rate Respiratory 16 Rate [Bilateral Throughout] Blood Pressure 128/80 141/102 O2 Sat by Pulse 98 Oximetry 12/21/18 12/21/18 09:17 11:32 Temperature 98.5 F Pulse Rate 75 Pulse Rate [ 70 Bilateral Throughout] Respiratory 22 Rate Respiratory 17 Rate [Bilateral Throughout] Blood Pressure 128/97 O2 Sat by Pulse 95 Oximetry - Labs CBC & Chem 7: 12/21/18 05:09 12/21/18 05:09 Labs: Abnormal lab results 12/21/18 12/21/18 Range/Units 05:09 05:09 WBC 3.3 L (4.5-11.0) K/mm3 Seg Neuts % (Manual) 37.0 L (40.0-70.0) % Monocytes % (Manual) 27.0 H (0.0-7.3) % Eosinophils % (Manual) 10.0 H (0.0-4.3) % Seg Neutrophils # Man 1.2 L (1.8-7.7) K/mm3 Lymphocytes # (Manual) 0.9 L (1.2-5.4) K/mm3 Monocytes # (Manual) 0.9 H (0.0-0.8) K/mm3 Calcium 8.3 L (8.4-10.2) mg/dL
[2018-12-21] MEDS: PRAVACHOL PO SCH (23:38)
[2018-12-22] MEDS: DUONEB *Not for PRN Use IH SCH ×2 (08:10→14:25)
[2018-12-22] MEDS: LOPRESSOR PO SCH (08:38)
--- NOTE | 2018-12-22 09:22 | Progress Note ---
Assessment and Plan Cultures: 12/15/2018 blood cultures: No growth at 24 hours 12/15/2018 MRSA culture in process 12/15/2018 sputum culture: Contaminated with saliva -019 AFB smear: negative time 2 A/P: 63/M with COPD, hypertension, extensive smoking in the past, quit 8 months ago, prior colon resection: 1) Community acquired pneumonia with hemoptysis: Possibly related to community- acquired pneumonia given acute onset, however chest x-ray does show a right- sided infiltrate especially involving the upper lobe and hence tuberculosis is a part of the differential. For now, will treat with ceftriaxone and azithromycin. Avoid levofloxacin in patients with suspected TB. Continue him on airborne precautions, AFB and HIV tests are pending. TB Quantiferon Gold also ordered. HIV negative CT Chest: There is no evidence for consolidation or mass. Bilateral patchy infiltrates consistent with pneumonia. This could represent atypical pneumonia. Recs: Discontinue airborne precautions, Discussed with Dr. Bartlett, can be discharged, from ID standpoint. Low probability for TB, AFB cultures times 2 negative. Original Quantiferon gold not sent, Will repeat and resend before discharge. -f/u ID clinic 01-07-19 for results. d/w Dr. Dhruv Angel, [facility] M: [phone] O:[phone] Subjective Date of service: 12/22/18 Interval history: Patient was seen and examined. Observed siting up in the chair. Discharge plan discussed and reinforced, will follow up with ID clinic 01-07-19 for test results, verbalized understanding. Objective - Exam Narrative Exam: Constitutional: Alert, cooperative. No acute distress Head, Ears, Nose: Normocephalic, atraumatic. External ears, nose normal Eyes: Conjunctivae/corneas clear. No icterus. No ptosis. Neck: Supple, no meningeal signs Oral: dentition several missing teeth, no thrush Cardiovascular: RRR Respiratory: Good air entry, clear to auscultation bilaterally GI: Soft, non-tender; bowel sounds normal. No peritoneal signs Musculoskeletal: No pedal edema, no cyanosis. Skin: No rash or abscess Hem/Lymphatic: No palpable cervical or supraclavicular nodes. No lymphangitis Psych: Mood ok. Affect normal Neurological: Awake, alert, oriented. No gross abnormality - Constitutional Vitals: Vital Signs Temp Pulse Resp BP Pulse Ox 97.5 F L 72 15 146/105 97 12/22/18 05:35 12/22/18 08:17 12/22/18 08:17 12/22/18 05:35 12/22/18 05:35 Temperature -Last 24 Hours Temperature 97.5 F Temperature 97.5 F Temperature 97.5 F Temperature 98.5 F - Labs CBC & Chem 7: 12/21/18 05:09 12/21/18 05:09 Labs: Abnormal lab results 12/21/18 Range/Units 05:09 Seg Neuts % (Manual) 37.0 L (40.0-70.0) % Monocytes % (Manual) 27.0 H (0.0-7.3) % Eosinophils % (Manual) 10.0 H (0.0-4.3) % Seg Neutrophils # Man 1.2 L (1.8-7.7) K/mm3 Lymphocytes # (Manual) 0.9 L (1.2-5.4) K/mm3 Monocytes # (Manual) 0.9 H (0.0-0.8) K/mm3
[2018-12-22] MEDS: MUCINEX ER PO SCH (09:43)
[2018-12-22] MEDS: K-DUR PO SCH (09:44)
[2018-12-22] MEDS: CLARITIN PO SCH (09:44)
[2018-12-22] MEDS: FLONASE NS SCH (09:44)
[2018-12-22] MEDS: LASIX PO SCH (09:44)
--- NOTE | 2018-12-22 10:27 | Progress Note ---
Assessment and Plan Assessment and plan: Patient is resting in the bed offers no specific complaints denies any chest pain or shortness of breath Denies fever or chills Bilateral Pneumonia (CAP) -Completed course of Rocephin and Azithromycin -Chest x-ray positive for right upper lobe infiltrate -Chest CT showed bilateral PNA -Blood cultures neg so far -Sputum unsatisfactory for culture Hemoptysis -cont airborne precautions -sputum for AFB negative and quantiferon gold pending -HIV neg -chest CT showed bilateral PNA -ID following -Patient will be discharged when cleared by ID Elevated troponin -Probably secondary to demand ischemia due to the infection -serial troponin levels stable and no acute chest pain -echocardiogram on 12/15/18 showed EF of 40-45% with diastolic dysfunction and mid anteroseptal and apical anterior wall hypokinesis, mild MR, RVSP 25mmHg. -LHC done 03/2015 showed mild diffuse nonobstructive luminal irregularities, EF 40-45%. -Lexiscan MPI stress test done 11/2017 was negative for scar or ischemia, EF 43%. Chronic diastolic HF with EF of 40-45% -No acute exacerbation RT hip pain -x-ray right hip showed osteoarthritic changes, no fracture Hypertension -Controlled Hyperlipidemia -On statin Obstructive sleep apnea -On CPAP at night COPD -No acute exacerbation -on PRN DuoNeb Obesity with BMI of 33.2 -Lifestyle modification recommended DVT prophylaxis with SCD due to hemoptysis Disposition: For discharge when pending tests are available Hospitalist Physical - Constitutional Vitals: Temp Pulse Resp BP Pulse Ox 97.5 F L 72 15 146/105 97 12/22/18 05:35 12/22/18 08:17 12/22/18 08:17 12/22/18 05:35 12/22/18 05:35 General appearance: Present: no acute distress Results - Labs CBC & Chem 7: 12/21/18 05:09 12/21/18 05:09 Labs: Laboratory Last Values WBC 3.3 K/mm3 (4.5-11.0) L 12/21/18 05:09 RBC 4.39 M/mm3 (3.65-5.03) 12/21/18 05:09 Hgb 13.2 gm/dl (11.8-15.2) 12/21/18 05:09 Hct 38.8 % (35.5-45.6) 12/21/18 05:09 MCV 89 fl (84-94) 12/21/18 05:09 MCH 30 pg (28-32) 12/21/18 05:09 MCHC 34 % (32-34) 12/21/18 05:09 RDW 14.4 % (13.2-15.2) 12/21/18 05:09 Plt Count 155 K/mm3 (140-440) 12/21/18 05:09 Lymph % (Auto) 17.2 % (13.4-35.0) 12/16/18 06:05 Williams % (Auto) Vein Pumper 12/21/18 05:09 Eos % (Auto) 0.1 % (0.0-4.3) 12/16/18 06:05 Baso % (Auto) 0.5 % (0.0-1.8) 12/16/18 06:05 Lymph # 0.7 K/mm3 (1.2-5.4) L 12/16/18 06:05 Williams # 0.4 K/mm3 (0.0-0.8) 12/16/18 06:05 Eos # 0.0 K/mm3 (0.0-0.4) 12/16/18 06:05 Baso # 0.0 K/mm3 (0.0-0.1) 12/16/18 06:05 Add Manual Diff Complete 12/21/18 05:09 Total Counted 100 12/21/18 05:09 Seg Neutrophils % 71.1 % (40.0-70.0) H 12/16/18 06:05 Seg Neuts % (Manual) 37.0 % (40.0-70.0) L 12/21/18 05:09 Band Neutrophils % 0 % 12/21/18 05:09 Lymphocytes % (Manual) 26.0 % (13.4-35.0) 12/21/18 05:09 Reactive Lymphs % (Man) 0 % 12/21/18 05:09 Monocytes % (Manual) 27.0 % (0.0-7.3) H 12/21/18 05:09 Eosinophils % (Manual) 10.0 % (0.0-4.3) H 12/21/18 05:09 Basophils % (Manual) 0 % (0.0-1.8) 12/21/18 05:09 Metamyelocytes % 0 % 12/21/18 05:09 Myelocytes % 0 % 12/21/18 05:09 Promyelocytes % 0 % 12/21/18 05:09 Blast Cells % 0 % 12/21/18 05:09 Nucleated RBC % Not Reportable 12/21/18 05:09 Seg Neutrophils # 2.8 K/mm3 (1.8-7.7) 12/16/18 06:05 Seg Neutrophils # Man 1.2 K/mm3 (1.8-7.7) L 12/21/18 05:09 Band Neutrophils # 0.0 K/mm3 12/21/18 05:09 Lymphocytes # (Manual) 0.9 K/mm3 (1.2-5.4) L 12/21/18 05:09 Abs React Lymphs (Man) 0.0 K/mm3 12/21/18 05:09 Monocytes # (Manual) 0.9 K/mm3 (0.0-0.8) H 12/21/18 05:09 Eosinophils # (Manual) 0.3 K/mm3 (0.0-0.4) 12/21/18 05:09 Basophils # (Manual) 0.0 K/mm3 (0.0-0.1) 12/21/18 05:09 Metamyelocytes # 0.0 K/mm3 12/21/18 05:09 Myelocytes # 0.0 K/mm3 12/21/18 05:09 Promyelocytes # 0.0 K/mm3 12/21/18 05:09 Blast Cells # 0.0 K/mm3 12/21/18 05:09 WBC Morphology Not Reportable 12/21/18 05:09 Hypersegmented Neuts Not Reportable 12/21/18 05:09 Hyposegmented Neuts Not Reportable 12/21/18 05:09 Hypogranular Neuts Not Reportable 12/21/18 05:09 Smudge Cells Not Reportable 12/21/18 05:09 Toxic Granulation Not Reportable 12/21/18 05:09 Toxic Vacuolation Not Reportable 12/21/18 05:09 Dohle Bodies Not Reportable 12/21/18 05:09 Pelger-Huet Anomaly Not Reportable 12/21/18 05:09 Torrie Rods Not Reportable 12/21/18 05:09 Platelet Estimate Consistent w auto 12/21/18 05:09 Clumped Platelets Not Reportable 12/21/18 05:09 Plt Clumps, EDTA Not Reportable 12/21/18 05:09 Large Platelets Not Reportable 12/21/18 05:09 Giant Platelets Not Reportable 12/21/18 05:09 Platelet Satelliting Not Reportable 12/21/18 05:09 Plt Morphology Comment Not Reportable 12/21/18 05:09 RBC Morphology Not Reportable 12/21/18 05:09 Dimorphic RBCs Not Reportable 12/21/18 05:09 Polychromasia Not Reportable 12/21/18 05:09 Hypochromasia Not Reportable 12/21/18 05:09 Poikilocytosis 1+ 12/21/18 05:09 Anisocytosis Not Reportable 12/21/18 05:09 Microcytosis Not Reportable 12/21/18 05:09 Macrocytosis Not Reportable 12/21/18 05:09 Spherocytes Not Reportable 12/21/18 05:09 Pappenheimer Bodies Not Reportable 12/21/18 05:09 Sickle Cells Not Reportable 12/21/18 05:09 Target Cells Not Reportable 12/21/18 05:09 Tear Drop Cells Not Reportable 12/21/18 05:09 Ovalocytes Few 12/21/18 05:09 Helmet Cells Not Reportable 12/21/18 05:09 Velasquez[place] Bodies Not Reportable 12/21/18 05:09 [place] Rings Not Reportable 12/21/18 05:09 [place] Cells Not Reportable 12/21/18 05:09 Bite Cells Not Reportable 12/21/18 05:09 Crenated Cell Not Reportable 12/21/18 05:09 Elliptocytes Not Reportable 12/21/18 05:09 Acanthocytes (Spur) Not Reportable 12/21/18 05:09 Rouleaux Not Reportable 12/21/18 05:09 Hemoglobin C Crystals Not Reportable 12/21/18 05:09 Schistocytes Not Reportable 12/21/18 05:09 Malaria parasites Not Reportable 12/21/18 05:09 Ga Bodies Not Reportable 12/21/18 05:09 Hem Pathologist Commnt No 12/21/18 05:09 PT 14.9 Sec. (12.2-14.9) 12/15/18 09:11 INR 1.10 (0.87-1.13) 12/15/18 09:11 APTT 34.3 Sec. (24.2-36.6) 12/15/18 09:11 Sodium 141 mmol/L (137-145) 12/21/18 05:09 Potassium 4.5 mmol/L (3.6-5.0) 12/21/18 05:09 Chloride 104.2 mmol/L (98-107) 12/21/18 05:09 Carbon Dioxide 27 mmol/L (22-30) 12/21/18 05:09 Anion Gap 14 mmol/L 12/21/18 05:09 BUN 9 mg/dL (9-20) 12/21/18 05:09 Creatinine 1.0 mg/dL (0.8-1.5) 12/21/18 05:09 Estimated GFR > 60 ml/min 12/21/18 05:09 BUN/Creatinine Ratio 9 % 12/21/18 05:09 Glucose 93 mg/dL (75-100) 12/21/18 05:09 Lactic Acid 1.50 mmol/L (0.7-2.0) 12/15/18 09:11 Calcium 8.3 mg/dL (8.4-10.2) L 12/21/18 05:09 Magnesium 2.30 mg/dL (1.7-2.3) 12/20/18 23:17 Total Bilirubin 0.40 mg/dL (0.1-1.2) 12/15/18 09:11 Direct Bilirubin < 0.2 mg/dL (0-0.2) 12/15/18 09:11 Indirect Bilirubin 0.2 mg/dL 12/15/18 09:11 AST 35 units/L (5-40) 12/15/18 09:11 ALT 29 units/L (7-56) 12/15/18 09:11 Alkaline Phosphatase 47 units/L (35-129) 12/15/18 09:11 Troponin T 0.046 ng/mL (0.00-0.029) H D 12/15/18 21:24 NT-Pro-B Natriuret Pep 815.9 pg/mL (0-900) 12/18/18 06:12 Total Protein 7.2 g/dL (6.3-8.2) 12/15/18 09:11 Albumin 4.0 g/dL (3.9-5) 12/15/18 09:11 Albumin/Globulin Ratio 1.3 % 12/15/18 09:11 Triglycerides 99 mg/dL (2-149) 12/15/18 09:11 Cholesterol 198 mg/dL (50-199) 12/15/18 09:11 LDL Cholesterol Direct 123 mg/dL (50-130) 12/15/18 09:11 HDL Cholesterol 63 mg/dL (40-59) H 12/15/18 09:11 Cholesterol/HDL Ratio 3.14 % 12/15/18 09:11 Urine Color Alla (Yellow) 12/15/18 10:36 Urine Turbidity Clear (Clear) 12/15/18 10:36 Urine pH 5.0 (5.0-7.0) 12/15/18 10:36 Ur Specific [place] 1.028 (1.003-1.030) 12/15/18 10:36 Urine Protein >2000 mg dl mg/dL (Negative) 12/15/18 10:36 Urine Glucose (UA) Neg mg/dL (Negative) 12/15/18 10:36 Urine Ketones Tr mg/dL (Negative) 12/15/18 10:36 Urine Blood Neg (Negative) 12/15/18 10:36 Urine Nitrite Neg (Negative) 12/15/18 10:36 Urine Bilirubin Neg (Negative) 12/15/18 10:36 Urine Urobilinogen < 2.0 mg/dL (<2.0) 12/15/18 10:36 Ur Leukocyte Esterase Neg (Negative) 12/15/18 10:36 Urine WBC (Auto) 1.0 /HPF (0.0-6.0) 12/15/18 10:36 Urine RBC (Auto) < 1.0 /HPF (0.0-6.0) 12/15/18 10:36 U Epithel Cells (Auto) < 1.0 /HPF (0-13.0) 12/15/18 10:36 Urine Bacteria (Auto) 1+ /HPF (Negative) 12/15/18 10:36 Urine Mucus Few /HPF 12/15/18 10:36 HIV 1&2 Antibody Rapid Non react (Non React) 12/17/18 04:30 HIV P24 Antigen Non react (Non React) 12/17/18 04:30
[2018-12-22 11:34] VITALS: BP 125/84
--- NOTE | 2018-12-22 14:14 | Discharge Summary ---
Providers - Providers Date of Admission: 12/15/18 09:26 Date of discharge: 12/22/18 Attending physician: BILL BARRERA 12/15/18 16:19 Consult to Physician [CONS] Routine Comment: Consulting Provider: KWAME CHEEK Physician Instructions: Reason For Exam: hemoptysis Primary care physician: TRINIDAD YATES Hospitalization Reason for admission: hemoptysis Condition: Stable Pertinent studies: Chest x-ray; patchy airspace disease in the anterior segment of the right upper lobe compatible with pneumonia Hip x-ray; early osteoarthritic changes CT chest; bilateral patchy infiltrates consistent with pneumonia possible atypical pneumonia Hospital course: 63-year-old male patient with significant history of COPD hypertension obstructive sleep apnea congestive heart failure was admitted through emergency room with hemoptysis of 2 days' duration., Patient was initially evaluated admitted to the hospital symptomatically managed, started airborne isolation to rule out tuberculosis, subsequently evaluated by infectious diseases, had extensive workup, HIV negative, CT chest atypical pneumonia, I do feel it is unlikely tuberculosis, DC'd. Airborne precautions, low probability for PE B AFB cultures 2 negative, cleared for discharge and follow up with ID per schedule Today patient is comfortable no new complaints, Vital signs stable Physical examination unremarkable Patient ID for discharge and follow up in the office Discharge diagnosis: --Bilateral Pneumonia (CAP)/atypical pneumonia --Hemoptysis; resolved unlikely tuberculosis, Workup so far is negative, sputum for AFB negative and quantiferon gold pending, HIV neg, ID evaluated --Elevated troponin, secondary to demand ischemia serial troponin levels stable and no acute chest pain echocardiogram on 12/15/18 showed EF of 40-45% with diastolic dysfunction and mid anteroseptal and apical anterior wall hypokinesis, mild MR, RVSP 25mmHg. LHC done 03/2015 showed mild diffuse nonobstructive luminal irregularities, EF 40-45%. Lexiscan MPI stress test done 11/2017 was negative for scar or ischemia, EF 43%. --Chronic diastolic HF with EF of 40-45%; stable --RT hip pain; x-ray right hip showed osteoarthritic changes, no fracture --Hypertension : Controlled --Hyperlipidemia: On statin --Obstructive sleep apnea: On CPAP at night --COPD: stable --Obesity with BMI of 33.2: Lifestyle modification , weight reduction --DVT prophylaxis with SCD Stable for discharge Disposition: DC-01 TO HOME OR SELFCARE Time spent for discharge: 32 min Core Measure Documentation - Palliative Care Palliative Care/ Comfort Measures: Not Applicable - Core Measures Any of the following diagnoses?: none Exam - Constitutional Vitals: Temp Pulse Resp BP Pulse Ox 98.2 F 73 20 125/84 97 12/22/18 11:23 12/22/18 11:23 12/22/18 11:23 12/22/18 11:23 12/22/18 11:23 General appearance: Present: no acute distress, well-nourished, obese - EENT Eyes: Present: PERRL, EOM intact - Neck Neck: Present: supple, normal ROM - Respiratory Respiratory effort: normal Respiratory: bilateral: diminished, negative: rales, rhonchi, wheezing - Cardiovascular Rhythm: regular Heart Sounds: Present: S1 & S2 - Extremities Extremities: no ischemia, No edema - Abdominal General gastrointestinal: Present: soft, non-tender, non-distended, normal bowel sounds - Integumentary Integumentary: Present: clear, warm - Musculoskeletal Musculoskeletal: strength equal bilaterally - Psychiatric Psychiatric: appropriate mood/affect, cooperative - Neurologic Neurologic: CNII-XII intact, moves all extremities Plan Activity: no restrictions Diet: low salt Follow up with: TRINIDAD YATES MD [Primary Care Provider] - 3-5 Days SAL RED MD [Staff Physician] - 7 Days KWAME CHEEK MD [Staff Physician] - 7 Days Prescriptions: guaiFENesin ER [Mucinex ER] 600 mg PO BID #30 tablet Loratadine [Claritin] 10 mg PO DAILY #20 tablet
== END 2018-12-22 16:39 | disposition home or self-care (01) | DRG 190 ==
LOC: ED 04:14 → 3A 09:26
PROVIDERS: ADMIT Internal Medicine; ATTEND Internal Medicine
PROC: 5A09357 Assistance with Respiratory Ventilation, Less than 24 Consecutive Hours, Continuous Positive Airway Pressure (ICD-10-PCS; principal; 2018-12-15)
DX: J44.0 Chronic obstructive pulmonary disease with (acute) lower respiratory infection (principal); J18.1 Lobar pneumonia, unspecified organism; I50.32 Chronic diastolic (congestive) heart failure; R59.1 Generalized enlarged lymph nodes; M25.551 Pain in right hip; E78.5 Hyperlipidemia, unspecified; I25.10 Atherosclerotic heart disease of native coronary artery without angina pectoris; K21.9 Gastro-esophageal reflux disease without esophagitis; E66.9 Obesity, unspecified; R59.0 Localized enlarged lymph nodes; I11.0 Hypertensive heart disease with heart failure; G47.33 Obstructive sleep apnea (adult) (pediatric); Z90.49 Acquired absence of other specified parts of digestive tract; Z87.891 Personal history of nicotine dependence; Z68.33 Body mass index [BMI] 33.0-33.9, adult
CPT/HCPCS: 36415; 71046; 71250; 80048; 80061; 80076; 81001; 82140; 83735; 83880; 84484; 85007; 85025; 85027; 85610; 85730; 87040; 87070; 87116; 87205; 87449; 87806; 90686; 90732; 93005; 93010; 93306; 94640; 94660; G0378; A9270-GY; J0456; J0696; J1940; J1956; J2405; J7050

== ENCOUNTER 2020-08-02 10:42 | Outpatient (CLI) | payer OTHER ==
[2020-08-02 11:22] LABS: Hematocrit 40.4 % (35.5-45.6); Hemoglobin 13.5 gm/dl (11.8-15.2); Mean Corpuscular HGB Conc 33 % (32-34); Mean Corpuscular Volume 88 fl (84-94); Platelet Count 221 K/mm3 (140-440); Red Blood Count 4.57 M/mm3 (3.65-5.03); Red Cell Distribution Width 16.1 % (13.2-15.2)
[2020-08-02 11:55] LABS: Alanine Aminotransferase 27 units/L (7-56); Albumin 4.3 g/dL (3.9-5); BUN/Creatinine Ratio 20; Blood Urea Nitrogen 22 mg/dL (9-20); Calcium 10.1 mg/dL (8.4-10.2); Hemolysis Index 6
[2020-08-02 11:57] LABS: ABG Base Excess -0.4 mmol/L (-2.0-3.0); ABG HCO3 24.8 mmol/L (20.0-26.0); ABG Methemoglobin 0.6 % (0.0-1.5); ABG Oxygen Saturation 96.2 % (95.0-99.0); ABG PCO2 42.5 mm Hg; ABG PH 7.383 pH Units (7.350-7.450); ABG PO2 79.4 mm Hg (80.0-90.0)
--- NOTE | 2020-08-02 13:31 | XRay Report ---
CHEST 2 VIEWS INDICATION / CLINICAL INFORMATION: FOLLOWUP FROM COVID AND PNEUMONIA. COMPARISON: 05/08/2020 FINDINGS: SUPPORT DEVICES: None. HEART / MEDIASTINUM: No significant abnormality. LUNGS / PLEURA: No significant pulmonary or pleural abnormality. No pneumothorax. ADDITIONAL FINDINGS: No significant additional findings. IMPRESSION: Previously seen airspace disease has resolved prior examination dated 05/08/2020. On today's examinati on, there is no acute disease. Signer Name: Sanjiv Esteves MD FACR Signed: 08/02/2020 1:27 PM Workstation Name: [email or web address]
== END 2020-08-02 10:43 | disposition home or self-care (01) ==
LOC: XRAY 10:42
PROVIDERS: ATTEND Internal Medicine
DX: J18.9 Pneumonia, unspecified organism (principal)
CPT/HCPCS: 36415; 71046; 80053; 82728; 82803; 85027; 85379